=== PATIENT | male | born 1970 | race Caucasian/White ===

== ENCOUNTER 2021-01-18 15:37 | Inpatient (IN) | payer OTHER, MEDICAID, SELFPAY ==
[2021-01-18 17:24] VITALS: BP 145/79; PULSE 50; RESP 18; TEMP 36.8; O2SAT 100; BMI 30.7
--- NOTE | 2021-01-18 17:49 | ED_ITS ---
HPI - Psych General Chief Complaint: Psychiatric Symptoms <Belen Garcia PA-C - Last Filed: 01/18/21 17:53> Stated Complaint: psych eval <Belen Garcia PA-C - Last Filed: 01/18/21 17:53> Time Seen by Provider: 01/18/21 17:47 <Belen Garcia PA-C - Last Filed: 01/18/21 17:53> Source: patient <Belen Garcia PA-C - Last Filed: 01/18/21 17:53> Mode of arrival: ambulatory <Belen Garcia PA-C - Last Filed: 01/18/21 17:53> Limitations: no limitations <Belen Garcia PA-C - Last Filed: 01/18/21 17:53> History of Present Illness HPI Narrative: Patient is a 50-year-old male with past medical history of PTSD, depression, recovering addict x13 years, bariatric surgery, GERD, HLD and seasonal allergies who is here claiming he is severely depressed and looking for help. He states he also relapsed and used heroin 2 days ago and again today. He states he lost his job and he has been having difficulties with his significant other. He wants to get help, he does not want to do drugs but needs help with his psychiatric issues. He does state he has a therapist and does take sertraline and clonidine but this is not working well for him. <Belen Garcia PA-C - Last Filed: 01/18/21 17:53> Related Data Allergies/Adverse Reactions: Allergies Allergy/AdvReac Type Severity Reaction Status Date / Time No Known Allergies Allergy Unverified 01/12/20 19:45 [No Known Allergies*] <Belen Garcia PA-C - Last Filed: 01/18/21 17:53> Review of Systems Review of Systems: Yes all other systems are reviewed and are negative <Belen Garcia PA-C - Last Filed: 01/18/21 17:53> [facility] Social History Social History: Social History Advance Directives: No Advance Directives Information Provided: No <Belen Garcia PA-C - Last Filed: 01/18/21 17:53> Physical Exam Vital Signs: Vital Signs: Last Vital Signs Temp 98.2 F 01/18/21 17:24 Pulse 50 01/18/21 17:24 Resp 18 01/18/21 17:24 BP 145/79 H 01/18/21 17:24 Pulse Ox 100 01/18/21 17:24 Body Mass Index 30.7 <Belen Garcia PA-C - Last Filed: 01/18/21 17:53> Vital Signs: Last Vital Signs Temp 98.2 F 01/18/21 17:24 Pulse 50 01/18/21 17:24 Resp 18 01/18/21 17:24 BP 145/79 H 01/18/21 17:24 Pulse Ox 100 01/18/21 17:24 Body Mass Index 30.7 <KANDICE Doe - Last Filed: 01/18/21 20:44> Const: General: cooperative, healthy appearing, comfortable, no acute distress and well developed <Belen Garcia PA-C - Last Filed: 01/18/21 17:53> Orientation/consciousness: patient oriented x3 <OLINDA Williamson Last Filed: 01/18/21 17:53> Limitations: no limitations <OLINDA Williamson Last Filed: 01/18/21 17:53> HENMT: Head: Yes normal to inspection <OLINDA Williamson F iled: 01/18/21 17:53> Eyes: General: appearance normal, both eyes and all related structures <OLINDA Williamson Last Filed: 01/18/21 17:53> Neck: Neck: Yes normal visual inspection and Yes full ROM <OLINDA Williamson Last Filed: 01/18/21 17:53> Resp: Effort & Inspection: normal respiratory effort and able to speak in complete sentences <OLINDA Williamson Last Filed: 01/18/21 17:53> Auscultation: clear to auscultation bilaterally <OLINDA Williamson Last Filed: 01/18/21 17:53> Cardio: Rate: regular rate <OLNIDA Williamson Last Filed: 01/18/21 17:53> Rhythm: regular rhythm <Belen Garcia PA-C - Last Filed: 01/18/21 17:53> Heart sounds: normal S1 and S2 <Belen Garcia PA-C - Last Filed: 01/18/21 17:53> GI: Inspection: Yes normal to inspection <OLINDA Williamson Last Filed: 01/18/21 17:53> Palpation (GI): Soft to palpation and nontender <OLINDA Williamson Last Filed: 01/18/21 17:53> Skin: General skin exam: no rashes or lesions noted <FATMATA Williamson Last Filed: 01/18/21 17:53> Neuro: General: patient oriented x3 <OLINDA Williamson Last Filed: 01/18/21 17:53> Extrem: General: Yes normal to inspection <OLINDA Williamson Last Filed: 01/18/21 17:53> Course Course Course Narrative: Patient is a 50-year-old male with past medical history of PTSD, depression, recovering addict x13 years, bariatric surgery, GERD, HLD and seasonal allergies who is here claiming he is severely depressed and looking for help. He states he also relapsed and used heroin 2 days ago and again today. Vital signs are stable, patient is well-appearing however very tearful. Will do basic labs, COVID test and refer to PHN as well as have our drug and alcohol counselor speak to him. <Belen Garcia PA-C - Last Filed: 01/18/21 17:53> Reevaluation(s) Reevaluation #1: CARE team evaluated the patient - recommending inpatient level of care. Physician observation started at 8:43pm. Patient placed in physician observation because patient is awaiting inpatient psych admission. At the time observation was started patient's vital signs were stable. Patient is alert and oriented. Neuro exam is non-focal. CV: RRR and lungs are clear. Will continue to monitor. <KANDICE Doe Last Filed: 01/18/21 20:44> MDM - Psych Lab Data Result diagrams: : 01/18/21 18:01 01/18/21 18:01 <Belen Garcia PA-C - Last Filed: 01/18/21 17:53> Labs: Lab Results 01/18/21 01/18/21 01/18/21 Range/Units 17:39 17:39 18:01 WBC 6.3 (4.8-10.8) X10*3/uL RBC 4.08 L (4.60-5.80) X10*6/uL Hgb 12.1 L (14.0-18.0) g/dl Hct 36.1 L (42-52) % MCV 88.5 (80-98) fL MCH 29.7 (27.0-33.0) pg MCHC 33.5 (31.0-36.0) g/dl RDW 13.1 (11.0-16.0) % Plt Count 180 (160-400) X10*3/uL MPV 10.8 (9.4-12.4) fL Immature Gran % (Auto) 0.2 (0.0-0.4) % Neut % (Auto) 67.7 (45-73) % Lymph % (Auto) 24.1 (20-40) % [place] % (Auto) 6.6 (2-11) % Eos % (Auto) 0.9 (0-4) % Baso % (Auto) 0.5 (0-2) % Lymph # (Auto) 1.5 (1.2-4.9) X10*3/uL [place] # (Auto) 0.4 (0.1-1.2) X10*3/uL Eos # (Auto) 0.1 (0.0-0.4) X10*3/uL Baso # (Auto) 0.0 (0.0-0.2) X10*3/uL Abs Immat Gran (auto) 0.01 (0.00-0.03) X10*3/uL Absolute Neuts (auto) 4.3 (2.0-8.3) X10*3/uL Absolute Nucleated RBC 0.000 (0.0-0.012) X10*3/uL Nucleated RBC % (auto) 0.0 (0.0-0.2) /100WBC Sodium (135-145) mmol/L Potassium (3.3-5.1) mmol/L Chloride (96-108) mmol/L Carbon Dioxide (22-29) mmol/L Anion Gap (12-20) BUN (9-16) mg/dL Creatinine (0.5-1.4) mg/dL Estim Creat Clear Calc Estimated GFR Random Glucose (60-115) mg/dL Calcium (8.4-10.2) mg/dL Urine Opiates Screen Not Detected (Not Detect) Urine Fentanyl Screen Not Detected (Not Detect) Ur Barbiturates Screen Not Detected (Not Detect) Ur Phencyclidine Scrn Not Detected (Not Detect) Ur Amphetamines Screen Not Detected (Not Detect) U Benzodiazepines Scrn Not Detected (Not Detect) Urine Cocaine Screen POSITIVE H (Not Detect) U Marijuana (THC) Screen POSITIVE H (Not Detect) COVID-19 ([facility]) Negative (Negative) COVID-19 Clin Com See Note 01/18/21 Range/Units 18:01 WBC (4.8-10.8) X10*3/uL RBC (4.60-5.80) X10*6/uL Hgb (14.0-18.0) g/dl Hct (42-52) % MCV (80-98) fL MCH (27.0-33.0) pg MCHC (31.0-36.0) g/dl RDW (11.0-16.0) % Plt Count (160-400) X10*3/uL MPV (9.4-12.4) fL Immature Gran % (Auto) (0.0-0.4) % Neut % (Auto) (45-73) % Lymph % (Auto) (20-40) % [place] % (Auto) (2-11) % Eos % (Auto) (0-4) % Baso % (Auto) (0-2) % Lymph # (Auto) (1.2-4.9) X10*3/uL [place] # (Auto) (0.1-1.2) X10*3/uL Eos # (Auto) (0.0-0.4) X10*3/uL Baso # (Auto) (0.0-0.2) X10*3/uL Abs Immat Gran (auto) (0.00-0.03) X10*3/uL Absolute Neuts (auto) (2.0-8.3) X10*3/uL Absolute Nucleated RBC (0.0-0.012) X10*3/uL Nucleated RBC % (auto) (0.0-0.2) /100WBC Sodium 141 (135-145) mmol/L Potassium 4.2 (3.3-5.1) mmol/L Chloride 110 H (96-108) mmol/L Carbon Dioxide 25 (22-29) mmol/L Anion Gap 10 L (12-20) BUN 14 (9-16) mg/dL Creatinine 0.80 (0.5-1.4) mg/dL Estim Creat Clear Calc 104.7 Estimated GFR > 60 Random Glucose 129 H (60-115) mg/dL Calcium 9.2 (8.4-10.2) mg/dL Urine Opiates Screen (Not Detect) Urine Fentanyl Screen (Not Detect) Ur Barbiturates Screen (Not Detect) Ur Phencyclidine Scrn (Not Detect) Ur Amphetamines Screen (Not Detect) U Benzodiazepines Scrn (Not Detect) Urine Cocaine Screen (Not Detect) U Marijuana (THC) Screen (Not Detect) COVID-19 ([facility]) (Negative) COVID-19 Clin Com <Belen Garcia PA-C - Last Filed: 01/18/21 17:53> Lab Results 01/18/21 01/18/21 01/18/21 Range/Units 17:39 17:39 18:01 WBC 6.3 (4.8-10.8) X10*3/uL RBC 4.08 L (4.60-5.80) X10*6/uL Hgb 12.1 L (14.0-18.0) g/dl Hct 36.1 L (42-52) % MCV 88.5 (80-98) fL MCH 29.7 (27.0-33.0) pg MCHC 33.5 (31.0-36.0) g/dl RDW 13.1 (11.0-16.0) % Plt Count 180 (160-400) X10*3/uL MPV 10.8 (9.4-12.4) fL Immature Gran % (Auto) 0.2 (0.0-0.4) % Neut % (Auto) 67.7 (45-73) % Lymph % (Auto) 24.1 (20-40) % [place] % (Auto) 6.6 (2-11) % Eos % (Auto) 0.9 (0-4) % Baso % (Auto) 0.5 (0-2) % Lymph # (Auto) 1.5 (1.2-4.9) X10*3/uL [place] # (Auto) 0.4 (0.1-1.2) X10*3/uL Eos # (Auto) 0.1 (0.0-0.4) X10*3/uL Baso # (Auto) 0.0 (0.0-0.2) X10*3/uL Abs Immat Gran (auto) 0.01 (0.00-0.03) X10*3/uL Absolute Neuts (auto) 4.3 (2.0-8.3) X10*3/uL Absolute Nucleated RBC 0.000 (0.0-0.012) X10*3/uL Nucleated RBC % (auto) 0.0 (0.0-0.2) /100WBC Sodium (135-145) mmol/L Potassium (3.3-5.1) mmol/L Chloride (96-108) mmol/L Carbon Dioxide (22-29) mmol/L Anion Gap (12-20) BUN (9-16) mg/dL Creatinine (0.5-1.4) mg/dL Estim Creat Clear Calc Estimated GFR Random Glucose (60-115) mg/dL Calcium (8.4-10.2) mg/dL Urine Opiates Screen Not Detected (Not Detect) Urine Fentanyl Screen Not Detected (Not Detect) Ur Barbiturates Screen Not Detected (Not Detect) Ur Phencyclidine Scrn Not Detected (Not Detect) Ur Amphetamines Screen Not Detected (Not Detect) U Benzodiazepines Scrn Not Detected (Not Detect) Urine Cocaine Screen POSITIVE H (Not Detect) U Marijuana (THC) Screen POSITIVE H (Not Detect) COVID-19 ([facility]) Negative (Negative) COVID-19 Clin Com See Note 01/18/21 Range/Units 18:01 WBC (4.8-10.8) X10*3/uL RBC (4.60-5.80) X10*6/uL Hgb (14.0-18.0) g/dl Hct (42-52) % MCV (80-98) fL MCH (27.0-33.0) pg MCHC (31.0-36.0) g/dl RDW (11.0-16.0) % Plt Count (160-400) X10*3/uL MPV (9.4-12.4) fL Immature Gran % (Auto) (0.0-0.4) % Neut % (Auto) (45-73) % Lymph % (Auto) (20-40) % [place] % (Auto) (2-11) % Eos % (Auto) (0-4) % Baso % (Auto) (0-2) % Lymph # (Auto) (1.2-4.9) X10*3/uL [place] # (Auto) (0.1-1.2) X10*3/uL Eos # (Auto) (0.0-0.4) X10*3/uL Baso # (Auto) (0.0-0.2) X10*3/uL Abs Immat Gran (auto) (0.00-0.03) X10*3/uL Absolute Neuts (auto) (2.0-8.3) X10*3/uL Absolute Nucleated RBC (0.0-0.012) X10*3/uL Nucleated RBC % (auto) (0.0-0.2) /100WBC Sodium 141 (135-145) mmol/L Potassium 4.2 (3.3-5.1) mmol/L Chloride 110 H (96-108) mmol/L Carbon Dioxide 25 (22-29) mmol/L Anion Gap 10 L (12-20) BUN 14 (9-16) mg/dL Creatinine 0.80 (0.5-1.4) mg/dL Estim Creat Clear Calc 104.7 Estimated GFR > 60 Random Glucose 129 H (60-115) mg/dL Calcium 9.2 (8.4-10.2) mg/dL Urine Opiates Screen (Not Detect) Urine Fentanyl Screen (Not Detect) Ur Barbiturates Screen (Not Detect) Ur Phencyclidine Scrn (Not Detect) Ur Amphetamines Screen (Not Detect) U Benzodiazepines Scrn (Not Detect) Urine Cocaine Screen (Not Detect) U Marijuana (THC) Screen (Not Detect) COVID-19 ([facility]) (Negative) COVID-19 Clin Com <KADNICE Doe - Last Filed: 01/18/21 20:44> Discharge Plan Discharge Clinical Impression: Suicidal ideation <Belen Garcia PA-C - Last Filed: 01/18/21 17:53>
[2021-01-18 18:03] LABS: Amphetamine Screen Urine Not Detected (Not Detect); Barbiturates, Urine Not Detected (Not Detect); Benzodiazepines Screen Urine Not Detected (Not Detect); Cannabinoid Screen Urine POSITIVE (Not Detect); Cocaine Screen Urine POSITIVE (Not Detect); Fentanyl, urine Not Detected (Not Detect); Opiate Screen Urine Not Detected (Not Detect); Phencyclidine Screen Urine Not Detected (Not Detect)
[2021-01-18 18:06] LABS: MANUAL DIFF FLAG NO
[2021-01-18 18:07] LABS: Basophils Percent Auto 0.5 % (0-2); Eosinophils Absolute Auto 0.1 X10*3/uL (0.0-0.4); Eosinophils Percent Auto 0.9 % (0-4); Hematocrit 36.1 % (42-52); Hemoglobin 12.1 g/dl (14.0-18.0); Imm Gran Abs Auto 0.01 X10*3/uL (0.00-0.03); Imm Gran Pct Auto 0.2 % (0.0-0.4); Lymphocytes Absolute Auto 1.5 X10*3/uL (1.2-4.9); Lymphocytes Percent Auto 24.1 % (20-40); Mean Corpuscular HGB Conc 33.5 g/dl (31.0-36.0); Mean Corpuscular Hemoglobin 29.7 pg (27.0-33.0); Mean Corpuscular Volume 88.5 fL (80-98); Mean Platelet Volume 10.8 fL (9.4-12.4); Monocytes Absolute Auto 0.4 X10*3/uL (0.1-1.2); Monocytes Percent Auto 6.6 % (2-11); Neutrophils Absolute Auto 4.3 X10*3/uL (2.0-8.3); Neutrophils Percent Auto 67.7 % (45-73); Platelet Count 180 X10*3/uL (160-400); Red Blood Count 4.08 X10*6/uL (4.60-5.80); Red Cell Distribution Width 13.1 % (11.0-16.0); White Blood Count 6.3 X10*3/uL (4.8-10.8)
[2021-01-18 18:07] LABS: COVID-19 Test Negative (Negative); IDNOW Serial# 9DD0AD1C
[2021-01-18 18:21] LABS: Anion Gap 10 (12-20); Blood Urea Nitrogen 14 mg/dL (9-16); Calcium 9.2 mg/dL (8.4-10.2); Carbon Dioxide 25 mmol/L (22-29); Chloride 110 mmol/L (96-108); Creatinine Clr Calc Pharmacy 104.7; Estimated Glomerular Filt Rate > 60; Glucose Random 129 mg/dL (60-115); Potassium 4.2 mmol/L (3.3-5.1); Sodium 141 mmol/L (135-145)
[2021-01-18] MEDS: LORazepam 1 MG TABLET PO (22:15)
--- NOTE | 2021-01-19 | ECG_ITS ---
Test Reason : MEDICAL CLEAR Blood Pressure : / mmHG Vent. Rate : 040 BPM Atrial Rate : 040 BPM P-R Int : 214 ms QRS Dur : 104 ms QT Int : 460 ms P-R-T Axes : 036 029 061 degrees QTc Int : 374 ms Marked sinus bradycardia with 1st degree A-V block Abnormal ECG When compared with ECG of 14-FEB-2019 12:56, Heart rate has decreased CO interval has increased Referred By: Fransisco Westfall Electronically Signed By:AMBIKA BEAVERS
--- NOTE | 2021-01-19 06:17 | PC.NURSE ---
Patient slept through the night, no distress observed/reported, patient is accepted to [facility] pending transfer, behavior appropriate and non concerning, medication compliant, VSS, will continue to monitor.
[2021-01-19 06:30] VITALS: BP 105/60; PULSE 55; RESP 16; TEMP 36.6; O2SAT 98
--- NOTE | 2021-01-19 07:40 | PC.NURSE ---
patient appears to remain at rest at present, respirations even and unlabored, patient appears in no distress.
[2021-01-19 08:56] VITALS: BP 127/77; PULSE 58; RESP 14; TEMP 36.8; O2SAT 97
[2021-01-19 10:30] VITALS: BP 106/55; PULSE 45; RESP 14; TEMP 36.7; O2SAT 98
--- NOTE | 2021-01-19 11:03 | HO.PSYADMNOT ---
HPI Chief Complaint: depression Additional Sources of Information: Speedy is a 50-year-old [place], , father of a 14-year-old who lives in [place]. This is his 2nd psychiatric hospitalization 1st [facility] admission. He had gone to the emergency room yesterday because of increasing level of depression, suicidal ideations and plans. With current when he got to the unit today that he had actually taken 20 0.1 mg clonidine tablets. He is prescribed 0.2 mg nightly for high blood pressure. He denies any symptoms of dizziness even while standing. He is vital signs were reviewed with blood pressure of 106/55, heart rate of 45 and regular. EKG did not show any changes in the emergency room. He states that he has been under a lot of pressure lately. He has not been able to pay his rent in full, has started to use crack cocaine again with intermittent drinking. He lost his job last Thursday because of his drug use. He had worked for 2 years for [employer]. He also is having marital problems with his of for 5 years. He has had 1 suicide attempt a few years ago and was hospitalized at [facility] and that time it was an overdose also. He denies any active suicidal ideations currently and contracts for safety. He denies any auditory or visual hallucinations. No history of aggressive behaviors. He has been on Zoloft 200 mg daily, gabapentin 400 mg t.i.d. through his PCP. He is not connected to any mental health centers or treatment. HPI Medical Evaluation Reviewed: Yes [facility] Narrative: He does have history of diabetes but that stabilize after he had his gastric bypass surgery 2 years ago. He does have history of hypertension, hypercholesterolemia. Current medications were reviewed. The clonidine was held Narrative: Status post gastric bypass surgery 2 years ago Family History: Unknown Social History: Speedy is 1 of 3 siblings. He does not know the whereabouts of his mother. His father lives in this area. He does have a 14-year-old who lives in [place] with no contacts. He has been for the 1st time for for 5 years to his current but there are some marital problems and housing problems. He was laid off a few days ago because of his resumption of substance abuse. Substance History: Positive for intermittent alcohol use, cocaine and crack cocaine Trauma History: Unknown Diagnostics Vital Signs (24Hr): Vital Signs - 24 hr 01/18/21 17:24 01/19/21 06:30 01/19/21 08:56 Temperature 98.2 F 97.9 F 98.2 F Pulse Rate 50 55 58 Respiratory Rate 18 16 14 Blood Pressure 145/79 H 105/60 127/77 Pulse Oximetry 100 98 97 Body Mass Index 30.7 Labs Results: 01/18/21 18:01 01/18/21 18:01 Labs: Laboratory Results - last 48 hr 01/18/21 01/18/21 01/18/21 17:39 17:39 18:01 WBC 6.3 RBC 4.08 L Hgb 12.1 L Hct 36.1 L MCV 88.5 MCH 29.7 MCHC 33.5 RDW 13.1 Plt Count 180 MPV 10.8 Immature Gran % (Auto) 0.2 Neut % (Auto) 67.7 Lymph % (Auto) 24.1 [place] % (Auto) 6.6 Eos % (Auto) 0.9 Baso % (Auto) 0.5 Lymph # (Auto) 1.5 [place] # (Auto) 0.4 Eos # (Auto) 0.1 Baso # (Auto) 0.0 Abs Immat Gran (auto) 0.01 Absolute Neuts (auto) 4.3 Absolute Nucleated RBC 0.000 Nucleated RBC % (auto) 0.0 Sodium Potassium Chloride Carbon Dioxide Anion Gap BUN Creatinine Estim Creat Clear Calc Estimated GFR Random Glucose Calcium Urine Opiates Screen Not Detected Urine Fentanyl Screen Not Detected Ur Barbiturates Screen Not Detected Ur Phencyclidine Scrn Not Detected Ur Amphetamines Screen Not Detected U Benzodiazepines Scrn Not Detected Urine Cocaine Screen POSITIVE H U Marijuana (THC) Screen POSITIVE H COVID-19 ([facility]) Negative COVID-19 Clin Com See Note 01/18/21 18:01 WBC RBC Hgb Hct MCV MCH MCHC RDW Plt Count MPV Immature Gran % (Auto) Neut % (Auto) Lymph % (Auto) [place] % (Auto) Eos % (Auto) Baso % (Auto) Lymph # (Auto) [place] # (Auto) Eos # (Auto) Baso # (Auto) Abs Immat Gran (auto) Absolute Neuts (auto) Absolute Nucleated RBC Nucleated RBC % (auto) Sodium 141 Potassium 4.2 Chloride 110 H Carbon Dioxide 25 Anion Gap 10 L BUN 14 Creatinine 0.80 Estim Creat Clear Calc 104.7 Estimated GFR > 60 Random Glucose 129 H Calcium 9.2 Urine Opiates Screen Urine Fentanyl Screen Ur Barbiturates Screen Ur Phencyclidine Scrn Ur Amphetamines Screen U Benzodiazepines Scrn Urine Cocaine Screen U Marijuana (THC) Screen COVID-19 ([facility]) COVID-19 Clin Com Meds/Allergies Meds Home Medications Acetaminophen (Acetaminophen 325 Mg Tablet) 650 mg PO Q6H PRN PRN Reason: Headache/Pain Mild Scale (1-3) Al Hydroxide/Mg Hydroxide (Magnesium Hydrox/Alum Hydrox 30 Ml Oral.Susp) 30 ml PO Q6H PRN PRN Reason: Heartburn/Nausea Docusate Sodium (Docusate Sodium 100 Mg Capsule) 100 mg PO BID PRN PRN Reason: Constipation Gabapentin (Gabapentin 400 Mg Capsule) 400 mg PO TID LESLIE Hydroxyzine HCl (Hydroxyzine Hcl 25 Mg Tablet) 25 mg PO BEDTIME PRN PRN Reason: Anxiety Magnesium Hydroxide (Milk Of Magnesia 30 Ml Oral.Susp) 30 ml PO DAILY PRN PRN Reason: Constipation Sertraline HCl (Sertraline Hcl 100 Mg Tablet) 200 mg PO DAILY LESLIE Trazodone HCl (Trazodone Hcl 50 Mg Tablet) 50 mg PO BEDTIME PRN PRN Reason: Insomnia Allergies Allergies Allergy/AdvReac Type Severity Reaction Status Date / Time No Known Allergies Allergy Unverified 01/12/20 19:45 [No Known Allergies*] Mental Status Exam Mental Status Exam Narrative: Carroll hernandez was seen the day of his admission to this unit. He was seen with the help of border patrol agent but is also able to communicate in [place] fairly well. He was laying in bed. He is alert, oriented and pleasant. Speech is normal for rate and rhythm. Little to no eye contact and had his eyes closed throughout most of the interview. Affect is constricted. He does appear sad. He denies any auditory or visual hallucinations. He denies any current active suicidal ideations and contracts for safety. He did talk about is suicide attempt prior to going to the emergency room however did not discuss this fact with the ER physicians or the crisis team. Cognitively is intact. Judgment is intact Assessment & Plan Assessment & Plan (1) Suicidal ideation: Status: Acute Code(s): R45.851 - Suicidal ideations (2) Depression: Status: Acute Code(s): F32.9 - Major depressive disorder, single episode, unspecified Assessment and Plan: 50-year-old male with history of depression and multiple recent stressors with housing, employment and marriage and resumption of substance abuse. Current medications were continued except for clonidine which was held for now. Hospitalist consult will be obtained. Admission workup to be done. He will meet with his treatment team on 01/21/2021. Outpatient connections to be made Patient educated on: diagnosis, medication risk/benefits and substance abuse Reason for continued inpatient stay Substantial Risk for: harm to self and inability to function
[2021-01-19] MEDS: Omeprazole 20 MG CAPSULE.DR PO (12:22)
[2021-01-19] MEDS: Atorvastatin Calcium 20 MG TABLET PO (12:22)
[2021-01-19 12:30] VITALS: BP 131/63; PULSE 48; RESP 14; TEMP 36.8; O2SAT 98
[2021-01-19 14:30] VITALS: BP 141/64; PULSE 42; RESP 14; TEMP 36.6; O2SAT 96
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
[2021-01-19 20:41] VITALS: BP 121/65; PULSE 55; RESP 16; TEMP 36.8; O2SAT 99
--- NOTE | 2021-01-20 01:58 | PC.NURSE ---
PT in bed this shift resting, HR 55, MD notified, VSS. PT denies SI/HI at this time.
[2021-01-20] MEDS: Omeprazole 20 MG CAPSULE.DR PO (06:26)
--- NOTE | 2021-01-20 08:00 | P.PNPSI_ITS ---
Subjective Subjective Date of Service: 01/20/21 Reason For Visit: depression Subjective Notes: Conditional Voluntary Interim History: Patient was seen in rounds today. He is doing better and his vital signs have improved. His pulse rate was 53-55 and blood pressure 121/65. His EKG continues to show first-degree AV block which she has had before. He is eating some things but initially was refusing to eat and drink yesterday. After he got up and walked around he did start taking in some food than liquids. In today's visit he wants to leave and when I told him that he cannot leave but can sign a 3 day notice he got angry, got up and left the room. Also yesterday I ordered a serum Tylenol and aspirin levels but I believe he refused Medication Compliance: Intermittent Side effects from medications: No Review of Systems Medical Review of Systems: unchanged Review of Systems Review of Systems Yes all other systems are reviewed and are negative Mental Status Exam Mental Status Exam Narrative: In today's visit he is alert, interactive and able to communicate well in Upper Sorbian. He is not happy about being told that he cannot leave today and became angry and left the room Diagnostics Vital Signs (24Hr): Vital Signs - 24 hr 01/19/21 08:56 01/19/21 10:30 01/19/21 12:30 Temperature 98.2 F 98.0 F 98.3 F Pulse Rate 58 45 L 48 L Respiratory Rate 14 14 14 Blood Pressure 127/77 106/55 L 131/63 Pulse Oximetry 97 98 98 01/19/21 14:30 01/19/21 20:41 Temperature 97.9 F 98.3 F Pulse Rate 42 L 55 Respiratory Rate 14 16 Blood Pressure 141/64 H 121/65 Pulse Oximetry 96 99 Body Mass Index 30.7 Labs Results: 01/18/21 18:01 01/18/21 18:01 Labs: Laboratory Results - last 48 hr 01/18/21 01/18/21 01/18/21 17:39 17:39 18:01 WBC 6.3 RBC 4.08 L Hgb 12.1 L Hct 36.1 L MCV 88.5 MCH 29.7 MCHC 33.5 RDW 13.1 Plt Count 180 MPV 10.8 Immature Gran % (Auto) 0.2 Neut % (Auto) 67.7 Lymph % (Auto) 24.1 [place] % (Auto) 6.6 Eos % (Auto) 0.9 Baso % (Auto) 0.5 Lymph # (Auto) 1.5 [place] # (Auto) 0.4 Eos # (Auto) 0.1 Baso # (Auto) 0.0 Abs Immat Gran (auto) 0.01 Absolute Neuts (auto) 4.3 Absolute Nucleated RBC 0.000 Nucleated RBC % (auto) 0.0 Sodium Potassium Chloride Carbon Dioxide Anion Gap BUN Creatinine Estim Creat Clear Calc Estimated GFR Random Glucose Calcium Urine Opiates Screen Not Detected Urine Fentanyl Screen Not Detected Ur Barbiturates Screen Not Detected Ur Phencyclidine Scrn Not Detected Ur Amphetamines Screen Not Detected U Benzodiazepines Scrn Not Detected Urine Cocaine Screen POSITIVE H U Marijuana (THC) Screen POSITIVE H COVID-19 ([facility]) Negative COVID-19 Memamp Com See Note 01/18/21 18:01 WBC RBC Hgb Hct MCV MCH MCHC RDW Plt Count MPV Immature Gran % (Auto) Neut % (Auto) Lymph % (Auto) [place] % (Auto) Eos % (Auto) Baso % (Auto) Lymph # (Auto) [place] # (Auto) Eos # (Auto) Baso # (Auto) Abs Immat Gran (auto) Absolute Neuts (auto) Absolute Nucleated RBC Nucleated RBC % (auto) Sodium 141 Potassium 4.2 Chloride 110 H Carbon Dioxide 25 Anion Gap 10 L BUN 14 Creatinine 0.80 Estim Creat Clear Calc 104.7 Estimated GFR > 60 Random Glucose 129 H Calcium 9.2 Urine Opiates Screen Urine Fentanyl Screen Ur Barbiturates Screen Ur Phencyclidine Scrn Ur Amphetamines Screen U Benzodiazepines Scrn Urine Cocaine Screen U Marijuana (THC) Screen COVID-19 ([facility]) COVID-19 Clin Com Medications Medications Current Medications Acetaminophen (Acetaminophen 325 Mg Tablet) 650 mg PO Q6H PRN PRN Reason: Headache/Pain Mild Scale (1-3) Al Hydroxide/Mg Hydroxide (Magnesium Hydrox/Alum Hydrox 30 Ml Oral.Susp) 30 ml PO Q6H PRN PRN Reason: Heartburn/Nausea Docusate Sodium (Docusate Sodium 100 Mg Capsule) 100 mg PO BID PRN PRN Reason: Constipation Folic Acid (Folic Acid 1 Mg Tablet) 1 mg PO DAILY [facility] Last Admin: 01/19/21 14:41 Dose: Not Given Documented by: Gabapentin (Gabapentin 400 Mg Capsule) 400 mg PO TID [facility] Last Admin: 01/19/21 21:03 Dose: Not Given Documented by: Hydroxyzine HCl (Hydroxyzine Hcl 25 Mg Tablet) 25 mg PO BEDTIME PRN PRN Reason: Anxiety Magnesium Hydroxide (Milk Of Magnesia 30 Ml Oral.Susp) 30 ml PO DAILY PRN PRN Reason: Constipation Multivitamins/Vitamin C (Multivitamin Tablet) 1 tab PO DAILY [facility] Last Admin: 01/19/21 14:42 Dose: Not Given Documented by: Omeprazole (Omeprazole 20 Mg Capsule.Dr) 20 mg PO DAILY@0630 [facility] Last Admin: 01/20/21 06:26 Dose: 20 mg Documented by: Sertraline HCl (Sertraline Hcl 100 Mg Tablet) 200 mg PO DAILY [facility] Trazodone HCl (Trazodone Hcl 50 Mg Tablet) 50 mg PO BEDTIME PRN PRN Reason: Insomnia Allergies Allergies Allergy/AdvReac Type Severity Reaction Status Date / Time No Known Allergies Allergy Unverified 01/12/20 19:45 [No Known Allergies*] Assessment & Plan Assessment & Plan (1) Suicidal ideation: Status: Acute Code(s): R45.851 - Suicidal ideations (2) Depression: Status: Acute Code(s): F32.9 - Major depressive disorder, single episode, unspecified Assessment and Plan: 50-year-old male with history of depression and multiple recent stressors with housing, employment and marriage and resumption of substance abuse. Current medications were continued except for clonidine which was held for now. Hospitalist consult will be obtained. Admission workup to be done. He will meet with his treatment team on 01/21/2021. Outpatient connections to be made Continue current plans and no changes were made Reason for contiued inpatient stay Substantial Risk for: harm to self
[2021-01-20] MEDS: Loratadine 10 MG TABLET PO (17:56)
[2021-01-20 18:00] VITALS: BP 123/57; PULSE 98; RESP 16; TEMP 36.6; O2SAT 96
[2021-01-20] MEDS: Gabapentin 400 MG CAPSULE PO (21:08)
[2021-01-20] MEDS: traZODone HCL 50 MG TABLET PO (21:08)
[2021-01-21] MEDS: Folic Acid 1 MG TABLET PO (08:58)
[2021-01-21] MEDS: Loratadine 10 MG TABLET PO (08:58)
[2021-01-21] MEDS: Gabapentin 400 MG CAPSULE PO ×3 (08:58→20:24)
[2021-01-21] MEDS: Sertraline HCL 100 MG TABLET 200 MG PO (08:58)
[2021-01-21] MEDS: Multivitamin TABLET 1 TAB PO (09:04)
[2021-01-21] MEDS: Magnesium Hydrox/Alum Hydrox 30 ML ORAL.SUSP PO (09:49)
--- NOTE | 2021-01-21 15:10 | P.PNPSI_ITS ---
Subjective Subjective Date of Service: 01/21/21 Reason For Visit: depression Interim History: pt irritable, asking repeatedly when he can leave. states he is feeling better than on the weekend, more calm. becomes upset at MDs questions, asking if MD is just trying to irritate him. states he just wants to go home, he isn't comfortable here, he has a , an apartment, a dog. he denies SI/HI/AVH. MD informs pt he may discharge tomorrow. he responds with thanks. meds reviewed, reconciled, prescribed. pt will take trazodone instead of clonidine for now - his BP is not elevated currently. no other complaints or requests. 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 took HS meds last night. irritable. more pleasant this morning. 3-day matures . Mental Status Exam Mental Status Exam Narrative: He was seen with the help of educational sign language interpreter but is also able to communicate in Japanese fairly well. He was laying in bed. He is alert, oriented and irritable. some PMA of fidgetiness and leg bouncing. Speech is normal for rate and rhythm. thoughts linear and logical but focused on discharge. Little to no eye contact. Affect is constricted, irritable. mood fine. He denies any auditory or visual hallucinations. He denies any current active suicidal ideations and contracts for safety. Cognitively is intact. Judgment is intact Diagnostics Vital Signs (24Hr): Vital Signs - 24 hr 01/20/21 18:00 Temperature 97.8 F Pulse Rate 98 Respiratory Rate 16 Blood Pressure 123/57 L Pulse Oximetry 96 Body Mass Index 30.7 Labs Results: 01/18/21 18:01 01/18/21 18:01 Medications Medications Current Medications Acetaminophen (Acetaminophen 325 Mg Tablet) 650 mg PO Q6H PRN PRN Reason: Headache/Pain Mild Scale (1-3) Al Hydroxide/Mg Hydroxide (Magnesium Hydrox/Alum Hydrox 30 Ml Oral.Susp) 30 ml PO Q6H PRN PRN Reason: Heartburn/Nausea Last Admin: 01/21/21 09:49 Dose: 30 ml Documented by: Docusate Sodium (Docusate Sodium 100 Mg Capsule) 100 mg PO BID PRN PRN Reason: Constipation Folic Acid (Folic Acid 1 Mg Tablet) 1 mg PO DAILY [facility] Last Admin: 01/21/21 08:58 Dose: 1 mg Documented by: Gabapentin (Gabapentin 400 Mg Capsule) 400 mg PO TID [facility] Last Admin: 01/21/21 08:58 Dose: 400 mg Documented by: Hydroxyzine HCl (Hydroxyzine Hcl 25 Mg Tablet) 25 mg PO BEDTIME PRN PRN Reason: Anxiety Loratadine (Loratadine 10 Mg Tablet) 10 mg PO DAILY [facility] Last Admin: 01/21/21 08:58 Dose: 10 mg Documented by: Magnesium Hydroxide (Milk Of Magnesia 30 Ml Oral.Susp) 30 ml PO DAILY PRN PRN Reason: Constipation Multivitamins/Vitamin C (Multivitamin Tablet) 1 tab PO DAILY [facility] Last Admin: 01/21/21 09:04 Dose: 1 tab Documented by: Omeprazole (Omeprazole 20 Mg Capsule.Dr) 20 mg PO DAILY@0630 [facility] Last Admin: 01/21/21 09:05 Dose: Not Given Documented by: Sertraline HCl (Sertraline Hcl 100 Mg Tablet) 200 mg PO DAILY [facility] Last Admin: 01/21/21 08:58 Dose: 200 mg Documented by: Trazodone HCl (Trazodone Hcl 50 Mg Tablet) 50 mg PO BEDTIME PRN PRN Reason: Insomnia Last Admin: 01/20/21 21:08 Dose: 50 mg Documented by: Allergies Allergies Allergy/AdvReac Type Severity Reaction Status Date / Time No Known Allergies Allergy Unverified 01/12/20 19:45 [No Known Allergies*] Assessment & Plan Assessment & Plan (1) Suicidal ideation: Status: Acute Code(s): R45.851 - Suicidal ideations (2) Depression: Status: Acute Code(s): F32.9 - Major depressive disorder, single episode, unspecified Assessment and Plan: 50-year-old male with history of depression and multiple recent stressors with housing, employment and marriage and resumption of substance abuse. Current medications were continued except for clonidine which was held for now. continue current mgmt. use trazodone for sleep instead of clonidine. obtain aftercare and discharge tomorrow. Greater than 50% of the session was spent on counseling and/or coordination of care Reason for contiued inpatient stay Substantial Risk for: harm to self
--- NOTE | 2021-01-21 15:31 | MHC.CLN ---
NUTRITION PATIENT HAD BARIATRIC SURGERY 2 YEARS AGO. DOES NOT WANT BARIATRIC DIET. ATE WHOLE SUBWAY SANDWICH AND PLANS TO HAVE BRING OTHER FOOD TODAY. EATING SNACK OF CEREAL AT VISIT.
[2021-01-21] MEDS: traZODone HCL 50 MG TABLET PO (20:24)
[2021-01-22 08:45] VITALS: BP 152/95; PULSE 62; RESP 18; TEMP 36.2; O2SAT 98
[2021-01-22] MEDS: Sertraline HCL 100 MG TABLET 200 MG PO (08:56)
[2021-01-22] MEDS: Loratadine 10 MG TABLET PO (08:56)
[2021-01-22] MEDS: Folic Acid 1 MG TABLET PO (08:56)
[2021-01-22] MEDS: Gabapentin 400 MG CAPSULE PO (08:56)
[2021-01-22] MEDS: Omeprazole 20 MG CAPSULE.DR PO (08:56)
[2021-01-22] MEDS: Multivitamin TABLET 1 TAB PO (08:56)
--- NOTE | 2021-01-22 10:50 | PM.PSYDC ---
DS: Providers Provider Date of Service: 01/22/21 Date of admission: 01/19/21 07:57 Primary care physician: Unknown Physician DS: Diagnosis Discharge Diagnosis (1) Suicidal ideation: Status: Acute (2) Depression: Status: Acute DS: Medications Discharge Medications Home Medications: Home Medications Medication Instructions Recorded Confirmed atorvastatin 20 mg tablet 1 tab PO DAILY 01/19/21 01/19/21 docusate sodium 100 mg capsule 1 cap PO BID PRN 01/19/21 01/19/21 docusate sodium 100 mg capsule 1 cap PO BID PRN 01/19/21 01/19/21 (DOK) gabapentin 400 mg capsule 1 cap PO TID 01/19/21 01/19/21 omeprazole 20 mg capsule,delayed 1 cap PO BID 01/19/21 01/19/21 release vits no.130-ferrous fum 1 tab PO DAILY 01/19/21 01/19/21 27 mg iron-folic acid 800 mcg tablet ( Vitamin) sertraline 100 mg tablet 2 tab PO DAILY 01/19/21 01/19/21 Previous Rx's Medication Instructions Recorded trazodone 50 mg tablet 50 mg PO BEDTIME PRN 30 Days #30 01/21/21 tab Mental Status Exam Mental Status Exam Narrative: He is alert, oriented and pleasant. some PMA of fidgetiness. Speech is normal for rate and rhythm. thoughts linear and logical. fair eye contact. Affect is flexible, appropriate. mood good. He denies any auditory or visual hallucinations. He denies any current active suicidal ideations and contracts for safety. Cognitively is intact. Judgment is intact Data Data Completed and Pending Completed studies during hospitalization [Text1]: 01/18/21 01/18/21 01/18/21 17:39 17:39 18:01 WBC 6.3 RBC 4.08 L Hgb 12.1 L Hct 36.1 L MCV 88.5 MCH 29.7 MCHC 33.5 RDW 13.1 Plt Count 180 MPV 10.8 Immature Gran % (Auto) 0.2 Neut % (Auto) 67.7 Lymph % (Auto) 24.1 [place] % (Auto) 6.6 Eos % (Auto) 0.9 Baso % (Auto) 0.5 Lymph # (Auto) 1.5 [place] # (Auto) 0.4 Eos # (Auto) 0.1 Baso # (Auto) 0.0 Abs Immat Gran (auto) 0.01 Absolute Neuts (auto) 4.3 Absolute Nucleated RBC 0.000 Nucleated RBC % (auto) 0.0 Sodium Potassium Chloride Carbon Dioxide Anion Gap BUN Creatinine Estim Creat Clear Calc Estimated GFR Random Glucose Calcium Urine Opiates Screen Not Detected Urine Fentanyl Screen Not Detected Ur Barbiturates Screen Not Detected Ur Phencyclidine Scrn Not Detected Ur Amphetamines Screen Not Detected U Benzodiazepines Scrn Not Detected Urine Cocaine Screen POSITIVE H U Marijuana (THC) Screen POSITIVE H COVID-19 ([facility]) Negative COVID-19 Clin Com See Note 01/18/21 18:01 WBC RBC Hgb Hct MCV MCH MCHC RDW Plt Count MPV Immature Gran % (Auto) Neut % (Auto) Lymph % (Auto) [place] % (Auto) Eos % (Auto) Baso % (Auto) Lymph # (Auto) [place] # (Auto) Eos # (Auto) Baso # (Auto) Abs Immat Gran (auto) Absolute Neuts (auto) Absolute Nucleated RBC Nucleated RBC % (auto) Sodium 141 Potassium 4.2 Chloride 110 H Carbon Dioxide 25 Anion Gap 10 L BUN 14 Creatinine 0.80 Estim Creat Clear Calc 104.7 Estimated GFR > 60 Random Glucose 129 H Calcium 9.2 Urine Opiates Screen Urine Fentanyl Screen Ur Barbiturates Screen Ur Phencyclidine Scrn Ur Amphetamines Screen U Benzodiazepines Scrn Urine Cocaine Screen U Marijuana (THC) Screen COVID-19 ([facility]) COVID-19 Clin Com DS: Summary Hospital Course Hospital Course: noemi Bolden 01/19 H&P: Additional Sources of Information: Speedy is a 50-year-old [place], , father of a 14-year-old who lives in [place].? This is his 2nd psychiatric hospitalization 1st [facility] admission.? He had gone to the emergency room yesterday because of increasing level of depression, suicidal ideations and plans.? With current when he got to the unit today that he had actually taken 20 0.1 mg clonidine tablets.? He is prescribed 0.2 mg nightly for high blood pressure.? He denies any symptoms of dizziness even while standing.? He is vital signs were reviewed with blood pressure of 106/55, heart rate of 45 and regular.? EKG did not show any changes in the emergency room.? He states that he has been under a lot of pressure lately.? He has not been able to pay his rent in full, has started to use crack cocaine again with intermittent drinking.? He lost his job last Thursday because of his drug use.? He had worked for 2 years for [employer].? He also is having marital problems with his of for 5 years.? He has had 1 suicide attempt a few years ago and was hospitalized at [facility] and that time it was an overdose also.? He denies any active suicidal ideations currently and contracts for safety.? He denies any auditory or visual hallucinations.? No history of aggressive behaviors. He has been on Zoloft 200 mg daily, gabapentin 400 mg t.i.d. through his PCP.? He is not connected to any mental health centers or treatment. HPI Medical Evaluation Reviewed: Yes [facility] Narrative: He does have history of diabetes but that stabilize after he had his gastric bypass surgery 2 years ago.? He does have history of hypertension, hypercholesterolemia.? Current medications were reviewed.? The clonidine was held Narrative: Status post gastric bypass surgery 2 years ago Family History: Unknown Social History: Speedy is 1 of 3 siblings.? He does not know the whereabouts of his mother.? His father lives in this area.? He does have a 14-year-old who lives in [place] with no contacts.? He has been for the 1st time for for 5 years to his current but there are some marital problems and housing problems.? He was laid off a few days ago because of his resumption of substance abuse. Substance History: Positive for intermittent alcohol use, cocaine and crack cocaine Trauma History: Unknown per Yuan 01/20 Progress Note: Patient was seen in rounds today.? He is doing better and his vital signs have improved.? His pulse rate was 53-55 and blood pressure 121/65.? His EKG continues to show first-degree AV block which she has had? before.? He is eating some things but initially was refusing to eat and drink yesterday.? After he got up and walked around he did start taking in some food than liquids.? In today's visit he wants to leave and when I told him that he cannot leave but can sign a 3 day notice he got angry, got up and left the room.? Also yesterday I ordered a serum Tylenol and aspirin levels but I believe he refused Medication Compliance: Intermittent per Martin 01/21 Progress Note: pt irritable, asking repeatedly when he can leave.? states he is feeling better than on the weekend, more calm.? becomes upset at MDs questions, asking if MD is just trying to irritate him.? states he just wants to go home, he isn't comfortable here, he has a , an apartment, a dog.? he denies SI/HI/AVH.? MD informs pt he may discharge tomorrow.? he responds with thanks.? meds reviewed, reconciled, prescribed.? pt will take trazodone instead of clonidine for now - his BP is not elevated currently.? no other complaints or requests.? 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 took HS meds last night.? irritable.? more pleasant this morning.? 3-day matures . 01/22: pt reports he continues to do well and wants to discharge. denies any safety concerns. awaiting aftercare appointments. per staff, slept well overnight, no issues. discharged in the afternoon after aftercare arranged and brought his car keys. Time Spent with Patient Time attestation: Total time spent providing and/or coordinating discharge services: Discharge Plan Discharge Patient Disposition: Home, Self-Care Discharge Diagnosis: Major Depressive Disorder, Severe, Recurrent Referrals: Pieter Calhoun (Intake for Therapy & Psychiatry) [Other] - 01/31/21 8:45 am (Telehealth Appointment This intake appointment is to put both a therapist and a psychiatrist in place for you. ) [facility] [Physician] - 1 Week Physician,Unknown [Primary Care Provider] - 1 Week Discharge Medications: New trazodone 50 mg Tablet 50 mg PO BEDTIME PRN (Reason: Insomnia) 30 Days Qty: 30 RF: 0 Continued atorvastatin 20 mg tablet 1 tab PO DAILY RF: 0 gabapentin 400 mg capsule 1 cap PO TID RF: 0 sertraline 100 mg tablet 2 tab PO DAILY RF: 0 docusate sodium 100 mg capsule 1 cap PO BID PRN (Reason: constipation) RF: 0 docusate sodium [DOK] 100 mg capsule 1 cap PO BID PRN (Reason: constipation) RF: 0 omeprazole 20 mg capsule,delayed release(DR/EC) 1 cap PO BID RF: 0 Vitamin 27 mg iron- 800 mcg tablet 1 tab PO DAILY RF: 0 Discontinued clonidine HCl 0.1 mg tablet 2 tab PO BEDTIME RF: 0 Discharge Orders: Discharge Order (Routine); Ordered 01/22/21 Ordered By: Cristian Salazar Activity on Discharge: As tolerated Stand Alone Forms: Patient Portal Discharge page, Community Support Care Plan Goals: maintain independent living in the community and stable in outpatient treatment Health Concerns: none Plan of Treatment: take medications as prescribed, attend appointments as scheduled. Assessment: not at imminent risk of harm to self or others Discharge Date/Time: 01/22/21 13:00
== END 2021-01-22 13:00 | disposition home or self-care (01) | DRG 754 ==
LOC: HO.ED 23:11 → HO.PADLT16 01-19 08:03
PROVIDERS: Physician Assistant; Admitting Provider Psychiatry & Neurology Psychiatry; Emergency Provider Emergency Medicine; Visit Provider Social Worker
DX: F32.9 Major depressive disorder, single episode, unspecified (principal); R45.851 Suicidal ideations; E78.5 Hyperlipidemia, unspecified; K21.9 Gastro-esophageal reflux disease without esophagitis; F17.210 Nicotine dependence, cigarettes, uncomplicated; Z71.6 Tobacco abuse counseling; Z20.822 Contact with and (suspected) exposure to COVID-19; Z98.84 Bariatric surgery status; Z79.899 Other long term (current) drug therapy
CPT/HCPCS: 36415; 80048; 80307; 85025; 87635; 93005; 99285

== ENCOUNTER 2021-01-31 07:32 | Emergency (ER) | payer MEDICAID, SELFPAY ==
[2021-01-31 07:49] VITALS: BP 167/105; PULSE 62; RESP 18; TEMP 36.7; O2SAT 98; BMI 33.6
--- NOTE | 2021-01-31 07:59 | ED.GENADULT ---
HPI - General Adult General Chief complaint: General Medical Stated complaint: CONGESTION COUGH DIARRHEA HEADACHE Time Seen by Provider: 01/31/21 07:58 Source: patient Mode of arrival: ambulatory Limitations: no limitations History of Present Illness HPI narrative: 50 y/o male with history of depression presenting to the ER with 2 days of nasal congestion, headaches, body aches, and intermittent diarrhea. He reports his was just diagnosed with RSV. She also has similar symptoms at home. He denies any shortness of breath or chest pain. He has an intermittent dry cough. He reports 3 episodes of nonbloody diarrhea yesterday. He has no abdominal pain. He is able to tolerate p.o. just fine. He has no vomiting. He is fully vaccinated against COVID-19. He is worried about going to work well as not feeling well. MD complaint: Diarrhea, congestion, body aches Onset (ago): day(s) (two) Location: head, face and abdomen Radiation: non-radiation Severity: mild Severity scale (1-10): 4 Quality: aching Pain Consistency: intermittent Relieving factors: medication Exacerbating factors: none Associated symptoms: cough, headaches and malaise Treatments prior to arrival: none Related Data Home Medications Medication Instructions Recorded Confirmed atorvastatin 20 mg tablet 1 tab PO DAILY 01/19/21 01/19/21 docusate sodium 100 mg capsule 1 cap PO BID PRN 01/19/21 01/19/21 docusate sodium 100 mg capsule 1 cap PO BID PRN 01/19/21 01/19/21 (DOK) gabapentin 400 mg capsule 1 cap PO TID 01/19/21 01/19/21 omeprazole 20 mg capsule,delayed 1 cap PO BID 01/19/21 01/19/21 release vits no.130-ferrous fum 1 tab PO DAILY 01/19/21 01/19/21 27 mg iron-folic acid 800 mcg tablet ( Vitamin) sertraline 100 mg tablet 2 tab PO DAILY 01/19/21 01/19/21 Previous Rx's Medication Instructions Recorded trazodone 50 mg tablet 50 mg PO BEDTIME PRN 30 Days #30 01/21/21 tab Allergies Allergy/AdvReac Type Severity Reaction Status Date / Time No Known Allergies Allergy Verified 01/31/21 07:49 [No Known Allergies*] Review of Systems Review of Systems: Constitutional: No Fever, No Chills ENT/Mouth: No sore throat, + Rhinorrhea, No Swallowing Difficulty, +Nasal congestion Cardiovascular: No Chest Pain, No SOB Respiratory: + Cough, No Sputum, No Wheezing, No dyspnea Gastrointestinal: No Nausea, No Vomiting, + Diarrhea, No abdominal Pain, No Hematochezia, No Melena Genitourinary: No Dysuria, No Urinary Frequency, No Hematuria Musculoskeletal: No joint pain, + Myalgias Skin: No Skin Lesions, No rash Neuro: No Weakness, No Numbness, No Dizziness, + Headache Heme/Lymph: No Lymphadenopathy [facility] Social History Social History Housing: Homeless Do you presently have visiting nurse or other home services: No Patient Tobacco Use Status: Never used Tobacco Tobacco use type: Cigarette Cigarette Packs Per Day: 1 Cigarettes Per Day: 20.0 e-Cigarette/Vaping Use: Never Used Second Hand Smoke Exposure: No Substance Use Type: Crack/Cocaine and Prescription Drugs Advance Directives: No Advance Directives Information Provided: No service: No Sexual orientation: Straight/Heterosexual Physical Exam Vital Signs: Vital Signs: Last Vital Signs Temp 98.0 F 01/31/21 07:49 Pulse 62 01/31/21 07:49 Resp 18 01/31/21 07:49 BP 167/105 H 01/31/21 07:49 Pulse Ox 98 01/31/21 07:49 Body Mass Index 33.6 Appearance: Alert. Oriented X3. No acute distress. Eyes: normal external inspection ENT: Pharynx normal. Clear nasal congestion. No tonsillar erythema or exudate. Neck: Normal inspection. Neck supple. CVS: Normal heart rate and rhythm. Pulses normal. Respiratory: No respiratory distress. Breath sounds normal. Abdomen: Soft and nontender. +BS x4 Skin: Skin warm and dry. Normal skin color. Normal skin turgor. No rashes. Extremities: No lower extremity edema. Neuro: Oriented X 3. Grossly normal. Course Course Course Narrative: 50-year-old male presenting with signs and symptoms of a viral illness. His is positive for RSV. His symptoms are most likely due to RSV. He is concerned about going to work while sick. He is clinically nontoxic appearing with clear lungs. His abdomen is benign. He is tolerating p.o.. We will swab for COVID flu and RSV. Will provide a work note. We will call him with the results. He is stable for discharge home. Discharge Plan Discharge Clinical Impression: Acute viral syndrome Patient Disposition: Home, Self-Care Instructions: Viral Syndrome (ED) Additional Instructions: Your symptoms are most likely due to RSV. You were swabbed for Flu, COVID-19 & RSV. We will call you with the results this morning. Do not go out into public while you are not feeling well. Rest. Drink plenty of fluids. Take over the counter cold/flu medications as needed for your symptoms. Take Tylenol and/or Motrin as needed for fevers and body aches. Recommend over the counter Imodium or Pepto Bismol for your diarrhea. Follow up with your doctor this week. If you develop new or worsening symptoms call 911 or come back to the ER for further evaluation. Prescriptions: No Action atorvastatin 20 mg tablet 1 tab PO DAILY RF: 0 gabapentin 400 mg capsule 1 cap PO TID RF: 0 sertraline 100 mg tablet 2 tab PO DAILY RF: 0 docusate sodium 100 mg capsule 1 cap PO BID PRN (Reason: constipation) RF: 0 docusate sodium [DOK] 100 mg capsule 1 cap PO BID PRN (Reason: constipation) RF: 0 omeprazole 20 mg capsule,delayed release(DR/EC) 1 cap PO BID RF: 0 Vitamin 27 mg iron- 800 mcg tablet 1 tab PO DAILY RF: 0 trazodone 50 mg Tablet 50 mg PO BEDTIME PRN (Reason: Insomnia) 30 Days Qty: 30 RF: 0 Stand Alone Forms: Work/School Release
[2021-01-31 09:39] LABS: Influenza A PCR NEGATIVE (Negative); Influenza B PCR NEGATIVE (Negative); Resp Syncy Virus RNA Qual PCR POSITIVE (Negative); SARS COV2 PCR INHOUSE NEGATIVE (Negative)
== END 2021-01-31 10:02 | disposition home or self-care (01) ==
PROVIDERS: Emergency Provider Emergency Medicine
DX: B34.9 Viral infection, unspecified (principal); Z20.822 Contact with and (suspected) exposure to COVID-19
CPT/HCPCS: 0241U; 36415; 99282; 99283

== ENCOUNTER 2021-04-10 12:50 | Outpatient (REF) | payer MEDICAID, SELFPAY ==
[2021-04-10 13:12] LABS: COVID-19 Test Negative (Negative)
== END 2021-04-10 12:51 | disposition home or self-care (01) ==
LOC: HO.LAB 12:50
PROVIDERS: Visit Provider Internal Medicine
DX: Z20.822 Contact with and (suspected) exposure to COVID-19 (principal)
CPT/HCPCS: 36415; 87635; C9803

== ENCOUNTER 2021-06-18 10:49 | Emergency (ER) | payer MEDICAID, SELFPAY ==
[2021-06-18 10:55] VITALS: BP 142/84; PULSE 67; RESP 18; TEMP 36.8; O2SAT 99; BMI 31.8
--- NOTE | 2021-06-18 10:59 | ECG_ITS ---
Test Reason : ?od Blood Pressure : / mmHG Vent. Rate : 060 BPM Atrial Rate : 060 BPM P-R Int : 188 ms QRS Dur : 094 ms QT Int : 396 ms P-R-T Axes : 046 019 026 degrees QTc Int : 396 ms Normal sinus rhythm Normal ECG When compared with ECG of 19-JAN-2021 01:42, Vent. rate has increased BY 20 BPM Referred By: Generic ED Physician Electronically Signed By:ASHANTI HENSON
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
[2021-06-18 11:39] LABS: MANUAL DIFF FLAG NO
[2021-06-18 11:43] LABS: Venous Blood Gas Refer to POC result
[2021-06-18 11:44] LABS: VBG Base Excess 1.9 mmol/L; VBG HCO3 24 mmol/L (22-26); VBG pCO2 31 mmHg; VBG pH 7.49 (7.32-7.43); VBG pO2 130 mmHg
[2021-06-18 11:47] LABS: Basophils Absolute Auto 0.1 X10*3/uL (0.0-0.2); Basophils Percent Auto 0.7 % (0-2); Eosinophils Absolute Auto 0.1 X10*3/uL (0.0-0.4); Eosinophils Percent Auto 1.4 % (0-4); Hematocrit 40.1 % (42.0-52.0); Hemoglobin 13.6 g/dl (14.0-18.0); Imm Gran Abs Auto 0.01 X10*3/uL (0.00-0.03); Imm Gran Pct Auto 0.1 % (0.0-0.4); Lymphocytes Absolute Auto 1.3 X10*3/uL (1.2-4.9); Lymphocytes Percent Auto 18.7 % (20-40); Mean Corpuscular HGB Conc 33.9 g/dl (31.0-36.0); Mean Corpuscular Hemoglobin 29.4 pg (27.0-33.0); Mean Corpuscular Volume 86.8 fL (80.0-98.0); Mean Platelet Volume 10.9 fL (9.4-12.4); Monocytes Absolute Auto 0.5 X10*3/uL (0.1-1.2); Monocytes Percent Auto 7.4 % (2-11); Neutrophils Percent Auto 71.7 % (45-73); Platelet Count 202 X10*3/uL (160-400); Red Blood Count 4.62 X10*6/uL (4.60-5.80); Red Cell Distribution Width 12.5 % (11.0-16.0)
[2021-06-18 11:48] LABS: Delay - Chemistry DELAY; INTERNATIONAL NORM RATIO 1.1 (0.9-1.1); Prothrombin Time 12.1 SEC (9.9-13.0)
[2021-06-18 11:53] LABS: Ethanol < 10 mg/dL
[2021-06-18 11:59] LABS: Alanine Aminotransferase 11 U/L (0-40); Albumin Level 4.4 g/dL (3.5-5.0); Alkaline Phosphatase 74 U/L (39-117); Anion Gap 12 (12-20); Aspartate Amino Transferase 19 U/L (5-37); Bilirubin Direct 0.2 mg/dL (0.0-0.5); Bilirubin Total 0.6 mg/dL (0.0-1.0); Blood Urea Nitrogen 15 mg/dL (9-16); Calcium 9.3 mg/dL (8.4-10.2); Carbon Dioxide 24 mmol/L (22-29); Chloride 105 mmol/L (96-108); Creatinine Clr Calc Pharmacy 108.2; Estimated Glomerular Filt Rate > 60; Glucose Random 106 mg/dL (60-115); Magnesium 2.1 mg/dL (1.6-2.6); Sodium 137 mmol/L (135-145); Total Protein 6.7 g/dL (6.5-8.0)
[2021-06-18 12:15] VITALS: BP 109/70; PULSE 45; RESP 12
[2021-06-18 12:17] LABS: COVID-19 Test Negative (Negative); IDNOW Serial# 55D5AD1C
--- NOTE | 2021-06-18 13:00 | PC.NURSE ---
Pt. laying on stretcher. Sitter maintained. monitor on.
[2021-06-18 14:15] LABS: Acetaminophen LAB < 1 mcg/mL (<30); Salicylate < 5.0 mg/dL (15-30)
--- NOTE | 2021-06-18 15:00 | PC.NURSE ---
PT SLEEPING, SNORING. AWAITING BHN EVAL
[2021-06-18 15:01] VITALS: BP 100/58; PULSE 57; RESP 16
--- NOTE | 2021-06-18 15:30 | PC.NURSE ---
BHN Data transfer completed at this time. pt medically cleared
[2021-06-18 15:41] VITALS: BP 95/64; PULSE 53; RESP 14; O2SAT 97
--- NOTE | 2021-06-18 16:16 | MHC.CARE ---
This advertising copywriter contacted [facility] crisis intake- a clinician will be arriving shortly to evaluate pt.
--- NOTE | 2021-06-18 16:40 | PC.NURSE ---
checked on pt - he was sleeping. woke easily to verbal. initially only nodding yes and no to t/w. reported he didn't want to talk at this time.
--- NOTE | 2021-06-18 17:55 | PC.NURSE ---
pt speaking with N - making statements about t/w to N she's a fucking bitch . later pt saw t/w and stated yea you bitch slapping his hands together. pt d/s with security present by Dr Montelongo
== END 2021-06-18 17:57 | disposition home or self-care (01) ==
PROVIDERS: Emergency Provider Emergency Medicine
DX: F32.A Depression, unspecified (principal); F19.10 Other psychoactive substance abuse, uncomplicated; R45.851 Suicidal ideations; R45.1 Restlessness and agitation; Z20.822 Contact with and (suspected) exposure to COVID-19; F41.9 Anxiety disorder, unspecified; E78.5 Hyperlipidemia, unspecified; F17.200 Nicotine dependence, unspecified, uncomplicated; Z72.89 Other problems related to lifestyle; Z63.4 Disappearance and death of family member; Z79.02 Long term (current) use of antithrombotics/antiplatelets; Z79.899 Other long term (current) drug therapy
CPT/HCPCS: 36415; 80048; 80076; 80143; 80179; 82077; 82803; 83735; 85025; 85610; 87635; 93005; 99284

== ENCOUNTER 2021-06-19 06:17 | Inpatient (IN) | payer OTHER, SELFPAY ==
--- NOTE | 2021-06-19 | ECG_ITS ---
Test Reason : CP Blood Pressure : / mmHG Vent. Rate : 060 BPM Atrial Rate : 060 BPM P-R Int : 182 ms QRS Dur : 096 ms QT Int : 410 ms P-R-T Axes : 035 055 037 degrees QTc Int : 410 ms Normal sinus rhythm Normal ECG When compared with ECG of 18-JUN-2021 10:57, No significant change was found Referred By: Fransisco Westfall Electronically Signed By:ASHANTI HENSON
[2021-06-19 06:23] VITALS: BP 129/91; PULSE 84; RESP 20; TEMP 37; O2SAT 98; BMI 33.8
[2021-06-19 06:58] LABS: Appearance Urine CLEAR; Color Urine YELLOW; Glucose Urine UA NEG (NEG); Leukocyte Esterase Urine NEG (NEG); Nitrite Urine NEG (NEG); Urine Blood NEG (NEG); Urine Ketones NEG (NEG); Urine Protein NEG (NEG-TRACE)
[2021-06-19 07:16] LABS: COVID-19 Test Negative (Negative)
--- NOTE | 2021-06-19 07:21 | PC.NURSE ---
Chhaya from [facility] called to verify that they received consult for pt. per Chhaya pt will not be seen until after 1000 today. pt currently in room resting quietly, will continue to monitor.
[2021-06-19 07:24] LABS: Amphetamine Screen Urine Not Detected (Not Detect); Barbiturates, Urine Not Detected (Not Detect); Benzodiazepines Screen Urine Not Detected (Not Detect); Cannabinoid Screen Urine POSITIVE (Not Detect); Cocaine Screen Urine POSITIVE (Not Detect); Fentanyl, urine Not Detected (Not Detect); Opiate Screen Urine Not Detected (Not Detect); Phencyclidine Screen Urine Not Detected (Not Detect)
--- NOTE | 2021-06-19 07:24 | ED.PSYCH ---
HPI - Psych General Chief Complaint: Psychiatric Symptoms Stated Complaint: migraine Time Seen by Provider: 06/19/21 06:40 Source: patient Mode of arrival: ambulatory Limitations: no limitations History of Present Illness HPI Narrative: Patient is a 51-year-old male with a history of GERD, HLD, depression, polysubstance abuse. Patient presents to the emergency department with increasing depression and anxiety in addition to suicidal ideations. He reports that at times he feels like overdosing on his medications, but states that he did not do this. He has been peeing increasingly down about himself, no longer wanting to live. States that over the last few months he began smoking a crack again after 13 years of sobriety. He was seen in the emergency department for similar symptoms yesterday, having reported that he took 10 tablets of gabapentin. He was evaluated by S on with the plan for discharge home in telephone contact later in the evening, and patient reports he ultimately felt well enough to go back home. However, he states once arriving home he felt worse and therefore he came back to the emergency department today. Denies fevers, chills, headache, dizziness, chest pain, palpitations, shortness of breath, N/V/D, abdominal pain, weakness. Related Data Home Medications Medication Instructions Recorded Confirmed atorvastatin 20 mg tablet 1 tab PO DAILY 06/19/21 06/19/21 cetirizine 10 mg tablet 1 tab PO DAILY 06/19/21 06/19/21 clonidine HCl 0.1 mg tablet 2 tab PO BEDTIME 06/19/21 06/19/21 docusate sodium 100 mg capsule 1 cap PO BID PRN 06/19/21 06/19/21 gabapentin 400 mg capsule 1 cap PO TID 06/19/21 06/19/21 omeprazole 20 mg capsule,delayed 1 cap PO BID 06/19/21 06/19/21 release vits no.130-ferrous fum 1 tab PO DAILY 06/19/21 06/19/21 27 mg iron-folic acid 800 mcg tablet ( Vitamin) sertraline 100 mg tablet 2 tab PO DAILY 06/19/21 06/19/21 Allergies Allergy/AdvReac Type Severity Reaction Status Date / Time No Known Allergies Allergy Verified 06/19/21 06:23 [No Known Allergies*] Review of Systems Review of Systems: Constitutional : No Fever, No Chills ENT/Mouth : No Ear Pain, No Nasal Congestion, No sore throat Eyes: No Eye Pain, No Swelling, No Redness Cardiovascular : No Chest Pain, No SOB Respiratory : No Cough, No Sputum, No Dyspnea Gastrointestinal : No Nausea, No Vomiting, No Diarrhea, No Hematochezia, No Melena Genitourinary : No Dysuria, No Urinary Frequency, No Hematuria Musculoskeletal : No Myalgias Skin : No Skin Lesions, No rash Neuro : No Weakness, No Numbness, No Paresthesias, No Dizziness, No Headache Psych : positive Anxiety, positive Depression, positive SI no HI Heme/Lymph: No Lymphadenopathy Endocrine : No Polyuria, No Polydipsia Yes all other systems are reviewed and are negative COUNTS INCLUDE 234 BEDS AT THE [facility] Past Medical History Attestation statement: The following information was validated with the patient. Source: old records reviewed Medical History Depression GERD (gastroesophageal reflux disease) Hyperlipidemia Social History Social History Housing: Homeless Do you presently have visiting nurse or other home services: No Patient Tobacco Use Status: Never used Tobacco Tobacco use type: Cigarette Cigarette Packs Per Day: 1 Cigarettes Per Day: 20.0 e-Cigarette/Vaping Use: Never Used Second Hand Smoke Exposure: No Substance Use Type: Crack/Cocaine and Prescription Drugs Advance Directives: No Advance Directives Information Provided: Yes Healthcare Proxy: No Guardian: No service: No Sexual orientation: Straight/Heterosexual Physical Exam Vital Signs: Vital Signs: Last Vital Signs Temp 97.9 F 06/19/21 07:53 Pulse 85 06/19/21 07:53 Resp 12 06/19/21 07:53 BP 114/60 06/19/21 07:53 Pulse Ox 92 06/19/21 07:53 BMI result Body Mass Index 33.8 Vital signs have been reviewed as normal and appeared to be correct. Blood pressure normal.? Heart rate normal.? Respiration rate normal. Temperature normal.? Oxygen saturation normal. Appearance: Alert.?Oriented to person, place and time. No acute distress. Tearful and anxious Eyes: Pupils equal, round and reactive to light.? ENT: Pharynx normal.?? Neck: Normal inspection.? Neck supple.?? CVS: Heart sounds normal. Normal heart rate and rhythm.? Pulses normal.?? Respiratory: No respiratory distress.? Lung sounds clear to auscultation bilaterally?? Abdomen: Soft and non-tender. Skin: Skin warm and dry.? Normal skin color.? Extremities: No lower extremity edema.? Neuro: Moves all extremities spontaneously. Sensation intact bilaterally. CN II-XII intact. No focal neuro deficits. Ambulates with normal steady gait. Course Course Course Narrative: Patient is a 51-year-old male presenting to the emergency department for increased depression and suicidal ideations. Will complete patient's med reconciliation at this time, he reports he has not yet taken his morning medications. Patient placed in position observation at 0703 as the patient needs crisis evaluation for suicidal ideation, vital signs are stable, he is well appearing, nontoxic, alert and oriented, with no focal neurological deficits, respirations are regular and even, with clear lung sounds. Will request BHN consult. Reevaluation(s) Reevaluation #1: Patient evaluated by care team, section 12 placed as patient left emergency department voluntarily yesterday and felt that this was not beneficial for him, voluntary inpatient bed search this time. Patient in no apparent distress. Respirations even, regular, and non-labored. No focal neuro deficits. Vital signs stable. Time: 10:45 [facility] - Psych Medical Records Attestation: I reviewed the patient's medical records. Lab Data Labs: Lab Results 06/19/21 06/19/21 06/19/21 Range/Units 06:44 06:44 06:44 Urine Color YELLOW Urine Appearance CLEAR Urine pH 6.0 (5.0-8.0) Ur Specific [place] 1.020 (1.005-1.025) Urine Protein NEG (NEG-TRACE) MG/DL Urine Glucose (UA) NEG (NEG) MG/DL Urine Ketones NEG (NEG) MG/DL Urine Blood NEG (NEG) Urine Nitrite NEG (NEG) Ur Leukocyte Esterase NEG (NEG) Urine Opiates Screen Not Detected (Not Detect) Urine Fentanyl Screen Not Detected (Not Detect) Ur Barbiturates Screen Not Detected (Not Detect) Ur Phencyclidine Scrn Not Detected (Not Detect) Ur Amphetamines Screen Not Detected (Not Detect) U Benzodiazepines Scrn Not Detected (Not Detect) Urine Cocaine Screen POSITIVE H (Not Detect) U Marijuana (THC) Screen POSITIVE H (Not Detect) COVID-19 ([facility]) Negative (Negative) COVID-19 Clin Com See Note Discharge Plan Discharge Clinical Impression: Depression, Suicidal ideation Patient Disposition: Still a Patient Prescriptions: No Action clonidine HCl 0.1 mg tablet 2 tab PO BEDTIME 0RF atorvastatin 20 mg tablet 1 tab PO DAILY 0RF cetirizine 10 mg tablet 1 tab PO DAILY 0RF gabapentin 400 mg capsule 1 cap PO TID 0RF sertraline 100 mg tablet 2 tab PO DAILY 0RF docusate sodium 100 mg capsule 1 cap PO BID PRN (Reason: constipation) 0RF omeprazole 20 mg capsule,delayed release(DR/EC) 1 cap PO BID 0RF Vitamin 27 mg iron- 800 mcg tablet 1 tab PO DAILY 0RF
[2021-06-19 07:53] VITALS: BP 114/60; PULSE 85; RESP 12; TEMP 36.6; O2SAT 92
[2021-06-19] MEDS: Loratadine 10 MG TABLET PO (08:15)
[2021-06-19] MEDS: Atorvastatin Calcium 20 MG TABLET PO (08:15)
[2021-06-19] MEDS: Omeprazole 20 MG CAPSULE.DR PO ×2 (08:15→17:58)
[2021-06-19] MEDS: Sertraline HCL 100 MG TABLET 200 MG PO (08:15)
[2021-06-19] MEDS: Multivitamin TABLET 1 TAB PO (08:15)
[2021-06-19] MEDS: Gabapentin 400 MG CAPSULE PO ×3 (08:16→21:09)
--- NOTE | 2021-06-19 08:25 | PC.NURSE ---
meds given as documented. pt denies pain, vss, pt resting quietly . will continue to monitor.
--- NOTE | 2021-06-19 10:37 | PC.NURSE ---
pt seen by Care Team and is now a Voluntary Inpatient bed search. pt in room resting quietly at this time. will continue to monitor.
[2021-06-19 16:27] LABS: MANUAL DIFF FLAG NO
[2021-06-19 16:40] VITALS: BP 114/61; PULSE 56; TEMP 36.8; O2SAT 99
[2021-06-19 16:43] LABS: Basophils Percent Auto 0.6 % (0-2); Eosinophils Absolute Auto 0.2 X10*3/uL (0.0-0.4); Eosinophils Percent Auto 2.3 % (0-4); Hematocrit 39.5 % (42.0-52.0); Hemoglobin 13.5 g/dl (14.0-18.0); Imm Gran Abs Auto 0.02 X10*3/uL (0.00-0.03); Imm Gran Pct Auto 0.3 % (0.0-0.4); Lymphocytes Absolute Auto 1.5 X10*3/uL (1.2-4.9); Lymphocytes Percent Auto 22.4 % (20-40); Mean Corpuscular HGB Conc 34.2 g/dl (31.0-36.0); Mean Corpuscular Hemoglobin 29.9 pg (27.0-33.0); Mean Corpuscular Volume 87.4 fL (80.0-98.0); Mean Platelet Volume 11.4 fL (9.4-12.4); Monocytes Absolute Auto 0.6 X10*3/uL (0.1-1.2); Monocytes Percent Auto 8.8 % (2-11); Neutrophils Absolute Auto 4.2 x10*3/uL (2.0-8.3); Neutrophils Percent Auto 65.6 % (45-73); Platelet Count 199 X10*3/uL (160-400); Red Blood Count 4.52 X10*6/uL (4.60-5.80); Red Cell Distribution Width 12.6 % (11.0-16.0); White Blood Count 6.5 X10*3/uL (4.8-10.8)
[2021-06-19] MEDS: LORazepam 1 MG TABLET 2 MG PO (18:48)
--- NOTE | 2021-06-19 18:53 | PC.NURSE ---
pt got upset because of the meal he received for dinner. pt requesting another meal, pt given an alternate meal option and accepted. he was offered and accepted po med for anxiety. pt currently quiet in room.
[2021-06-19 20:35] VITALS: BP 131/79; PULSE 73; TEMP 36.5
[2021-06-19] MEDS: cloNIDine HCL 0.2 MG TABLET PO (21:09)
--- NOTE | 2021-06-19 22:28 | PC.NURSE ---
Pt declines nicotine replacement therapy at this time.
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
[2021-06-20 07:00] VITALS: BMI 33.8
[2021-06-20 08:36] LABS: Estimated Average Glucose 123 mg/dL; Hemoglobin A1c % 5.9 %
[2021-06-20 09:04] LABS: Cholesterol 120 mg/dL; HDL Cholesterol 41 mg/dL; LDL Cholesterol Calculated 67 mg/dl; Magnesium 2.1 mg/dL (1.6-2.6); Triglycerides 64 mg/dL
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
[2021-06-20 09:26] LABS: Free T4 (Free Thyroxine) 0.84 ng/dL (0.71-1.85); Thyroid Stimulating Hormone 0.34 uIU/mL (0.32-4.0)
[2021-06-20 10:42] LABS: Folate 14.9 ng/mL (> or = 4.0); Vitamin B12 332 pg/mL (200-900)
--- NOTE | 2021-06-20 13:20 | PC.NURSE ---
June 20, 2021: Pt signed 3-day notice which is up June 25
[2021-06-20 16:00] VITALS: BP 135/78; PULSE 67; TEMP 36.4
[2021-06-20] MEDS: Omeprazole 20 MG CAPSULE.DR PO (17:10)
[2021-06-20] MEDS: hydrOXYzine HCL 25 MG TABLET PO (17:36)
[2021-06-20] MEDS: Gabapentin 400 MG CAPSULE PO (21:37)
[2021-06-21 06:00] VITALS: BP 119/66; PULSE 68; RESP 16; TEMP 36.7; O2SAT 99
[2021-06-21] MEDS: Omeprazole 20 MG CAPSULE.DR PO (06:52)
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
[2021-06-21] MEDS: Gabapentin 400 MG CAPSULE PO ×2 (09:42→15:15)
[2021-06-21] MEDS: Multivitamin TABLET 1 TAB PO (09:42)
[2021-06-21] MEDS: Loratadine 10 MG TABLET PO (09:42)
[2021-06-21] MEDS: Atorvastatin Calcium 20 MG TABLET PO (09:42)
[2021-06-21] MEDS: Sertraline HCL 100 MG TABLET PO (09:44)
[2021-06-21] MEDS: hydrOXYzine HCL 25 MG TABLET PO ×2 (12:21→18:38)
[2021-06-21 21:57] VITALS: BP 127/82; PULSE 57; TEMP 36.6
[2021-06-22] MEDS: Omeprazole 20 MG CAPSULE.DR PO (06:03)
--- NOTE | 2021-06-22 13:46 | P.PNPSI_ITS ---
Subjective Subjective Date of Service: 06/22/21 Reason For Visit: Depression,SI Subjective Notes: Conditional Voluntary and 3 Day Healthcare Proxy: No Guardianship: No Interim History: Patient can be reactive irritable focused more on complaints of his meals. Social with peers intermittently irritable with staff. Mood otherwise stable denies feeling overly depressed somewhat dismissive regarding need for inpatient treatment stating he had come to the ER asking for help he is feeling much better. Dismissive regarding substance use Medication Compliance: Yes Attending Groups: Intermittent Review of Systems Medical Review of Systems: unchanged Mental Status Exam Mental Status Exam Narrative: The patient is alert and oriented. His speech is clear goal-directed. His mood is described as stable okay not overly depressed has affect can be irritable and reactive. No hallucinations delusional material denies any thoughts of self- harm states he overtaken a few pills but does not feel he would do that again. He is asking for outpatient help and asking for discharge still stating he finds his environment to triggering in controlling. No hallucinations or delusional material insight judgment somewhat limited impulse control intact no physical aggression Diagnostics Vital Signs (24Hr): Vital Signs - 24 hr 06/21/21 21:57 Temperature 97.8 F Pulse Rate 57 Blood Pressure 127/82 BMI result Body Mass Index 33.8 Labs Results: 06/19/21 16:21 Medications Medications Current Medications Acetaminophen (Acetaminophen 325 Mg Tablet) 650 mg PO Q6H PRN PRN Reason: Headache/Pain Mild Scale (1-3) Al Hydroxide/Mg Hydroxide (Magnesium Hydrox/Alum Hydrox 30 Ml Oral.Susp) 30 ml PO Q6H PRN PRN Reason: Heartburn/Nausea Atorvastatin Calcium (Atorvastatin Calcium 20 Mg Tablet) 20 mg PO DAILY [facility] Last Admin: 06/21/21 09:42 Dose: 20 mg Documented by: Clonidine HCl (Clonidine Hcl 0.2 Mg Tablet) 0.2 mg PO BEDTIME PRN; Protocol PRN Reason: insomnia, hyperarousal Last Admin: 06/19/21 21:09 Dose: 0.2 mg Documented by: Docusate Sodium (Docusate Sodium 100 Mg Capsule) 100 mg PO BID PRN PRN Reason: constipation Gabapentin (Gabapentin 400 Mg Capsule) 400 mg PO TID [facility] Last Admin: 06/21/21 21:57 Dose: Not Given Documented by: Hydroxyzine HCl (Hydroxyzine Hcl 25 Mg Tablet) 25 mg PO Q6H PRN PRN Reason: Anxiety Last Admin: 06/21/21 18:38 Dose: 25 mg Documented by: Loratadine (Loratadine 10 Mg Tablet) 10 mg PO DAILY [facility] Last Admin: 06/21/21 09:42 Dose: 10 mg Documented by: Magnesium Hydroxide (Milk Of Magnesia 30 Ml Oral.Susp) 30 ml PO DAILY PRN PRN Reason: Constipation Multivitamins/Vitamin C (Multivitamin Tablet) 1 tab PO DAILY [facility] Last Admin: 06/21/21 09:42 Dose: 1 tab Documented by: Omeprazole (Omeprazole 20 Mg Capsule.) 20 mg PO BID@0630,1630 [facility] Last Admin: 06/22/21 06:03 Dose: 20 mg Documented by: Prazosin HCl (Prazosin Hcl 1 Mg Capsule) 1 mg PO BEDTIME [facility]; Protocol Last Admin: 06/21/21 21:57 Dose: Not Given Documented by: Sertraline HCl (Sertraline Hcl 100 Mg Tablet) 200 mg PO DAILY [facility] Trazodone HCl (Trazodone Hcl 50 Mg Tablet) 50 mg PO BEDTIME PRN PRN Reason: Insomnia Allergies Allergies Allergy/AdvReac Type Severity Reaction Status Date / Time No Known Allergies Allergy Verified 06/19/21 06:23 [No Known Allergies*] Assessment & Plan Assessment & Plan (1) Adjustment disorder with mixed disturbance of emotions and conduct: Status: Acute Code(s): F43.25 - Adjustment disorder with mixed disturbance of emotions and conduct (2) Chronic post-traumatic stress disorder (PTSD): Status: Acute Code(s): F43.12 - Post-traumatic stress disorder, chronic (3) Opioid abuse: Status: Acute Code(s): F11.10 - Opioid abuse, uncomplicated (4) Cocaine abuse: Status: Acute Code(s): F14.10 - Cocaine abuse, uncomplicated Plan Patient is a poor historian and said he did not want to talk. Patient is a 51-year-old male with history of depression, PTSD and SI with past inpatient admissions and crisis assessments who presents for increased depression and intentional overdose on gabapentin and clonidine(?) Following marital strife. Patient is lying in bed, awake. He lifts his head from under the sheet to look at commercial real estate underwriter but then pull she had back over his face and says h e does not want to talk with this commercial real estate underwriter; he shared an unpleasant conversation he had when in the emergency room regarding the poor food he was given which irritated him enough that he no longer wants to talk. He was willing to say that he had a bad moment, that he broke up with his . Two days ago he says he drink 2 beers but that is it no other alcohol. He used cocaine and heroin once when he broke up with his . Patient currently denies any SI or HI. He denies AVH. He says he does not want to be in the hospital and does not want to take his medications and asked for 3 day notice. Regarding medication commercial real estate underwriter advised not to just quit taking his medications abruptly but that commercial real estate underwriter would help him taper off however patient did not want to discuss. -currently patient is unwilling to recent events that led up to his intentional overdose or anything else for that matter. Will remain admitted for safety. Hopefully once patient gets some rest he will become more willing to discuss situation and engage in treatment. Leave home medications on for now since he has been taking them up until this admission and he may be willing to continue them once some of the irritability resolves. 06/21 pt feeling better; opened up and shared hx and treatment goals. Wants to continue w/ Zoloft saying it's helpful. Denies seriousness of oversdose saying it was just a few extra pills than normal and just to help him sleep. Want to get therapist and prescriber. Plan: Patient on CV; later asked to be on 3 day notice Q 15 minute checks for safety Continue Zoloft 200mg; has worked in past; does not want to augment at this time ADD Prazosin 1mg qhs; titrate as clinically necessary for nightmares (clonidine did not help nightmares) 06/22/2021 Patient stating he is feeling significantly better has no self-harming thoughts is agreeable to aftercare he is asking to leave the hospital that this setting is not stabilizing for him. He is focused on diagnosis of issues while on the unit social engage with peers somewhat dismissive regarding his taking an extra few pills he denied that it was a suicide attempt and stating he would come to the hospital if needed. Will observe 1 more day discharge tomorrow if remains stable not engaged in treatment on in the inpatient setting Greater than 50% of time was spent on coordination of care /counseling. Total t crystal 30 minutes Patient educated on: diagnosis and therapeutic strategies Informed Consent: further education needed Reason for contiued inpatient stay Substantial Risk for: harm to self and rapid decompensation
[2021-06-22 18:00] VITALS: BP 137/90; PULSE 83; RESP 12; TEMP 36.6
[2021-06-22] MEDS: Prazosin HCL 1 MG CAPSULE PO (19:24)
[2021-06-22] MEDS: Gabapentin 400 MG CAPSULE PO (19:24)
[2021-06-23] MEDS: Omeprazole 20 MG CAPSULE.DR PO (05:11)
[2021-06-23 06:10] VITALS: BP 115/64; PULSE 66; RESP 14; TEMP 36.6; O2SAT 99
[2021-06-23] MEDS: hydrOXYzine HCL 25 MG TABLET PO (12:42)
--- NOTE | 2021-08-06 09:59 | P.DS_ITS ---
DS: Providers Provider Date of Service: 06/23/21 Date of admission: 06/19/21 18:22 Date of discharge: 06/23/21 Primary care physician: [facility] Attending physician on admission: Gregorio Case Attending physician on discharge: Caden Ventura DS: Diagnosis Discharge Diagnosis (1) Adjustment disorder with mixed disturbance of emotions and conduct: (2) Chronic post-traumatic stress disorder (PTSD): Status: Acute (3) Opioid abuse: Status: Acute (4) Cocaine abuse: Status: Acute DS: Medications Discharge Medications Home Medications: Home Medications Medication Instructions Recorded Confirmed atorvastatin 20 mg tablet 1 tab PO DAILY 06/19/21 06/19/21 cetirizine 10 mg tablet 1 tab PO DAILY 06/19/21 06/19/21 clonidine HCl 0.1 mg tablet 2 tab PO BEDTIME 06/19/21 06/19/21 docusate sodium 100 mg capsule 1 cap PO BID PRN 06/19/21 06/19/21 gabapentin 400 mg capsule 1 cap PO TID 06/19/21 06/19/21 omeprazole 20 mg capsule,delayed 1 cap PO BID 06/19/21 06/19/21 release vits no.130-ferrous fum 1 tab PO DAILY 06/19/21 06/19/21 27 mg iron-folic acid 800 mcg tablet ( Vitamin) sertraline 100 mg tablet 2 tab PO DAILY 06/19/21 06/19/21 Previous Rx's Medication Instructions Recorded nicotine (polacrilex) 4 mg buccal 4 mg BUCCAL Q2-4H PRN #81 ea 06/23/21 mini lozenge (Nicorette) naloxone 4 mg/actuation nasal 4 mg INTRANASAL Q2M PRN #1 ea 06/25/21 spray (Narcan) Mental Status Exam Mental Status Exam Narrative: The patient is alert and oriented.? His speech is clear goal-directed.? His mood is described as stable okay not overly depressed has affect can be irritable and reactive.? No hallucinations delusional material denies any thoughts of self- harm states he overtaken a few pills but does not feel he would do that again.? He is asking for outpatient help and asking for discharge still stating he finds his environment to triggering in controlling.? No hallucinations or delusional material insight judgment somewhat limited impulse control intact no physical aggression DS: Summary Hospital Course Hospital Course: On admission Patient is a poor historian and said he did not want to talk. Patient is a 51-year-old male with history of depression, PTSD and SI with past inpatient admissions and crisis assessments who presents for increased depression and intentional overdose on gabapentin and clonidine(?)? Following marital strife.? Patient is lying in bed, awake.? He lifts his head from under the sheet to look at ghost writer but then pull she had back over his face and? says he does not want to talk with this ghost writer; he shared an unpleasant conversation he had when in the emergency room regarding the poor food he was given which irritated him enough that he no longer wants to talk.? He was? willing to say that he had a bad moment, that he broke up with his .? Two days ago he says he drink 2 beers but that is it no other alcohol.? He used cocaine and heroin once when he broke up with his .? Patient currently denies any SI or HI.? He denies AVH.? He says he does not want to be in the hospital and does not want to take his medications and asked for 3 day notice. Regarding medication ghost writer advised not to just quit taking his medications abruptly but that ghost writer would help him taper off however patient did not want to discuss. After a day or so on the unit, patient became more open and communicative. He reported feeling better; opened up and shared hx and treatment goals. Wants to continue w/ Zoloft saying it's helpful. Denies seriousness of oversdose saying it was just a few extra pills than normal and just to help him sleep. Want to get therapist and prescriber. He explained that yesterday he was too angry, to introverted to talk. Pt explained hx of trauma with details, which involved mother and uncles and was severe. He also talked about detention a bit. He says he was overall stable for years on Zoloft 200mg however about 2 years ago, he lost his therapist after several years and with whom he had a good rapport; he had to get a new one which was very difficult; also it was over telephone and therapist often did not show up. Over these past 2 years he found his depression returning and ptsd symptoms worsening with increasing flashbacks and nightmares. Over past few months, he broke up w/ significant other and his son and nephew in the were called to go overseas to [facility]. He said that he really did not attempt suicide and only took about 3-4 extra pills of his regular medication; he says he did not want to , but just sleep... get a break. He denies any SI or HI. Pt says he's been using cocaine on/off for past month but wants to again be sober which he has for past 10 years. ? Pt agreed that Zoloft was helpful wants to continue; he agrees that losing therapist is most likely cause of decompensation along with other psychosocial stressors. Pt wants to get back home to his job and own apartment but agrees he should stay to get further stabilized and for therapist and prescriber to be re-established. He agrees to start Prazosin for nightmares but at this time does not want to augment Zoloft further. Over the weekend patient seen by covering provider. Dr. Ventura writes: Patient stating he is feeling significantly better has no self-harming thoughts is agreeable to aftercare he is asking to leave the hospital that this setting is not stabilizing for him.? He is focused on diagnosis of issues while on the unit social engage with peers somewhat dismissive regarding his taking an extra few pills he denied that it was a suicide attempt and stating he would come to the hospital if needed. The following day patient was deemed not in imminent risk for harm to self or others and appropriate for discharge, able to continue treatment in the outpatient setting. Status at Discharge Functional status at discharge: independent ambulation Overall status at discharge: patient is back to baseline Time Spent with Patient Time attestation: Total time spent providing and/or coordinating discharge services: Time spent: Less than 30 minutes Discharge Plan Discharge Patient Disposition: Home, Self-Care Discharge Diagnosis: Posttraumatic stress disorder cocaine abuse opiate abuse Referrals: [facility] [Primary Care Provider] - 1 Week Discharge Medications: New nicotine (polacrilex) [Nicorette] 4 mg mini lozenge 4 mg buccal Q2-4H PRN (Reason: nicotine cravings) Qty: 81 0RF naloxone [Narcan] 4 mg/actuation spray,non-aerosol 4 mg intranasal Q2M PRN (Reason: opioid overdose) Qty: 1 0RF Rx Instructions: spray 1 dose into ONE nostril; alternate nostrils w each dose until help arrives Continued clonidine HCl 0.1 mg tablet 2 tab PO BEDTIME 0RF atorvastatin 20 mg tablet 1 tab PO DAILY 0RF cetirizine 10 mg tablet 1 tab PO DAILY 0RF gabapentin 400 mg capsule 1 cap PO TID 0RF sertraline 100 mg tablet 2 tab PO DAILY 0RF docusate sodium 100 mg capsule 1 cap PO BID PRN (Reason: constipation) 0RF omeprazole 20 mg capsule,delayed release(DR/EC) 1 cap PO BID 0RF Vitamin 27 mg iron- 800 mcg tablet 1 tab PO DAILY 0RF Discharge Orders: Discharge Order (Routine); Ordered 06/23/21 Ordered By: Caden Ventura Diet: advance to usual diet Activity on Discharge: As tolerated Stand Alone Forms: Patient Portal Discharge page, Community Support Care Plan Goals: Stable mood No self-harm Better stress tolerance Sobriety /no self-harming behavior Health Concerns: PTSD Recent self-harming behavior Substance abuse I have recommended you stay till tomorrow UR insistent on leaving today and states you are feeling safe Plan of Treatment: Our care team has made a referral to [facility] you should be getting a call for from them for an appointment If you feel unsafe please call the crisis team [phone] or go to the emergency room Recommend his medication is with ongoing psychiatric care Recommend sobriety would suggest AA OR NA meetings Assessment: PATIENT IS BEEN SOCIAL ON THE UNIT FUTURE ORIENTED DENIES SELF-HARMING THOUGHTS Discharge Date/Time: 06/23/21 14:37
== END 2021-06-23 14:37 | disposition home or self-care (01) | DRG 755 ==
LOC: HO.ED 16:36 → HO.PM5 18:38
PROVIDERS: Admitting Provider Registered Nurse; Emergency Provider Emergency Medicine; Visit Provider Psychiatry & Neurology Psychiatry
DX: F43.25 Adjustment disorder with mixed disturbance of emotions and conduct (principal); R45.851 Suicidal ideations; E78.5 Hyperlipidemia, unspecified; F17.210 Nicotine dependence, cigarettes, uncomplicated; K21.9 Gastro-esophageal reflux disease without esophagitis; F43.10 Post-traumatic stress disorder, unspecified; F14.10 Cocaine abuse, uncomplicated; F11.10 Opioid abuse, uncomplicated; Z20.822 Contact with and (suspected) exposure to COVID-19; Z71.6 Tobacco abuse counseling; Z79.899 Other long term (current) drug therapy
CPT/HCPCS: 36415; 80061; 80307; 81003; 82607; 82746; 83036; 83735; 84439; 84443; 85025; 87635; 93005; 99285

== ENCOUNTER 2021-11-28 11:40 | Emergency (ER) | payer MEDICAID, SELFPAY ==
--- NOTE | 2021-11-28 | ECG_ITS ---
Test Reason : cp Blood Pressure : / mmHG Vent. Rate : 050 BPM Atrial Rate : 050 BPM P-R Int : 208 ms QRS Dur : 090 ms QT Int : 428 ms P-R-T Axes : 036 026 025 degrees QTc Int : 390 ms Sinus bradycardia Otherwise normal ECG When compared with ECG of 19-JUN-2021 16:07, No significant change was found Referred By: Mara Pelayo Electronically Signed By:TERRA GAGE MD
[2021-11-28 11:56] VITALS: BP 143/87; PULSE 71; RESP 18; TEMP 36; O2SAT 97; BMI 35.4
--- NOTE | 2021-11-28 12:23 | ED_ITS ---
HPI - Psych General Chief Complaint: Psychiatric Symptoms Stated Complaint: Mental Health issue Time Seen by Provider: 11/28/21 12:09 Source: patient Mode of arrival: ambulatory Limitations: no limitations History of Present Illness MD complaint: suicidal ideation, feels depressed, substance abuse and hallucinations Onset (ago): day(s) (several) Duration: constant History of same: Yes Relieving factors: none Exacerbating factors: drug use Context: recent drug abuse Associated psychiatric symptoms: depression and suicidal ideation Associated symptoms: denies other symptoms Treatments prior to arrival: none Related Data Home Medications Medication Instructions Recorded Confirmed atorvastatin 20 mg tablet 1 tab PO DAILY 06/19/21 06/19/21 cetirizine 10 mg tablet 1 tab PO DAILY 06/19/21 06/19/21 clonidine HCl 0.1 mg tablet 2 tab PO BEDTIME 06/19/21 06/19/21 docusate sodium 100 mg capsule 1 cap PO BID PRN constipation 06/19/21 06/19/21 gabapentin 400 mg capsule 1 cap PO TID 06/19/21 06/19/21 omeprazole 20 mg capsule,delayed 1 cap PO BID 06/19/21 06/19/21 release vits no.130-ferrous fum 1 tab PO DAILY 06/19/21 06/19/21 27 mg iron-folic acid 800 mcg tablet ( Vitamin) sertraline 100 mg tablet 2 tab PO DAILY 06/19/21 06/19/21 Previous Rx's Medication Instructions Recorded nicotine (polacrilex) 4 mg buccal 4 mg buccal Q2-4H PRN nicotine 06/23/21 mini lozenge (Nicorette) cravings #81 ea naloxone 4 mg/actuation nasal 4 mg intranasal Q2M PRN opioid 06/25/21 spray (Narcan) overdose #1 ea Allergies Allergy/AdvReac Type Severity Reaction Status Date / Time No Known Allergies Allergy Verified 06/19/21 06:23 [No Known Allergies*] Review of Systems Review of Systems: Constitutional : No Fever, No Chills ENT/Mouth : No Ear Pain, No Nasal Congestion, No sore throat Eyes: No Eye Pain, No Swelling, No Redness Cardiovascular : No Chest Pain, No SOB Respiratory : No Cough, No Sputum, No Dyspnea Gastrointestinal : No Nausea, No Vomiting, No Diarrhea, No Hematochezia, No Melena Genitourinary : No Dysuria, No Urinary Frequency, No Hematuria Musculoskeletal : No Myalgias Skin : No Skin Lesions, No rash Neuro : No Weakness, No Numbness, No Paresthesias, No Dizziness, No Headache Psych : positive Anxiety, positive Depression, positive SI no HI, pos AH Heme/Lymph: No Lymphadenopathy Endocrine : No Polyuria, No Polydipsia All other systems reviewed and are negative [facility] Past Medical History Attestation statement: The following information was validated with the patient. Medical History Adjustment disorder with mixed disturbance of emotions and conduct Chronic post-traumatic stress disorder (PTSD) Cocaine abuse Depression GERD (gastroesophageal reflux disease) Hyperlipidemia Opioid abuse Surgical History History of bariatric surgery Social History Social History Household Members: None Housing: Homeless Do you presently have visiting nurse or other home services: No Alcohol intake: unknown Patient Tobacco Use Status: Current everyday Tobacco user Tobacco use type: Cigarette Cigarette Packs Per Day: 1 Cigarettes Per Day: 20.0 Years Smoked: 40 e-Cigarette/Vaping Use: Never Used Second Hand Smoke Exposure: No Substance Use Type: Crack/Cocaine and Marijuana service: No Sexual orientation: Straight/Heterosexual Physical Exam Vital Signs: Vital Signs: Last Vital Signs Temp 96.8 F 11/28/21 11:56 Pulse 71 11/28/21 11:56 Resp 18 11/28/21 11:56 BP 143/87 H 11/28/21 11:56 Pulse Ox 97 11/28/21 11:56 O2 Del Method 11/28/21 11:56 BMI result Body Mass Index 35.4 Appearance: Alert. Oriented X3. No acute distress. Anxious Eyes: Pupils equal, round and reactive to light. ENT: Pharynx normal. Neck: Normal inspection. Neck supple. CVS: Normal heart rate and rhythm. Pulses normal. Respiratory: No respiratory distress. Breath sounds normal. Abdomen: Soft and non-tender. Skin: Skin warm and dry. Normal skin color. Normal skin turgor. R axillary area small red raised area noted - patchy no signs of secondary infection Extremities: No lower extremity edema. No calf ttp Neuro: Oriented X 3. No motor deficit. No sensory deficit. CN2-12 intact Course Course Course Narrative: Physician observation started at 1233pm. Patient placed in physician observation because the patient needed more time for BHN to assess the need for psych admission. At the time observation was started the patient's vitals were stable, patient is alert and oriented but slightly anxious Neuro: nonfocal, CV RRR, Lungs clear MDM - Psych MDM Narrative Medical decision making narrative: 51 yo male with hx of HLD, seasonal allergies, substance abuse admits to using cocaine/crack recently now has SI and AH telling him to hurt himself at this time labs and BHN consult ordered. Also has small heat rash noted R axillary area - clotrimazole and hydrocortisone ordered - dispo pending BHN consult Discharge Plan Discharge Clinical Impression: Cocaine abuse, Acute anxiety, Heat rash Patient Disposition: Still a Patient Prescriptions: No Action clonidine HCl 0.1 mg tablet 2 tab PO BEDTIME atorvastatin 20 mg tablet 1 tab PO DAILY cetirizine 10 mg tablet 1 tab PO DAILY gabapentin 400 mg capsule 1 cap PO TID sertraline 100 mg tablet 2 tab PO DAILY docusate sodium 100 mg capsule 1 cap PO BID PRN (Reason: constipation) omeprazole 20 mg capsule,delayed release(DR/EC) 1 cap PO BID Vitamin 27 mg iron- 800 mcg tablet 1 tab PO DAILY nicotine (polacrilex) [Nicorette] 4 mg mini lozenge 4 mg buccal Q2-4H PRN (Reason: nicotine cravings) Qty: 81 0RF naloxone [Narcan] 4 mg/actuation spray,non-aerosol 4 mg intranasal Q2M PRN (Reason: opioid overdose) Qty: 1 0RF Rx Instructions: spray 1 dose into ONE nostril; alternate nostrils w each dose until help arrives
[2021-11-28 12:48] LABS: MANUAL DIFF FLAG NO
[2021-11-28] MEDS: LORazepam 1 MG TABLET PO (12:48)
[2021-11-28 12:58] LABS: Basophils Absolute Auto 0.1 X10*3/uL (0.0-0.2); Basophils Percent Auto 0.9 % (0-2); Eosinophils Absolute Auto 0.2 X10*3/uL (0.0-0.4); Eosinophils Percent Auto 3.1 % (0-4); Hematocrit 38.1 % (42.0-52.0); Hemoglobin 13.2 g/dl (14.0-18.0); Imm Gran Abs Auto 0.02 X10*3/uL (0.00-0.03); Imm Gran Pct Auto 0.4 % (0.0-0.4); Lymphocytes Absolute Auto 1.5 X10*3/uL (1.2-4.9); Lymphocytes Percent Auto 27.1 % (20-40); Mean Corpuscular HGB Conc 34.6 g/dl (31.0-36.0); Mean Corpuscular Hemoglobin 29.6 pg (27.0-33.0); Mean Corpuscular Volume 85.4 fL (80.0-98.0); Mean Platelet Volume 11.4 fL (9.4-12.4); Monocytes Absolute Auto 0.4 X10*3/uL (0.1-1.2); Monocytes Percent Auto 7.7 % (2-11); Neutrophils Absolute Auto 3.3 x10*3/uL (2.0-8.3); Neutrophils Percent Auto 60.8 % (45-73); Platelet Count 181 X10*3/uL (160-400); Red Blood Count 4.46 X10*6/uL (4.60-5.80); Red Cell Distribution Width 12.6 % (11.0-16.0); White Blood Count 5.4 X10*3/uL (4.8-10.8)
--- NOTE | 2021-11-28 13:00 | PC.NURSE ---
Awaiting lotrimin and cortisone from pharmacy
[2021-11-28 13:07] LABS: Alanine Aminotransferase 8 U/L (0-40); Albumin Level 4.3 g/dL (3.5-5.0); Alkaline Phosphatase 81 U/L (39-117); Anion Gap 12 (12-20); Aspartate Amino Transferase 13 U/L (5-37); Bilirubin Direct < 0.2 mg/dL (0.0-0.5); Bilirubin Total 0.3 mg/dL (0.0-1.0); Blood Urea Nitrogen 19 mg/dL (9-16); Carbon Dioxide 27 mmol/L (22-29); Chloride 107 mmol/L (96-108); Creatinine Clr Calc Pharmacy 102.3; Estimated Glomerular Filt Rate > 60; Ethanol < 10 mg/dL; Glucose Random 93 mg/dL (60-115); Sodium 142 mmol/L (135-145); Total Protein 6.6 g/dL (6.5-8.0)
[2021-11-28 13:07] LABS: Amphetamine Screen Urine Not Detected (Not Detect); Barbiturates, Urine Not Detected (Not Detect); Benzodiazepines Screen Urine Not Detected (Not Detect); Cannabinoid Screen Urine POSITIVE (Not Detect); Cocaine Screen Urine POSITIVE (Not Detect); Fentanyl, urine Not Detected (Not Detect); Opiate Screen Urine Not Detected (Not Detect); Phencyclidine Screen Urine Not Detected (Not Detect)
[2021-11-28 13:08] LABS: COVID-19 Test Negative (Negative); IDNOW Serial# 16C4AD1C
--- NOTE | 2021-11-28 13:16 | PC.NURSE ---
Patient states he is a dope head and needs to go home to use his fentanyl . Patient starting to become more agitated. [employer] JUDGE Danyelle Owens notified.
[2021-11-28] MEDS: Hydrocortisone 1 % Cream 28.35 GM TUBE 1 APPL TOPICAL ×2 (13:22→22:17)
[2021-11-28] MEDS: Clotrimazole 1 % Cream 15 GM TUBE 1 APPL TOPICAL ×2 (13:22→22:16)
[2021-11-28 16:06] VITALS: BP 121/70; PULSE 54; RESP 12; TEMP 36.9; O2SAT 98
--- NOTE | 2021-11-28 23:41 | MHC.CARE ---
Pt was evaluated by N and made a voluntary bedsearch. Pt was accepted to [facility] and when CV was presented to pt by pod Rn pt became volatile and dysregulated reporting that he did not want to go upstairs. At that time this tech writer contacted Rajni Johnson and pod RN notified me that ED provider Kalina Liu will be discharging pt.
== END 2021-11-28 23:17 | disposition home or self-care (01) ==
PROVIDERS: Emergency Provider Emergency Medicine
DX: F14.10 Cocaine abuse, uncomplicated (principal); F41.9 Anxiety disorder, unspecified; F32.A Depression, unspecified; F43.12 Post-traumatic stress disorder, chronic; L74.0 Miliaria rubra; Z20.822 Contact with and (suspected) exposure to COVID-19; F43.25 Adjustment disorder with mixed disturbance of emotions and conduct; F11.10 Opioid abuse, uncomplicated; F17.210 Nicotine dependence, cigarettes, uncomplicated; E78.5 Hyperlipidemia, unspecified; Z79.02 Long term (current) use of antithrombotics/antiplatelets; Z79.899 Other long term (current) drug therapy
CPT/HCPCS: 80048; 80076; 80307; 82077; 85025; 87635; 93005; 99284; 99285

== ENCOUNTER 2023-02-18 19:59 | Emergency (ER) | payer MEDICAID, SELFPAY ==
[2023-02-18 20:08] VITALS: BP 127/71; PULSE 74; RESP 18; TEMP 37.1; O2SAT 97; BMI 34.5
--- NOTE | 2023-02-18 20:12 | ED.GENADULT ---
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 went to the left eye yesterday since then been feeling foreign body sensation in the left eye with increased redness no purulent discharge Related Data Home Medications Medication Instructions Recorded Confirmed cetirizine 10 mg tablet 1 tab PO DAILY 06/19/21 11/28/21 clonidine HCl 0.1 mg tablet 2 tab PO BEDTIME 06/19/21 11/28/21 docusate sodium 100 mg capsule 1 cap PO BID PRN constipation 06/19/21 11/28/21 gabapentin 400 mg capsule 1 cap PO TID 06/19/21 11/28/21 omeprazole 20 mg capsule,delayed 1 cap PO BID 06/19/21 11/28/21 release sertraline 100 mg tablet 2 tab PO DAILY 06/19/21 11/28/21 atorvastatin 20 mg tablet 1 tab PO DAILY 11/28/21 11/28/21 Previous Rx's Medication Instructions Recorded nicotine (polacrilex) 4 mg buccal 4 mg buccal Q2-4H PRN nicotine 06/23/21 mini lozenge (Nicorette) cravings #81 ea tobramycin 0.3 % eye drops 1 drp ophthalmic (eye) Q4H #5 mL 02/19/23 Allergies Allergy/AdvReac Type Severity Reaction Status Date / Time No Known Allergies Allergy Verified 02/18/23 20:08 [No Known Allergies*] Review of Systems Review of Systems: Yes all other systems are reviewed and are negative PMF Past Medical History Medical History Cocaine abuse Opioid abuse Chronic post-traumatic stress disorder (PTSD) Adjustment disorder with mixed disturbance of emotions and conduct Hyperlipidemia GERD (gastroesophageal reflux disease) Depression Surgical History History of bariatric surgery Social History Social History Household Members: None Housing: Homeless Do you presently have visiting nurse or other home services: No Alcohol intake: unknown Patient Tobacco Use Status: Current everyday Tobacco user Tobacco use type: Cigarette Cigarette Packs Per Day: 1 Cigarettes Per Day: 20.0 Years Smoked: 40 e-Cigarette/Vaping Use: Never Used Second Hand Smoke Exposure: No Substance Use Type: Crack/Cocaine and Marijuana Advance Directives: No Advance Directives Information Provided: Yes service: No Sexual orientation: Straight/Heterosexual Physical Exam ED Vital Signs: Vital Signs - 24 hr 02/18/23 20:08 02/18/23 22:51 02/19/23 00:03 Temperature 98.8 F Pulse Rate 74 69 70 Respiratory Rate 18 18 Blood Pressure 127/71 153/75 H 113/60 Pulse Oximetry 97 100 Oxygen Delivery Method Room Air Room Air BMI result Body Mass Index 34.5 Eyes Visual Perdue: normal visual perdue by confrontation Periorbital: periorbital findings normal Conjunctivae: conjunctival abnormal (Inflamed) left Sclerae: scleral abnormal (Pterygium) bilateral Corneas: fluorescein used and other (Pterygium , no foreign body seen) Pupils: Equal, round and reactive pupils present EOM: EOMs intact bilaterally Direct Ophthalmoscopy: no photophobia and anterior chamber normal Neuro Cranial nerves: Yes Equal, round and reactive pupils present Course Course Course Narrative: RME: 52 yold male presents to the ED for metal going into his left eye after working under car yesterday. patient states he took some metal from his eye yesterday. patient has left eye redness and irration. to be seen in [facility] Medications Administered Discontinued Medications Generic Name Dose Route Start Last Admin Trade Name Freq PRN Reason Stop Dose Admin Fluorescein Sodium 1 strip 02/19/23 00:33 02/19/23 00:58 Fluorescein Sodium Strip EYE-LEFT 02/19/23 00:34 1 strip ONCE ONE Administration Tetracaine HCl 1 drop 02/19/23 00:33 02/19/23 00:58 Tetracaine Hcl/Pf 0.5% Oph Lizet 4 Ml Drops EYE-LEFT 02/19/23 00:34 1 drop ONCE ONE Administration Tobramycin Sulfate 2 drop 02/19/23 00:43 02/19/23 00:58 Tobramycin Sulfate 0.3% Lizet Op 5 Ml Btl EYE-LEFT 02/19/23 00:44 2 drop ONCE ONE Administration Medical Decision Making Medical Decision Making MDM Narrative: No foreign body was seen in left cornea patient does have pterygium both eyes which may be causing the problem no abrasions patient will be given tobramycin eyedrops Differential Diagnosis Corneal abrasion/foreign body in the cornea Discharge Plan Discharge Clinical Impression: Acute conjunctivitis of left eye, Pterygium of both eyes Patient Disposition: Home, Self-Care Instructions: Pterygium (ED), Conjunctivitis (ED) Additional Instructions: Use eyedrops as prescribed Follow-up with eye doctor for pterygium treatment No foreign body was seen Prescriptions: New tobramycin 0.3 % drops 1 drp ophthalmic (eye) Q4H Qty: 5 0RF No Action clonidine HCl 0.1 mg tablet 2 tab PO BEDTIME cetirizine 10 mg tablet 1 tab PO DAILY gabapentin 400 mg capsule 1 cap PO TID sertraline 100 mg tablet 2 tab PO DAILY docusate sodium 100 mg capsule 1 cap PO BID PRN (Reason: constipation) omeprazole 20 mg capsule,delayed release(DR/EC) 1 cap PO BID nicotine (polacrilex) [Nicorette] 4 mg mini lozenge 4 mg buccal Q2-4H PRN (Reason: nicotine cravings) Qty: 81 0RF atorvastatin 20 mg tablet 1 tab PO DAILY Referrals: Sampson Wilson [Physician] - 2 weeks Interventions: ED Discharge Assessment Last Done: 02/19/23 01:00 Discharge Date/Time: 02/19/23 01:01
[2023-02-18 22:51] VITALS: BP 153/75; PULSE 69; RESP 18; O2SAT 100
--- NOTE | 2023-02-18 23:58 | PC.NURSE ---
VISUALY ACUITY- 20/40 AFFECTED EYE 20/30 BILATERAL/ L EYE
[2023-02-19 00:03] VITALS: BP 113/60; PULSE 70
[2023-02-19] MEDS: Fluorescein Sodium STRIP 1 STRIP EYE-LEFT (00:58)
[2023-02-19] MEDS: Tobramycin Sulfate 0.3% Sol Op 5 ML BTL 2 DROP EYE-LEFT (00:58)
[2023-02-19] MEDS: Tetracaine HCl/PF 0.5% Oph Sol 4 ML DROPS 1 DROP EYE-LEFT (00:58)
== END 2023-02-19 01:01 | disposition home or self-care (01) ==
PROVIDERS: Emergency Provider Internal Medicine
DX: H10.32 Unspecified acute conjunctivitis, left eye (principal); H11.003 Unspecified pterygium of eye, bilateral; F17.210 Nicotine dependence, cigarettes, uncomplicated; Z79.899 Other long term (current) drug therapy
CPT/HCPCS: 99283; 99284

== ENCOUNTER 2023-06-24 13:40 | Outpatient (AMB) | payer OTHER, SELFPAY ==
--- NOTE | 2023-06-24 13:42 | A.OFFPC_ITS ---
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 pt would like to talk about a rash that he has been getting for about a month. Allergies No Known Allergies [No Known Allergies*] Allergy (Verified 06/24/23 13:54) Medication List - Last Reconciled 06/24/23 by KATHY Watson atorvastatin 1 tab PO DAILY cetirizine 1 tab PO DAILY docusate sodium 1 cap PO BID PRN gabapentin 1 cap PO TID hydroxyzine HCl 75 mg PO BEDTIME PRN nicotine (polacrilex) (Nicorette) 4 mg buccal Q2-4H PRN omeprazole 1 cap PO BID oxcarbazepine 150 mg PO BID prazosin 1 mg PO BID vit [id number] 27 mg iron- 800 mcg ( Vitamin) 1 tab PO DAILY sertraline 2 tabs PO DAILY tamsulosin 0.4 mg PO DAILY tobramycin 0.3% 1 drp ophthalmic (eye) Q4H Tobacco use date assessed: 06/24/23 Dental Screening Dental Screen Date: 06/24/23 Did you have a dental visit in the last 12 months?: No Did you have a dental problem in the last 6 months where you did not have access to dental care?: No Was dental information given to patient?: Patient has dentist HPI HPI Comments History of Present Illness Details Patient is here to establish care. He has a past medical history significant for PTSD, depression, and hyperlipidemia. Patient is due for PSA, w ill order. Patient is due for colonoscopy, will order. Patient is also due for fasting labs. His recent provider was Sandra [facility], will obtain past medical records. Patient has a chief complaint of bilateral hand pain. Patient states that he has had this pain is hands for several years, has developed redness and swelling in his 1st knuckle of both hands. Denies any trauma to the area. Uses [id number]-[id number] medicine with some relief. Patient needs refill some medications. Patient has mental health provider taking care of PTSD, depression. Patient states that he is sleeping well feels like it is in control. REPLACED BY [facility] Medical History Cocaine abuse Opioid abuse Chronic post-traumatic stress disorder (PTSD) Adjustment disorder with mixed disturbance of emotions and conduct Hyperlipidemia GERD (gastroesophageal reflux disease) Depression Surgical History History of bariatric surgery Social History (Updated 06/24/23 @ 13:59 by KATHY Watson) Household Members: None Housing: Apartment Do you presently have visiting nurse or other home services: No Alcohol intake: unknown Patient Tobacco Use Status: Current everyday Tobacco user Tobacco use type: Cigarette Cigarette Packs Per Day: 1 Cigarettes Per Day: 20.0 Years Smoked: 40 e-Cigarette/Vaping Use: Never Used Second Hand Smoke Exposure: No Substance Use Type: Crack/Cocaine and Marijuana service: No Sexual orientation: Straight/Heterosexual Cognitive needs: No Hearing needs: No Vision needs: No Questionnaire PHQ-9 Over the last 2 weeks, how often have you been bothered by any of the following problems? 1. Little interest or pleasure in doing things: several days 2. Feeling down, depressed, or hopeless: several days 3. Trouble falling or staying asleep, or sleeping too much: several days 4. Feeling tired or having little energy: several days 5. Poor appetite or overeating: more than half the days 6. Feeling bad about yourself - or that you are a failure or have let yourself or your family down: more than half the days 7. Trouble concentrating on things, such as reading the newspaper or watching television: several days 8. Moving or speaking so slowly that other people could have noticed. Or the opposite - being so fidgety or restless that you have been moving around a lot more than usual: several days 9. Thoughts that you would be better off or of hurting yourself in some way: several days Total score: 11 Depression Screening Interpretation: Negative Depression Screening Done: Yes 96076 - PHQ-9 Billing: Yes Source: Developed by Drs. Guido Madsen, Tamiko Parikh, Ted Mccain and colleagues, with an educational wander from [employer]. Thrive Questionnaire Date Thrive assessed: 06/24/23 I am a: Patient What is your living situation today?: I have a steady place to live Within the past 12 months, did the food you bought not last and you didn't have the money to get more?: Sometimes True Within the past 12 months, did you worry whether your food would run out before you got money to buy more?: Sometimes True Do you have trouble paying for medicines?: No Do you have trouble getting transportation to medical appointments?: No Do you have trouble paying your heating and electricity bill?: No Do you have trouble taking care of your child, family member or friend?: No Do you have trouble with day-to-day activities such as bathing, preparing meals, shopping, managing finances, etc.?: Yes Are you currently unemployed and looking for a job?: No Are you interested in more education?: Yes THRIVE Score: 2 AUDIT C Alcohol Use Questionnaire (AUDIT-C) 1. How often do you have a drink containing alcohol?: Monthly or less 2. How many drinks containing alcohol do you have on a typical day when you are drinking?: 1 or 2 3. How often do you have six or more drinks on one occasion?: Never Total Score: 1 Score Reviewed/Action Taken: No RENATE-7 AMB Questionnaire RENATE-7 Date RENATE - 7 assessed: 06/24/23 Feeling nervous, anxious, or on edge: 2 = More than half the days Not being able to stop or control worryin = Several days Worrying too much about different things: 2 = More than half the days Trouble relaxin = Several days Being so restless that it is hard to sit still: 2 = More than half the days Becoming easily annoyed or irritable: 1 = Several days Feeling afraid as if something awful might happen: 2 = More than half the days Total RENATE-7 score (0-4 normal; 5-9 mild; 10-14 moderate; 15-21 severe): 11 Source: Developed by Drs. Guido Madsen, Tamiko Parikh, Ted Mccain and colleagues, with an educational wander from [employer]. RENATE-7 Assessment Billing RENATE-7 Assessment Tool: RENATE-7 Assessment [id number] Review of Systems Const Details: Constitutional : No Weight loss, No Fever, No Chills, No Fatigue, No Malaise ENT/Mouth : No sore throat, No Rhinorrhea Eyes: No Eye Pain, No Swelling, No Redness Cardiovascular : No Chest Pain, No SOB, No Dyspnea on Exertion, No Orthopnea, No Edema, No Palpitations Respiratory : No Cough, No Sputum, No Wheezing Gastrointestinal : No Nausea, No Vomiting, No Diarrhea, No Constipation, No abdominal Pain, No Hematochezia, No Melena Genitourinary : No Dysuria, No Urinary Frequency, No Hematuria, Musculoskeletal : No joint pain, No Myalgias, No Joint Swelling Skin : No Skin Lesions, Admits rash on flank. Neuro : No Weakness, No Numbness, No Dizziness, No Headache Psych : Admits some Anxiety/Panic, No Depression. Denies SI/HI. Heme/Lymph: No Bruising, No Bleeding,No Lymphadenopathy Endocrine : No Polyuria, No Polydipsia All other systems reviewed and are negative Physical exam (Primary Care) Vital Signs: Last Vital Signs Pulse 78 06/24/23 13:44 BP 120/80 06/24/23 13:44 Pulse Ox 98 06/24/23 13:44 Oxygen Delivery Method Room Air 06/24/23 13:44 BMI result Body Mass Index 36.8 Tobacco/Smoking Status: Tobacco use Status Tobacco use date assessed 06/24/23 06/24/23 13:51 Patient Tobacco Use Status Current everyday Tobacco 06/24/23 13:59 Tobacco use type Cigarette 06/24/23 13:59 e-Cigarette/Vaping Use Never Used 06/24/23 13:59 Depression Screening Interpretation: Negative Const Other: Appearance: Alert.? Oriented X3.? No acute distress.? Head: Normocephalic, atraumatic, Eyes: Pupils equal, round and reactive to light.? CVS: Normal heart rate and rhythm.? Pulses normal.? Respiratory: No respiratory distress.? Breath sounds normal.? Skin: Erythema, no clear borders, flat, no discharge on left flank, near waistline. Extremities: Patient has edema and erythema of the PIP joint on bilateral hands. Back: No midline tenderness, no C-spine tenderness, full range of motion, no CVA tenderness bilaterally Neuro: Oriented X 3.? No motor deficit.? No sensory deficit. CN 2-12 intact Assessment and Plan Assessment & Plan (1) Hand pain: Comment: Will order x-rays of bilateral hands. Patient given diclofenac topical cream to be taken as directed. Will also order an IRENE titer. Code(s): M79.643 - Pain in unspecified hand Qualifiers: Laterality: bilateral Qualified Code(s): M79.641 - Pain in right hand; M79.642 - Pain in left hand Plan: Will follow-up with results (2) Rash in adult: Comment: Patient has what appears to be contact dermatitis on his flank and waistline on left side. Patient has been instructed to change his detergent, and soap to non allergy in formulation. Patient will be given triamcinolone, prednisone to be taken as directed. Patient has been instructed to follow-up if the rash does not improve over the next week. Code(s): R21 - Rash and other nonspecific skin eruption Plan: Take your medications as prescribed. If you were prescribed antibiotics today, it is important that you take your medication to their entirety, do not skip any doses, do not finish them early. Follow-up with your primary care provider this week. Return to the emergency department with new or worsening symptoms. Such as fevers, chills, chest pain, shortness of breath, nausea, vomiting, dizziness, headache, vision changes, lethargy In case of emergency call 911 Plan Patient will follow-up in 3-4 months with physical exam. He will draw fasting labs within the next month. Orders: Orders Vitamin B12 Today Z13.21 - Encounter for screening for nutritional disorder UA CC w/rflx Micro + Cult Today Z13.89 - Encounter for screening for other disorder TSH reflex Free T4 Today Z13.29 - Encounter for screening for other suspected endocrine disorder XR hand RT 2V Today M79.643 - Pain in unspecified hand Comprehensive Met. Panel Today I10 - Essential (primary) hypertension Complete Blood Count Auto Diff Today Z13.0 - Encounter for screening for diseases of the blood and blood-forming organs and certain disorders involving the immune mechanism Lipid Panel Today Z13.220 - Encounter for screening for lipoid disorders PSA,Total (Free>4and<10) Today Z12.5 - Encounter for screening for malignant neoplasm of prostate Vitamin D 25-OH (D2 and D3) Today Z13.21 - Encounter for screening for nutritional disorder Vitamin B6 Today Z13.21 - Encounter for screening for nutritional disorder Hemoglobin A1c Today Z13.1 - Encounter for screening for diabetes mellitus XR hand LT 2V Today M79.643 - Pain in unspecified hand IRENE Reflex Titer and Pattern Today M79.643 - Pain in unspecified hand Referrals Gastroenterology Referral Z12.11 - Encounter for screening for malignant neoplasm of colon Medications: New pantoprazole 20 mg PO DAILY 90 tabs 0RF triamcinolone acetonide 0.1% 1 appl topical BID 15 grams 0RF prednisone 20 mg PO DAILY 5 tabs 0RF albuterol sulfate 90 mcg/actuation 1 inh inhalation QID PRN 6.7 grams 0RF shortness of breath or wheezing diclofenac sodium 1% (Arthritis Pain (diclofenac)) apply to single elbow, wrist or hand; for hand includes palm/fingers/back of hand 2 grams topical QID 100 grams 0RF Changed From gabapentin 1 cap PO TID To gabapentin 400 mg PO TID 90 caps 0RF From cetirizine 1 tab PO DAILY To cetirizine 10 mg PO DAILY 90 tabs 0RF From docusate sodium 1 cap PO BID PRN constipation To docusate sodium 100 mg PO BID PRN 90 caps 0RF constipation From atorvastatin 1 tab PO DAILY To atorvastatin 20 mg PO DAILY 90 tabs 0RF Coding Level of Care Code Est Pt Level 3 (88260) Diagnoses Pain in both hands M79.641; M79.642 Laterality: bilateral Rash in adult R21 Additional Codes RENATE-7 Assessment Billing - RENATE-7 Assessment Tool: RENATE-7 Assessment [id number] ([id number])
[2023-06-24 13:44] VITALS: BP 120/80; PULSE 78; O2SAT 98; BMI 36.8
== END 2023-06-24 15:39 | disposition home or self-care (01) ==
PROVIDERS: Visit Provider Nurse Practitioner Primary Care
DX: M79.641 Pain in right hand (principal); M79.642 Pain in left hand; R21 Rash and other nonspecific skin eruption
CPT/HCPCS: 99214

== ENCOUNTER 2023-06-25 08:21 | Outpatient (REF) | payer OTHER, SELFPAY ==
--- NOTE | ~2023-06-25 | XR_ITS ---
EXAMINATION: XR HAND, LEFT CLINICAL INFORMATION: Pain COMPARISON: None available. TECHNIQUE: PA, lateral, and oblique views of the left hand. FINDINGS: There is minimal narrowing cough proximal interphalangeal joint of fifth finger with marginal spurring. There is minimal narrowing of proximal interphalangeal joint of fourth finger and narrowing of the metacarpophalangeal joint of fourth finger. 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
--- NOTE | ~2023-06-25 | XR_ITS ---
EXAMINATION: XR HAND, RIGHT CLINICAL INFORMATION: Pain COMPARISON: None available. TECHNIQUE: PA, lateral, and oblique views of the right hand. FINDINGS: There is narrowing of the first metacarpophalangeal joint without erosive changes. There is mild soft tissue swelling adjacent to the joint. There is no evidence of fractures or subluxations. XR/XR hand RT 2V IMPRESSION: Degenerative changes of the first metacarpophalangeal joint
[2023-06-25 10:36] LABS: MANUAL DIFF FLAG NO
[2023-06-25 10:39] LABS: Basophils Absolute Auto 0.1 X10*3/uL (0.0-0.2); Basophils Percent Auto 0.8 % (0-2); Eosinophils Absolute Auto 0.1 X10*3/uL (0.0-0.4); Eosinophils Percent Auto 1.7 % (0-4); Hematocrit 40.1 % (42.0-52.0); Imm Gran Abs Auto 0.02 X10*3/uL (0.00-0.03); Imm Gran Pct Auto 0.3 % (0.0-0.4); Lymphocytes Percent Auto 30.1 % (20-40); Mean Corpuscular HGB Conc 34.9 g/dl (31.0-36.0); Mean Corpuscular Volume 85.9 fL (80.0-98.0); Mean Platelet Volume 10.7 fL (9.4-12.4); Monocytes Absolute Auto 0.5 X10*3/uL (0.1-1.2); Monocytes Percent Auto 7.2 % (2-11); Neutrophils Absolute Auto 3.9 x10*3/uL (2.0-8.3); Neutrophils Percent Auto 59.9 % (45-73); Platelet Count 207 X10*3/uL (160-400); Red Blood Count 4.67 X10*6/uL (4.60-5.80); Red Cell Distribution Width 12.9 % (11.0-16.0); White Blood Count 6.5 X10*3/uL (4.8-10.8)
[2023-06-25 10:49] LABS: Estimated Average Glucose 108 mg/dL; Hemoglobin A1c % 5.4 % (<6.0)
[2023-06-25 10:53] LABS: Appearance Urine Clear; Color Urine Yellow; Glucose Urine UA Negative (Negative); Leukocyte Esterase Urine Negative (Negative); Nitrite Urine Negative (Negative); PH 6.5 (5.0-9.0); Specific Gravity - Urine 1.025 (1.005-1.025); Urine Blood Negative (Negative); Urine Ketones Negative (Negative); Urine Protein Negative (Neg-Trace)
[2023-06-25 11:07] LABS: Alanine Aminotransferase 11 U/L (0-40); Albumin Level 3.9 g/dL (3.5-5.0); Alkaline Phosphatase 57 U/L (39-117); Anion Gap 10 (12-20); Aspartate Amino Transferase 18 U/L (5-37); Bilirubin Total 0.3 mg/dL (0.0-1.0); Blood Urea Nitrogen 20 mg/dL (9-16); Calcium 8.9 mg/dL (8.4-10.2); Carbon Dioxide 28 mmol/L (22-29); Chloride 109 mmol/L (96-108); Cholesterol 141 mg/dL (<200); Estimated Glomerular Filt Rate > 60; Glucose Random 103 mg/dL (60-115); HDL Cholesterol 46 mg/dL (>40); LDL Cholesterol Calculated 68 mg/dL (<100); Sodium 143 mmol/L (135-145); Total Protein 6.2 g/dL (6.5-8.0); Triglycerides 137 mg/dL (<150)
[2023-06-25 11:10] LABS: PSA,Total (Free>4and<10) 0.57 ng/mL (0.00-4.00)
[2023-06-25 11:12] LABS: TSH reflex Free T4 1.09 uIU/mL (0.32-4.0)
[2023-06-25 11:15] LABS: Vitamin B12 364 pg/mL (200-900)
[2023-06-30 14:52] LABS: Vitamin B6 19.2 ng/mL (2.1-21.7)
[2023-06-30 17:38] LABS: Vitamin D 25-OH, D2 <4 ng/mL; Vitamin D 25-OH, D3 30 ng/mL; Vitamin D 25-OH, Total 30 ng/mL (30-100)
[2023-07-02 15:04] LABS: Anti Nuclear Antibody Screen NEGATIVE (NEGATIVE)
== END 2023-06-25 08:22 | disposition home or self-care (01) ==
LOC: HO.HMGCX 08:21
PROVIDERS: PCP Nurse Practitioner Primary Care; Visit Provider Nurse Practitioner Primary Care
DX: M79.642 Pain in left hand (principal); M79.641 Pain in right hand; I10 Essential (primary) hypertension; Z13.29 Encounter for screening for other suspected endocrine disorder; Z12.5 Encounter for screening for malignant neoplasm of prostate; Z13.220 Encounter for screening for lipoid disorders; Z13.0 Encounter for screening for diseases of the blood and blood-forming organs and certain disorders involving the immune mechanism; Z13.21 Encounter for screening for nutritional disorder; Z13.89 Encounter for screening for other disorder
CPT/HCPCS: 36415; 73120; 80053; 80061; 81003; 82306; 82607; 83036; 84153; 84207; 84443; 85025; 86038

== ENCOUNTER 2023-07-08 14:56 | Outpatient (AMB) | payer OTHER, SELFPAY ==
[2023-07-08 14:59] VITALS: BP 130/82; PULSE 68; TEMP 36; O2SAT 99; BMI 37.7
--- NOTE | 2023-07-08 14:59 | MHC.OFFWIV ---
Intake Vital Signs 07/08/23 14:59 Height 5 ft 3 in Weight 213 lb BMI 37.7 BP 130/82 Blood Pressure Location Rt brachial Position Sitting Pulse 68 Pulse Source Pulse Oximeter Temp 96.8 F Temp Source Temporal Artery Scan Pulse Oximetry (%) 99 Oxygen Delivery Method Room Air Intake Visit Reasons: EP LT hand injury Intake Note: Pt is here c/o left hand discomfort. Pt states he hit his finger in the shower and has been in pain for two days. Patient Tobacco Use Status: Current everyday Tobacco user Allergies No Known Allergies [No Known Allergies*] Allergy (Verified 07/08/23 15:00) HPI HPI Comments History of Present Illness Details 53 y/o male patient who presents to walk in clinic with c/o left hand/middle finger injury at home. He was cleaning his bath tub and his finger hit the tub hard. This happened 2 days ago. He has been taking OTC medicine for pain relief. Denies any numbness or tingling to fingers. Limited ROM due to pain. [facility] Medical History Cocaine abuse Opioid abuse Chronic post-traumatic stress disorder (PTSD) Adjustment disorder with mixed disturbance of emotions and conduct Hyperlipidemia GERD (gastroesophageal reflux disease) Depression Surgical History History of bariatric surgery Social History (Updated 06/24/23 @ 13:59 by KATHY Watson) Household Members: None Housing: Apartment Do you presently have visiting nurse or other home services: No Alcohol intake: unknown Patient Tobacco Use Status: Current everyday Tobacco user Tobacco use type: Cigarette Cigarette Packs Per Day: 1 Cigarettes Per Day: 20.0 Years Smoked: 40 e-Cigarette/Vaping Use: Never Used Second Hand Smoke Exposure: No Substance Use Type: Crack/Cocaine and Marijuana service: No Sexual orientation: Straight/Heterosexual Cognitive needs: No Hearing needs: No Vision needs: No Review of Systems Const All systems reviewed & are unremarkable except as noted in HPI and below Physical Exam Vital Signs: Last Vital Signs Temp 96.8 F 07/08/23 14:59 Pulse 68 07/08/23 14:59 BP 130/82 07/08/23 14:59 Pulse Ox 99 07/08/23 14:59 Oxygen Delivery Method Room Air 07/08/23 14:59 BMI result Body Mass Index 37.7 Const General: comfortable and no acute distress Orientation/consciousness: patient oriented x3 Neuro General: patient oriented x3, gait normal and moves all extremities Extrem Right upper extremity: normal to inspection and full ROM Left upper extremity: wrist and hand Details: normal capillary refill, neuromotor exam normal, tenderness Location: of the dorsal hand Location: over the 3rd metacarpal and of the 3rd digit and swelling Psych Affect: normal affect Assessment & Plan Assessment & Plan (1) Hand pain, left: Code(s): M79.642 - Pain in left hand Plan: - Wrap hand/wrist with Coban bandage. - Acetaminophen for pain relief. - Ice Hot - Elevate the limb - Xray hand/wrist Medications: New acetaminophen 1,000 mg (2 x 500 mg) PO Q6H PRN 30 caps 0RF pain M79.642 - Pain in left hand Coding Level of Care Code Est Pt Level 3 (22278) Diagnoses Hand pain, left M79.642 Time Spent (min) 15
== END 2023-07-08 17:19 | disposition home or self-care (01) ==
PROVIDERS: PCP Nurse Practitioner Primary Care; Visit Provider Nurse Practitioner Family
DX: M79.642 Pain in left hand (principal)
CPT/HCPCS: 99213

== ENCOUNTER 2023-07-08 15:31 | Outpatient (REF) | payer OTHER, SELFPAY ==
--- NOTE | ~2023-07-08 | XR_ITS ---
EXAMINATION: XR HAND, LEFT CLINICAL INFORMATION: Left middle finger injury COMPARISON: None available. TECHNIQUE: PA, lateral, and oblique views of the left hand. FINDINGS: Minor interphalangeal joint space narrowing second DIP, otherwise joint spaces are preserved. No fracture, dislocation or bony erosions. XR/XR hand LT min 3V IMPRESSION: Minor degenerative change index finger.
== END 2023-07-08 15:32 | disposition home or self-care (01) ==
LOC: HO.HMGCX 15:31
PROVIDERS: Visit Provider Nurse Practitioner Family
DX: M79.642 Pain in left hand (principal)
CPT/HCPCS: 73130

== ENCOUNTER 2023-07-27 14:38 | Outpatient (AMB) | payer OTHER, SELFPAY ==
--- NOTE | 2023-07-27 14:40 | MHC.OFFVIS ---
Intake Vital Signs 07/27/23 14:44 Height 5 ft 3 in Weight 216 lb 0.848 oz BMI 38.3 BP 147/88 H Blood Pressure Location Lt brachial Position Sitting Pulse 88 Pulse Source Pulse Oximeter Pulse Oximetry (%) 99 Oxygen Delivery Method Room Air Intake Visit Reasons: screen colonoscopy Information Interpreted: non-clinical & clinical Accompanied by: Allergies No Known Allergies [No Known Allergies*] Allergy (Verified 07/08/23 15:00) HPI screen colonoscopy HPI Details 53 year old male here today for pre colonoscopy screening.? Patient was sent to us by her PCP.? This is his first colonoscopy screening.? ? Denies any personal or family history of gastrointestinal disease, colon polyps, or cancer.? History of gastric surgery in 2019, recently reports epigastric discomfort postprandially. Patient reports that he feels like food gets stuck in the middle of his chest. Sometimes acid reflux severe at night time. Patient is trying to sleep on 2 or 3 pillows to help with his symptoms. Patient reports to be constipated. Trouble moving his bowels and when he does he reports that he needs to push. History of drug use in the past, however he reports that he has been clean for few years. Denies history of difficulty with sedation or anesthesia in the past.? Negative for history of sleep apnea.? Denies any history of cardiac, renal, pulmonary, or hepatic disease.?? No history of infectious ?diseases like hepatitis A, B, C, HIV or tuberculosis.? Patient is not on any anticoagulation therapy. [facility] Medical History Cocaine abuse Opioid abuse Chronic post-traumatic stress disorder (PTSD) Adjustment disorder with mixed disturbance of emotions and conduct Hyperlipidemia GERD (gastroesophageal reflux disease) Depression Surgical History History of bariatric surgery Social History Household Members: None Housing: Apartment Do you presently have visiting nurse or other home services: No Alcohol intake: unknown Patient Tobacco Use Status: Current everyday Tobacco user Tobacco use type: Cigarette Cigarette Packs Per Day: 1 Cigarettes Per Day: 20.0 Years Smoked: 40 e-Cigarette/Vaping Use: Never Used Second Hand Smoke Exposure: No Substance Use Type: Crack/Cocaine and Marijuana service: No Sexual orientation: Straight/Heterosexual Cognitive needs: No Hearing needs: No Vision needs: No Physical Exam Vital Signs: Last Vital Signs Pulse 88 07/27/23 14:44 BP 147/88 H 07/27/23 14:44 Pulse Ox 99 07/27/23 14:44 Oxygen Delivery Method Room Air 07/27/23 14:44 BMI result Body Mass Index 38.3 Assessment & Plan Assessment & Plan (1) Screen for colon cancer: Code(s): Z12.11 - Encounter for screening for malignant neoplasm of colon (2) GERD (gastroesophageal reflux disease): Code(s): K21.9 - Gastro-esophageal reflux disease without esophagitis Qualifiers: Esophagitis presence: esophagitis presence not specified Qualified Code(s): K21.9 - Gastro-esophageal reflux disease without esophagitis (3) Constipation: Code(s): K59.00 - Constipation, unspecified Qualifiers: Constipation type: slow transit constipation Qualified Code(s): K59.01 - Slow transit constipation Plan Patient will start taking Dulcolax tablets daily to see if he will have better bowel movements. Patient was also encouraged to increase fluid intake and activity to promote better bowel motility. He can start taking famotidine at night him. Will increase his pantoprazole to 40 mg daily. Patient was encouraged to avoid dietary triggers and late night snacking. Staying upright for minimum 3 hours after meals discussed with patient. Patient can sleep on wedge pillow to prevent acid reflux. I will see patient in 6 weeks to re-evaluate. Patient will schedule procedure today with surgical schedulers. Both patient and his are agreeable to plan of care and verbalizes understanding of instructions. They were given the opportunity to ask questions and all questions answered. Thank you for allowing me to participate in his care Medications: New bisacodyl (Dulcolax (bisacodyl)) 10 mg (2 x 5 mg) PO BEDTIME 180 tabs 4RF pantoprazole take one tablet half an hour before breakfast 40 mg PO DAILY 30 tabs 2RF K21.9 - Gastro-esophageal reflux disease without esophagitis famotidine 40 mg PO BEDTIME 30 tabs 3RF K21.9 - Gastro-esophageal reflux disease without esophagitis Discontinued pantoprazole Discontinued Reason: Doctor's Order 20 mg PO DAILY 90 tabs 0RF docusate sodium Discontinued Reason: Doctor's Order 100 mg PO BID PRN 90 caps 0RF constipation Coding Level of Care Code New Pt Level 4 (91756) Diagnoses Screen for colon cancer Z12.11 Gastroesophageal reflux disease, unspecified whether esophagitis present K21.9 Esophagitis presence: esophagitis presence not specified Slow transit constipation K59.01 Constipation type: slow transit constipation Time Spent (min) 45 Comment 30 minutes spent with patient and additional 15 minutes spent reviewing his
[2023-07-27 14:44] VITALS: BP 147/88; PULSE 88; O2SAT 99; BMI 38.3
== END 2023-07-27 15:08 | disposition home or self-care (01) ==
PROVIDERS: PCP Nurse Practitioner Primary Care; Visit Provider Nurse Practitioner Family
DX: Z12.11 Encounter for screening for malignant neoplasm of colon (principal); K21.9 Gastro-esophageal reflux disease without esophagitis; K59.01 Slow transit constipation; Z01.818 Encounter for other preprocedural examination
CPT/HCPCS: 99204

== ENCOUNTER → 2023-07-27 14:38 | Outpatient (BNVA) | payer OTHER, SELFPAY | PROVIDERS: PCP Nurse Practitioner Primary Care; Visit Provider Nurse Practitioner Family | DX: K21.9 Gastro-esophageal reflux disease without esophagitis (principal); K59.01 Slow transit constipation | CPT/HCPCS: 99202 ==

== ENCOUNTER 2023-08-28 11:32 | Outpatient (AMB) | payer OTHER, SELFPAY ==
--- NOTE | 2023-08-28 11:52 | A.OFFVIS_ITS ---
Vital Signs 08/28/23 11:54 Height 5 ft 3 in Weight 216 lb BMI 38.3 BP 147/88 H Blood Pressure Location Lt brachial Position Sitting Pulse 53 Intake Visit Reasons: discuss colon prep/meds Intake Note: Pt last seen 07/27/23 presents today for follow up. On Pantoprazole 20mg Denies problems with bowel movements Fiber Technician Required: No Accompanied by: Significant Other Allergies No Known Allergies [No Known Allergies*] Allergy (Verified 08/28/23 11:58) HPI HPI discuss colon prep/meds: Details: LAST VISIT HPI 53 year old male here today for pre colo noscopy screening.? Patient was sent to us by her PCP.? This is his first colonoscopy screening.? ? Denies any personal or family history of gastrointestinal disease, colon polyps, or cancer.? History of gastric surgery in 2019, recently reports epigastric discomfort postprandially. Patient reports that he feels like food gets stuck in the middle of his chest. Sometimes acid reflux severe at night time. Patient is trying to sleep on 2 or 3 pillows to help with his symptoms. Patient reports to be constipated. Trouble moving his bowels and when he does he reports that he needs to push. History of drug use in the past, however he reports that he has been clean for few years. Denies history of difficulty with sedation or anesthesia in the past.? Negative for history of sleep apnea.? Denies any history of cardiac, renal, pulmonary, or hepatic disease.?? No history of infectious ?diseases like hepatitis A, B, C, HIV or tuberculosis.? Patient is not on any anticoagulation therapy. ASSESSMENT AND PLAN Screen for colon cancer GERD (gastroesophageal reflux disease) Constipation Plan Patient will start taking Dulcolax tablets daily to see if he will have better bowel movements. Patient was also encouraged to increase fluid intake and activity to promote better bowel motility. He can start taking famotidine at night him. Will increase his pantoprazole to 40 mg daily. Patient was encouraged to avoid dietary triggers and late night snacking. Staying upright for minimum 3 hours after meals discussed with patient. Patient can sleep on wedge pillow to prevent acid reflux. I will see patient in 6 weeks to re-evaluate. Patient will schedule procedure today with surgical schedulers. Both patient and his are agreeable to plan of care and verbalizes understanding of instructions. They were given the opportunity to ask questions and all questions answered. ? Thank you for allowing me to participate in his care Medications New bisacodyl (Dulcolax (bisacodyl)) 10 mg (2 x 5 mg) PO BEDTIME 180 tabs 4RF pantoprazole take one tablet half an hour before breakfast 40 mg PO DAILY 30 tabs 2RF K21.9 famotidine 40 mg PO BEDTIME 30 tabs 3RF K21.9 Discontinued pantoprazole Discontinued Reason: Doctor's Order 20 mg PO DAILY 90 tabs 0RF docusate sodium Discontinued Reason: Doctor's Order 100 mg PO BID PRN 90 caps 0RF constipation TODAY'S VISIT: Patient is here today for follow-up and to discuss his prep. Patient is feeling better now is moving his bowels well. Patient is taking Dulcolax 2 tablets every evening. Currently is taking pantoprazole 40 mg in the morning and famotidine 40 mg at bedtime. Patient reports that his symptoms of acid reflux suppressed. Patient denies dyspepsia, dysphagia or odynophagia as mentioned above and discussed with patient last visit patient has no issues with anesthesia in the past. Not on any anticoagulation medication and no history of sleep apnea. [facility] Medical History Cocaine abuse Opioid abuse Chronic post-traumatic stress disorder (PTSD) Adjustment disorder with mixed disturbance of emotions and conduct Hyperlipidemia GERD (gastroesophageal reflux disease) Depression Surgical History History of bariatric surgery Social History Household Members: None Housing: Apartment Do you presently have visiting nurse or other home services: No Alcohol intake: unknown Patient Tobacco Use Status: Current everyday Tobacco user Tobacco use type: Cigarette Cigarette Packs Per Day: 1 Cigarettes Per Day: 20.0 Years Smoked: 40 e-Cigarette/Vaping Use: Never Used Second Hand Smoke Exposure: No Substance Use Type: Crack/Cocaine and Marijuana service: No Sexual orientation: Straight/Heterosexual Cognitive needs: No Hearing needs: No Vision needs: No Review of Systems Const Denies weight gain and Denies weight loss ENT Reports no additional complaints, Denies dysphagia and Denies odynophagia Card Reports no additional complaints Resp Reports no additional complaints GI Denies abdominal pain, Denies belching, Denies melena, Denies bloating, Denies change in bowel habits, Denies dysphagia, Denies excessive flatus, Denies dyspepsia, Denies heartburn, Denies diarrhea, Denies loose stools, Denies nausea, Denies odynophagia and Denies vomiting Reports no additional complaints Musc Reports no additional complaints Neuro Reports no additional complaints Psych Reports no additional complaints Endo Reports no additional complaints Physical Exam Vital Signs: Last Vital Signs Pulse 53 08/28/23 11:54 BP 147/88 H 08/28/23 11:54 BMI result Body Mass Index 38.3 Const General: healthy appearing, no acute distress and well developed Nutritional Appearance: well nourished Orientation/consciousness: patient oriented x3 Resp Effort & Inspection: normal respiratory effort, able to speak in complete sentences, no tracheal deviation and symmetric chest movement Auscultation: clear to auscultation bilaterally Cardio Rate: regular rate GI Inspection: Yes normal to inspection and No distended Palpation (GI): Soft to palpation, not firm, nontender and No hepatosplenomegaly present Auscultation: normal bowel sounds General: Yes no CVA tenderness Back/Spine/Pelvis Back: no CVA tenderness Skin General skin exam: elasticity normal, turgor normal and dry skin Neuro General: patient oriented x3 Psych Appearance: grossly normal Mental Status: mental status grossly normal Assessment & Plan Assessment & Plan (1) Screen for colon cancer: Code(s): Z12.11 - Encounter for screening for malignant neoplasm of colon (2) GERD (gastroesophageal reflux disease): Code(s): K21.9 - Gastro-esophageal reflux disease without esophagitis Qualifiers: Esophagitis presence: esophagitis presence not specified Qualified Code(s): K21.9 - Gastro-esophageal reflux disease without esophagitis (3) Constipation: Code(s): K59.00 - Constipation, unspecified Qualifiers: Constipation type: chronic idiopathic constipation Qualified Code(s): K59.04 - Chronic idiopathic constipation Plan Patient will continue Dulcolax. Discuss prep with him before procedure. For Dulcolax tablets at noon follow with split MiraLax prep. Clear liquid diet day before procedure discussed with patient. Patient will be sent also for upper endoscopy to rule out gastritis, esophagitis, gastric or peptic ulcers, Eli's, H pylori. Patient was encouraged to eat small meals and follow-up with his bariatric surgeon after the procedure. Patient is agreeable to this plan and verbalizes understanding of instructions. He was given the opportunity to ask questions and all questions answered. Thank you for allowing me to participate in his care Medications: New polyethylene glycol 3350 (Miralax) As directed by gastroenterology department at [facility] 238 grams PO ONCE 238 grams 0RF Z12.11 - Encounter for screening for malignant neoplasm of colon Coding Level of Care Code Est Pt Level 3 (18367) Diagnoses Screen for colon cancer Z12.11 Gastroesophageal reflux disease, unspecified whether esophagitis present K21.9 Esophagitis presence: esophagitis presence not specified Chronic idiopathic constipation K59.04 Constipation type: chronic idiopathic constipation Time Spent (min) 30 Comment 20 minutes spent with patient and additional 10 minutes spent reviewing his records
[2023-08-28 11:54] VITALS: BP 147/88; PULSE 53; BMI 38.3
== END 2023-08-28 12:18 | disposition home or self-care (01) ==
PROVIDERS: PCP Nurse Practitioner Primary Care; Visit Provider Nurse Practitioner Family
DX: Z12.11 Encounter for screening for malignant neoplasm of colon (principal); K21.9 Gastro-esophageal reflux disease without esophagitis; K59.04 Chronic idiopathic constipation; Z01.818 Encounter for other preprocedural examination
CPT/HCPCS: 99213

== ENCOUNTER → 2023-08-28 11:32 | Outpatient (BNVA) | payer OTHER, SELFPAY | PROVIDERS: PCP Nurse Practitioner Primary Care; Visit Provider Nurse Practitioner Family | DX: Z01.818 Encounter for other preprocedural examination (principal); K21.9 Gastro-esophageal reflux disease without esophagitis; K59.04 Chronic idiopathic constipation | CPT/HCPCS: 99212 ==

== ENCOUNTER 2023-09-23 14:11 | Outpatient (AMB) | payer OTHER, SELFPAY ==
[2023-09-23 14:22] VITALS: BP 132/80; PULSE 60; O2SAT 98; BMI 38.1
--- NOTE | 2023-09-23 14:22 | A.OFFPC_ITS ---
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 Required: No Allergies No Known Allergies [No Known Allergies*] Allergy (Verified 09/23/23 14:44) Medication List - Last Reconciled 09/23/23 by KATHY Watson acetaminophen 1,000 mg (2 x 500 mg) PO Q6H PRN albuterol sulfate 90 mcg/actuation (Ventolin HFA) 1 puff inhalation QID PRN atorvastatin 20 mg PO DAILY cetirizine 10 mg PO DAILY diclofenac sodium 1% (Arthritis Pain (diclofenac)) 2 grams topical QID famotidine 40 mg PO BEDTIME hydroxyzine HCl 75 mg PO BEDTIME PRN oxcarbazepine 150 mg PO BID pantoprazole 40 mg PO DAILY 90 days polyethylene glycol 3350 (Miralax) 238 grams PO ONCE prazosin 1 mg PO BID sertraline 2 tabs PO DAILY tamsulosin 0.4 mg PO DAILY triamcinolone acetonide 0.1% 1 appl topical BID Tobacco use date assessed: 06/24/23 Dental Screening Dental Screen Date: 06/24/23 HPI HPI Comments History of Present Illness Details Patient is a 53-year-old male in today for follow-up Patient had complained 3 months prior with bilateral hand pain intermittent. Patient had x-rays performed and was given diclofenac gel. Patient states he has had good effect with the diclofenac gel, uses it once is 2 times per week. Denies any tingling or numbness in his hands Patient does report lower back pain intermittent. Reports pain radiating down bilateral legs. Recently stopped gabapentin because he felt like it was making it worse. Patient does not have x-ray on file will order lumbar x-ray today. Will refer to physical therapy. [facility] Medical History Cocaine abuse Opioid abuse Chronic post-traumatic stress disorder (PTSD) Adjustment disorder with mixed disturbance of emotions and conduct Hyperlipidemia GERD (gastroesophageal reflux disease) Depression Surgical History History of bariatric surgery Social History Household Members: None Housing: Apartment Do you presently have visiting nurse or other home services: No Alcohol intake: unknown Patient Tobacco Use Status: Current everyday Tobacco user Tobacco use type: Cigarette Cigarette Packs Per Day: 1 Cigarettes Per Day: 20.0 Years Smoked: 40 Packs Per Year: 40 Packs per year/per ci.00 e-Cigarette/Vaping Use: Never Used Second Hand Smoke Exposure: No Substance Use Type: Crack/Cocaine and Marijuana service: No Sexual orientation: Straight/Heterosexual Cognitive needs: No Hearing needs: No Vision needs: No Questionnaire Thrive Questionnaire Date Thrive assessed: 06/24/23 RENATE-7 AMB Questionnaire RENATE-7 Date RENATE - 7 assessed: 06/24/23 Source: Developed by Drs. Guido Madsen, Tamiko Parikh, Ted Mccain and colleagues, with an educational wander from [employer]. Review of Systems Const All systems reviewed & are unremarkable except as noted in HPI and below Physical exam (Primary Care) Vital Signs: Last Vital Signs Pulse 60 09/23/23 14:22 BP 132/80 09/23/23 14:22 Pulse Ox 98 09/23/23 14:22 BMI result Body Mass Index 38.1 Tobacco/Smoking Status: Tobacco use Status Tobacco use date assessed 06/24/23 09/23/23 14:26 Patient Tobacco Use Status Current everyday Tobacco 09/23/23 14:26 Tobacco use type Cigarette 09/23/23 14:26 e-Cigarette/Vaping Use Never Used 09/23/23 14:26 Thrive Assessment: Date of Thrive Assessment Date Thrive assessed 06/24/23 09/23/23 14:26 Const Other: Appearance: Alert.? Oriented X3.? No acute distress.? Head: Normocephalic, atraumatic, no step-offs or deformities Neck: Normal inspection.? Neck supple.? CVS: Normal heart rate and rhythm.? Pulses normal.? Respiratory: No respiratory distress.? Breath sounds normal.? Skin: Skin warm and dry.? Normal skin color.? Normal skin turgor.? Extremities: No lower extremity edema.? Back: No midline tenderness, no C-spine tenderness, full range of motion, no CVA tenderness bilaterally Neuro: Oriented X 3.? No motor deficit.? No sensory deficit. CN 2-12 intact Results Reviewed Results Reviewed: Sodium 143 135-145 mmol/L Potassium 4.0 3.3-5.1 mmol/L CL 109 H 96-108 mmol/L CO2 28 22-29 mmol/L Gap 10 L 12-20 BUN 20 H 9-16 mg/dL Creat 0.92 0.5-1.4 mg/dL EGFR > 60 NOTE: For -[place] individuals, multiply the result by 1.210. Chronic Kidney Disease: Estimated GFR < 60 mL/min/1.73m2 Severe Kidney Disease: Estimated GFR < 15 mL/min/1.73m2 Glucose, Random 103 60-115 mg/dL CA 8.9 8.4-10.2 mg/dL Total Bili 0.3 0.0-1.0 mg/dL AST (GOT) 18 5-37 U/L ALT (GPT) 11 0-40 U/L Protein, Total 6.2 L 6.5-8.0 g/dL Alb 3.9 3.5-5.0 g/dL Triglyceride 137 <150 mg/dL Desirable Triglyceride: less than 150 mg/dL Borderline High Triglyceride 150-199 mg/dL High Triglyceride: 200-499 mg/dL Very High Triglyceride: greater than or equal to 5OO mg/dL Cholesterol 141 <200 mg/dL Desirable Cholesterol: less than 200 mg/dL Borderline High Cholesterol: 200-239 mg/dL High Cholesterol: greater than 239 mg/dL LDL Calculated 68 <100 mg/dL Desirable LDL: less than 100 mg/dL Near Optimal/Above Optimal LDL: 110-129 mg/dL Borderline High LDL: 130-159 mg/dL High LDL: 160-189 mg/dL Very High LDL: greater than or equal to 190 mg/dL HDL 46 >40 mg/dL Desirable HDL: greater than 40 mg/dL Note: This HDL assay may give artificially low results in patients with liver disease. Alk Phos 57 39-117 U/L TSH 1.09 0.32-4.0 uIU/mL Assessment and Plan Assessment & Plan (1) Lumbar pain: Comment: Will order x-ray. Will refer to physical therapy Code(s): M54.50 - Low back pain, unspecified Plan: Will follow-up with x-ray results Orders: Orders XR lumbar spine 2-3V Today M54.50 - Low back pain, unspecified Medications: Refilled diclofenac sodium 1% (Arthritis Pain (diclofenac)) apply to single elbow, wrist or hand; for hand includes palm/fingers/back of hand 2 grams topical QID 100 grams 0RF Coding Level of Care Code Est Pt Level 3 (19857) Diagnoses Lumbar pain M54.50 Time Spent (min) 21
== END 2023-09-23 15:03 | disposition home or self-care (01) ==
PROVIDERS: Visit Provider Nurse Practitioner Primary Care
DX: M54.50 Low back pain, unspecified (principal)
CPT/HCPCS: 99213

== ENCOUNTER 2023-09-29 13:03 | Outpatient (REF) | payer OTHER, SELFPAY ==
--- NOTE | ~2023-09-29 | XR_ITS ---
EXAMINATION: XR LUMBOSACRAL SPINE CLINICAL INFORMATION: Low back pain, unspecified COMPARISON: None available. TECHNIQUE: Three views of the lumbosacral spine. FINDINGS: There 5 nonrib-bearing lumbar-type vertebral bodies. The height of the vertebral bodies is well-maintained. There is mild disc space narrowing with marginal osteophyte formation at L3-L4. There is grade 1 anterolisthesis of L4 with respect to L5. There is multilevel degenerative facet joint disease, most marked at L4-L5 and L5-S1. XR/XR lumbar spine 2-3V IMPRESSION: 1. Degenerative disc disease at L3-L4. 2. Multilevel degenerative facet joint disease. 3. Grade 1 anterolisthesis of L4 with respect to L5.
== END 2023-09-29 13:04 | disposition home or self-care (01) ==
LOC: HO.HMGCX 13:03
PROVIDERS: PCP Nurse Practitioner Primary Care; Visit Provider Nurse Practitioner Primary Care
DX: M54.50 Low back pain, unspecified (principal)
CPT/HCPCS: 72100

== ENCOUNTER 2023-11-05 08:06 | Day surgery (SDC) | payer OTHER, SELFPAY ==
--- NOTE | 2023-11-04 09:30 | HO.ANESPROP2 ---
Documented by User: Yanira Toussaint NP 11/04/23 09:30 HPI - Anesthesia Eval Consult details Narrative: 53yo M for Upper Endoscopy and Colonoscopy Hx polysub abuse, +utox 2021 PMF Active Problems Active Problems: All Active Problems Lumbar pain (Acute) Rash in adult (Acute) Pain of hand (Acute) Chronic post-traumatic stress disorder (PTSD) (Acute) Past Medical History Medical History Cocaine abuse Opioid abuse Chronic post-traumatic stress disorder (PTSD) Adjustment disorder with mixed disturbance of emotions and conduct Hyperlipidemia GERD (gastroesophageal reflux disease) Depression Surgical History Surgical History History of bariatric surgery Social History Social History Household Members: None Housing: Apartment Do you presently have visiting nurse or other home services: No Alcohol intake: unknown Patient Tobacco Use Status: Current everyday Tobacco user Tobacco use type: Cigarette Cigarette Packs Per Day: 1 Cigarettes Per Day: 20.0 Years Smoked: 40 e-Cigarette/Vaping Use: Never Used Second Hand Smoke Exposure: No Use of substances other than those prescribed or required for medical reasons: Yes Substance Use Type: Crack/Cocaine and Marijuana Substance Use Frequency: Daily Are you DNR?: No Advance Directives: No Advance Directives Information Provided: Yes service: No Sexual orientation: Straight/Heterosexual Cognitive needs: No Hearing needs: No Vision needs: No Meds Allergies Allergy/AdvReac Type Severity Reaction Status Date / Time No Known Allergies Allergy Verified 09/23/23 14:44 [No Known Allergies*] Home Medications ?Medication ?Instructions ?Recorded ?Confirmed ?Last Taken ?Type sertraline 100 mg tablet 2 tab PO DAILY 06/19/21 09/23/23 Unknown History hydroxyzine HCl 25 mg tablet 75 mg PO BEDTIME PRN 06/24/23 09/23/23 Unknown History oxcarbazepine 150 mg tablet 150 mg PO BID 06/24/23 09/23/23 Unknown History prazosin 1 mg capsule 1 mg PO BID 06/24/23 09/23/23 Unknown History tamsulosin 0.4 mg capsule 0.4 mg PO DAILY 06/24/23 09/23/23 Unknown History Assessment and Plan Assessment Anesthesia Assessment: Chart Reviewed Documented by User: Diya Wang MD 11/05/23 08:55 PMFSH Past Medical History Medical History Cocaine abuse Opioid abuse Chronic post-traumatic stress disorder (PTSD) Adjustment disorder with mixed disturbance of emotions and conduct Hyperlipidemia GERD (gastroesophageal reflux disease) Depression Family History Family history of problems with anesthesia: No Surgical History Surgical History History of bariatric surgery History of Problems with Anesthesia: No Social History Social History Household Members: None Housing: Apartment Do you presently have visiting nurse or other home services: No Alcohol intake: unknown Patient Tobacco Use Status: Current everyday Tobacco user Tobacco use type: Cigarette Cigarette Packs Per Day: 1 Cigarettes Per Day: 20.0 Years Smoked: 40 e-Cigarette/Vaping Use: Never Used Second Hand Smoke Exposure: No Use of substances other than those prescribed or required for medical reasons: Yes Substance Use Type: Crack/Cocaine and Marijuana Substance Use Frequency: Daily Are you DNR?: No Advance Directives: No Advance Directives Information Provided: Yes service: No Sexual orientation: Straight/Heterosexual Cognitive needs: No Hearing needs: No Vision needs: No Meds Allergies Allergy/AdvReac Type Severity Reaction Status Date / Time No Known Allergies Allergy Verified 09/23/23 14:44 [No Known Allergies*] Home Medications ?Medication ?Instructions ?Recorded ?Confirmed ?Last Taken ?Type sertraline 100 mg tablet 2 tab PO DAILY 06/19/21 09/23/23 Unknown History hydroxyzine HCl 25 mg tablet 75 mg PO BEDTIME PRN 06/24/23 09/23/23 Unknown History oxcarbazepine 150 mg tablet 150 mg PO BID 06/24/23 09/23/23 Unknown History prazosin 1 mg capsule 1 mg PO BID 06/24/23 09/23/23 Unknown History tamsulosin 0.4 mg capsule 0.4 mg PO DAILY 06/24/23 09/23/23 Unknown History Exam Airway Mallampati Class: III TM Dist: >3cm Neck ROM: Full Assessment and Plan Assessment Anesthesia Assessment: Anesthesia Plan Discussed and Smoking Cess. Discussed Final Anesthetic Review Family History of Problems with Anesthesia: No History of Problems with Anesthesia: No NPO: Yes ASA Class: III Final Preanesthetic Review: No Changes in Pt Med Stat, Meds/Allgs Chart Reviewed, Consent Obtained/Reviewed and Anes Risks/Benef Reviewed Patient Risk: Intermediate Procedure Risk: Low Anesthetic Plan Anesthetic Plan: TIVA Disposition: Standard PACU
--- NOTE | 2023-11-05 08:05 | PC.NURSE ---
Patient in waiting room, voiced he is taking an uber home after procedure. [facility] contacted by this nurse. Spoke to [place]. Able to bring patient home at 1145 to home in [place]. Patient made aware.
[2023-11-05 08:35] VITALS: BP 135/83; PULSE 53; RESP 16; TEMP 36.6; O2SAT 98; BMI 37.2
[2023-11-05] MEDS: Lactated Ringers 1,000 ML 100 ML IVCONT (08:47)
--- NOTE | 2023-11-05 08:57 | P.HPSUR_ITS ---
Pre-Procedural Eval Section A - 24 Hr Update-Section A only Date of Service: 11/05/23 Section B - Complete if H&P > 30 days Chief Complaint: Slow transit constipation,gerd, Details of Present Illness: dysphagia Relevant Family History (Specify if Yes): No Relevant Social History: Tobacco Use Present Medications: see Short Stay Collaborative assessment Medical History: Significant History (Cocaine abuse Opioid abuse Chronic post- traumatic stress disorder (PTSD) Adjustment disorder with mixed disturbance of emotions and conduct Hyperlipidemia GERD (gastroesophageal reflux disease) Depression) History of Previous Operations: Relevant previous surgery/procedure and date(s) (History of bariatric surgery) Allergies: Allergies Allergy/AdvReac Type Severity Reaction Status Date / Time No Known Allergies Allergy Verified 09/23/23 14:44 [No Known Allergies*] Review of Systems Sugical H&P ROS: Negative: Constitution, Cardiovascular, Respiratory, Neurological, Psychiatric, Hem-Onc, Allergic/Immunologic, Gastrointestinal, Shirley tourinary, Musculoskeletal, Integumentary, Endocrine and Eyes/Ears/Nose/Throat Exam Surgical H&P Exam: Normal: HEENT, Normal: Heart, Normal: Lungs, Normal: Extremities, Normal: Abdomen, Normal: Skin and Normal: Neurological Plan Diagnosis/Plan: Unchanged I have reviewed the history and physical and performed a pertinent physical examination on my patient. No changes have occurred unless specified. Time Spent With Patient Time: Total time managing care of this patient today ____ minutes.
--- NOTE | 2023-11-05 08:59 | PC.NURSE ---
md corral aware of hx of cocaine use. pt denies use at this time. ok to proceed without utox.
--- NOTE | 2023-11-05 09:57 | HO.OPN-COLON ---
Colonoscopy Operative Note Operative Note Date of Service: 11/05/23 Narrative: Operative Information Procedure Description: EGD, Colonoscopy Indication: screening,gerd Anesthesia: MAC FLEXIBLE TRANSORAL UPPER GASTROINTESTINAL ENDOSCOPY AND COLONOSCOPY PROCEDURE NOTE UPPER ENDOSCOPY Consent: Indications for the procedure and potential complications of bleeding, perforation, reaction to medications and missed diagnosis were discussed with the patient and informed consent was obtained. Instrument: Olympus GIF H 190 J mid size upper endoscope Monitoring: Vital signs and clinical assessment, continuous EKG monitoring, Pulse oximetry, Carbon Dioxide monitoring and blood pressure monitoring were done throughout the procedure. Procedure: The patient was placed in the left lateral decubitis position and pre-procedure medications were administered and a bite block was placed. The endoscope was inserted into the mouth and advanced under direct vision to the third part of duodenum. A careful inspection was made as the upper endoscope was withdrawn including a retroflexed examination of the proximal stomach; Findings and interventions are described below. Findings: Larynx:normal Esophagus: GE junction at 37 cm, diaphragm hiatus at 40 cm, consistent with 3 cm sliding hiatal hernia, lax LES with LA grade C erosive esophagitis streaks --balloon dilaiton done to 17 mm at UES and 20 mm at LES, no tears seen Stomach: intense eythema at antrum Biopsies were obtained. Grade 2 flap valve on retroflexed examination of the cardia. Pyloric outlet was tight and stretched with abllon to 18 mm. Duodenum: Normal bulb and descending duodenum, Intervention: Biopsies as noted above, balloon dilation COLONOSCOPY Instrument: Olympus variable stiffness pediatric scope 190L Colonoscopy Monitoring: Vital signs and clinical assessment, continuous EKG monitoring, Pulse oximetry, Carbon Dioxide monitoring and blood pressure monitoring were done throughout the procedure. Colon withdrawal time was 9 minutes. Procedure: The patient was placed in the left lateral decubitis position and pre-procedure medications were administered. After a digital rectal examination of the ano-rectum, the video colonoscope was inserted into the rectum and advanced through the colon to the cecum/TI. The colonoscope was slowly withdrawn in a retrograde panoramic fashion and the colon mucosa was carefully examined including a retroflexed view of the rectum. Findings and interventions are described below. Procedure Difficulty:moderate Findings: Terminal Ileum-normal Cecum: 3-4 mm sessile polyp removed with cold forceps Ascending Colon: normal Transverse Colon -normal Descending Colon:normal Sigmoid Colon: normal Rectum: Retroflexion with small inflammed internal hemorrhoids, grade I Anorectum - normal Colon preparation: [place] Bowel Preparation Scale Right colon; 2 Transverse colon: 2 Left colon; 2 (0 = Unprepared colon segment with mucosa not seen due to solid stool that cannot be cleared. 1 = Portion of mucosa of the colon segment seen, but other areas of the colon segment not well seen due to staining, residual stool and/or opaque liquid. 2 = Minor amount of residual staining, small fragments of stool and/or opaque liquid, but mucosa of colon segment seen well. 3 = Entire mucosa of colon segment seen well with no residual staining, small fragments of stool or opaque liquid) Impression and Post Procedure Diagnosis: Endoscopy Findings: gastritis hiatal hernia erosive esophagits grade C Colonoscopy Findings: colon polyp internal hemorrhoids Plan: Await Pathology results Repeat Colonoscopy in 5-7 years if adenomatous polyp, 10 yrs if benign or earlier if clinically indicated High fiber diet leaflet avoid straining at stool, epsom salts and sitz bath, anusol supps or cream GERD precautions, PPI if H pylori pos then treat Above findings were reviewed with the patient and relevant handouts were provided if indicated.
[2023-11-05 10:18] VITALS: BP 107/71; PULSE 71; RESP 18; TEMP 36.1; O2SAT 94
[2023-11-05 10:33] VITALS: BP 111/78; PULSE 57; RESP 18; TEMP 36.7; O2SAT 94
[2023-11-05 10:48] VITALS: BP 120/71; PULSE 69; RESP 18; TEMP 36.8; O2SAT 96
== END 2023-11-05 11:45 | disposition home or self-care (01) ==
PROVIDERS: PCP Nurse Practitioner Primary Care; Visit Provider Internal Medicine Gastroenterology
PROC: (CPT 43249; principal; 2023-11-05 09:40)
DX: K29.60 Other gastritis without bleeding (principal); K22.10 Ulcer of esophagus without bleeding; K22.4 Dyskinesia of esophagus; K44.9 Diaphragmatic hernia without obstruction or gangrene; K21.9 Gastro-esophageal reflux disease without esophagitis; K59.04 Chronic idiopathic constipation; Z12.11 Encounter for screening for malignant neoplasm of colon; D12.0 Benign neoplasm of cecum; K64.0 First degree hemorrhoids; K59.01 Slow transit constipation; F14.10 Cocaine abuse, uncomplicated; F11.10 Opioid abuse, uncomplicated; F43.12 Post-traumatic stress disorder, chronic; E78.5 Hyperlipidemia, unspecified; F17.210 Nicotine dependence, cigarettes, uncomplicated
CPT/HCPCS: 43249; 43245; 43239; 45380; 88305; 88313; 88342; C1726; J2250; J2704

== ENCOUNTER → 2023-11-05 08:06 | Outpatient (BNV) | payer OTHER, SELFPAY | PROVIDERS: PCP Nurse Practitioner Primary Care; Visit Provider Internal Medicine Gastroenterology | DX: K21.00 Gastro-esophageal reflux disease with esophagitis, without bleeding (principal); K29.70 Gastritis, unspecified, without bleeding; Z12.11 Encounter for screening for malignant neoplasm of colon; D12.0 Benign neoplasm of cecum; K64.0 First degree hemorrhoids | CPT/HCPCS: 43245; 43249; 45380 ==

== ENCOUNTER 2023-11-18 08:47 | Outpatient (AMB) | payer OTHER, SELFPAY ==
--- NOTE | 2023-11-18 08:49 | A.OFFVIS_ITS ---
Vital Signs 11/18/23 08:51 Height 5 ft 3 in Weight 210 lb 12.191 oz BMI 37.3 BP 120/82 Blood Pressure Location Lt brachial Position Sitting Pulse 54 Pulse Source Pulse Oximeter Pulse Oximetry (%) 96 Oxygen Delivery Method Room Air Intake Visit Reasons: colonoscopy results Intake Note: Speedy presents in office today for a scheduled post op FUV. CC; Pt reports that he is here to discuss the results of his s/p today. Pt denies any complications or new concerns post op. Field Research Assistant Required: No Allergies No Known Allergies [No Known Allergies*] Allergy (Verified 11/18/23 08:50) HPI HPI colonoscopy results: Details: LAST VISIT Screen for colon cancer GERD (gastroesophageal reflux disease) Constipation Plan Patient will continue Dulcolax. Discuss prep with him before procedure. For Dulcolax tablets at noon follow with split MiraLax prep. Clear liquid diet day before procedure discussed with patient. Patient will be sent also for upper endoscopy to rule out gastritis, esophagitis, gastric or peptic ulcers, Eli's, H pylori. Patient was encouraged to eat small meals and follow-up with his bariatric surgeon after the procedure. Patient is agreeable to this plan and verbalizes understanding of instructions. He was given the opportunity to ask questions and all questions answered. ? Thank you for allowing me to participate in his care Medications New polyethylene glycol 3350 (Miralax) As directed by gastroenterology department at [facility] 238 grams PO ONCE 238 grams 0RF Z12.11 UPPER ENDOSCOPY AND COLONOSCOPY Upper endoscopy Findings: Larynx:normal Esophagus: GE junction at 37 cm, diaphragm hiatus at 40 cm, consistent with 3 cm sliding hiatal hernia, lax LES with LA grade C erosive esophagitis streaks --balloon dilaiton done to 17 mm at UES and 20 mm at LES, no tears seen Stomach: intense eythema at antrum Biopsies were obtained. Grade 2 flap valve on retroflexed examination of the cardia. Pyloric outlet was tight and stretched with abllon to 18 mm. Duodenum: Normal bulb and descending duodenum, Intervention: Biopsies as noted above, balloon dilation Colonoscopy Findings: Terminal Ileum-normal Cecum: 3-4 mm sessile polyp removed with cold forceps Ascending Colon: normal Transverse Colon -normal Descending Colon:normal Sigmoid Colon: normal Rectum: Retroflexion with small inflammed internal hemorrhoids, grade I Anorectum - normal Colon preparation: [place] Bowel Preparation Scale Right colon; 2 Transverse colon: 2 Left colon; 2 (0 = Unprepared colon segment with mucosa not seen due to solid stool that cannot be cleared. 1 = Portion of mucosa of the colon segment seen, but other areas of the colon segment not well seen due to staining, residual stool and/or opaque liquid. 2 = Minor amount of residual staining, small fragments of stool and/or opaque liquid, but mucosa of colon segment seen well. 3 = Entire mucosa of colon segment seen well with no residual staining, small fragments of stool or opaque liquid) Impression and Post Procedure Diagnosis: Endoscopy Findings: gastritis hiatal hernia erosive esophagits grade C Colonoscopy Findings: colon polyp internal hemorrhoids Plan: Await Pathology results Repeat Colonoscopy in 5-7 years if adenomatous polyp, 10 yrs if benign or earlier if clinically indicated High fiber diet leaflet avoid straining at stool, epsom salts and sitz bath, anusol supps or cream GERD precautions, PPI if H pylori pos then treat PATHOLOGY RESULTS Diagnosis A. Colon, cecal polyp: Tubular adenoma, likely excised; negative for high grade dysplasia and carcinoma. B. Stomach, biopsy: Gastric antral mucosa with minimal chronic inactive gastritis; negative for H pylori, intestinal metaplasia and dysplasia. TODAY'S VISIT: Patient is here today for follow-up and to discuss upper endoscopy and colonoscopy results. Patient denies any ill effects from the prep, anesthesia or procedure itself. One cecal polyp showing tubular adenoma without high-grade dysplasia or carcinoma. Stomach biopsy showed inactive gastritis without H pylori, intestinal metaplasia or dysplasia. Patient reports that he occasionally will still feel acid reflux mainly at night time. Patient denies any abdominal pain or discomfort. Reports to be feeling well. Moving his bowel s using Dulcolax daily. Patient denies any melena, hematochezia. Denies any dyspepsia, dysphagia or odynophagia. [facility] Medical History (Updated 11/25/23 @ 20:58 by Umu Raines [facility]-) Tubular adenoma Cocaine abuse Opioid abuse Chronic post-traumatic stress disorder (PTSD) Adjustment disorder with mixed disturbance of emotions and conduct Hyperlipidemia GERD (gastroesophageal reflux disease) Depression Surgical History History of bariatric surgery Social History Household Members: None Housing: Apartment Do you presently have visiting nurse or other home services: No Alcohol intake: unknown Patient Tobacco Use Status: Current everyday Tobacco user Tobacco use type: Cigarette Cigarette Packs Per Day: 1 Cigarettes Per Day: 20.0 Years Smoked: 40 e-Cigarette/Vaping Use: Never Used Second Hand Smoke Exposure: No Substance Use Type: Crack/Cocaine and Marijuana service: No Sexual orientation: Straight/Heterosexual Cognitive needs: No Hearing needs: No Vision needs: No Review of Systems Const Denies weight gain and Denies weight loss ENT Reports no additional complaints, Denies dysphagia and Denies odynophagia Card Reports no additional complaints Resp Reports no additional complaints GI Denies abdominal pain, Denies belching, Denies melena, Denies bloating, Denies change in bowel habits, Denies dysphagia, Denies excessive flatus, Denies dyspe psia, Denies heartburn, Denies diarrhea, Denies loose stools, Denies nausea, Denies odynophagia and Denies vomiting Reports no additional complaints Musc Reports no additional complaints Neuro Reports no additional complaints Psych Reports no additional complaints Endo Reports no additional complaints Physical Exam Vital Signs: Last Vital Signs Pulse 54 11/18/23 08:51 BP 120/82 11/18/23 08:51 Pulse Ox 96 11/18/23 08:51 Oxygen Delivery Method Room Air 11/18/23 08:51 BMI result Body Mass Index 37.3 Const General: healthy appearing and no acute distress Nutritional Appearance: obese Orientation/consciousness: patient oriented x3 Resp Effort & Inspection: normal respiratory effort, able to speak in complete sentences, no tracheal deviation and symmetric chest movement Auscultation: clear to auscultation bilaterally Cardio Rate: regular rate GI Inspection: Yes normal to inspection, No distended and Yes obesity Palpation (GI): Soft to palpation, not firm, nontender and No hepatosplenomegaly present Auscultation: normal bowel sounds General: Yes no CVA tenderness Back/Spine/Pelvis Back: no CVA tenderness Skin General skin exam: elasticity normal, turgor normal and dry skin Neuro General: patient oriented x3 Psych Appearance: grossly normal Mental Status: mental status grossly normal Assessment & Plan Assessment & Plan (1) Tubular adenoma: Code(s): D36.9 - Benign neoplasm, unspecified site Category: Medical (2) Status post colonoscopy: Code(s): Z98.890 - Other specified postprocedural states (3) GERD (gastroesophageal reflux disease): Code(s): K21.9 - Gastro-esophageal reflux disease without esophagitis Qualifiers: Esophagitis presence: without esophagitis Qualified Code(s): K21.9 - Gastro-esophageal reflux disease without esophagitis (4) Constipation: Code(s): K59.00 - Constipation, unspecified Qualifiers: Constipation type: slow transit constipation Qualified Code(s): K59.01 - Slow transit constipation Plan Continue pantoprazole in the morning. Continue avoiding dietary triggers and late night snacking. Staying upright for minimum 3 hours after meals discussed with patient. Patient will start taking famotidine at bedtime. May take Dulcolax on as needed basis for constipation. Increase fluid intake and activity to promote better bowel motility. Colonoscopy in 5-7 years. One tubular adenoma without high-grade dysplasia or carcinoma. Increase fiber intake. Follow-up in the office in 4 months, sooner on as needed basis. Patient is agreeable to this plan and verbalizes understanding of instructions. He was given the opportunity to ask questions and all questions answered. Thank you for allowing me to participate in his care Medications: Refilled famotidine 40 mg PO BEDTIME 90 tabs 3RF K21.9 - Gastro-esophageal reflux disease without esophagitis Coding Level of Care Code Est Pt Level 3 (10352) Diagnoses Tubular adenoma D36.9 Status post colonoscopy Z98.890 Gastroesophageal reflux disease without esophagitis K21.9 Esophagitis presence: without esophagitis Slow transit constipation K59.01 Constipation type: slow transit constipation Time Spent (min) 30 Comment 20 minutes spent with patient and additional 10 minutes spent reviewing his records
[2023-11-18 08:51] VITALS: BP 120/82; PULSE 54; O2SAT 96; BMI 37.3
== END 2023-11-18 09:07 | disposition home or self-care (01) ==
PROVIDERS: PCP Nurse Practitioner Primary Care; Visit Provider Nurse Practitioner Family
DX: D36.9 Benign neoplasm, unspecified site (principal); Z98.890 Other specified postprocedural states; K21.9 Gastro-esophageal reflux disease without esophagitis; K59.01 Slow transit constipation
CPT/HCPCS: 99213

== ENCOUNTER → 2023-11-18 08:47 | Outpatient (BNVA) | payer OTHER, SELFPAY | PROVIDERS: PCP Nurse Practitioner Primary Care; Visit Provider Nurse Practitioner Family | DX: K21.9 Gastro-esophageal reflux disease without esophagitis (principal); K59.01 Slow transit constipation; D36.9 Benign neoplasm, unspecified site; Z98.890 Other specified postprocedural states | CPT/HCPCS: 99212 ==

== ENCOUNTER 2023-12-11 13:22 | Outpatient (AMB) | payer OTHER, SELFPAY ==
[2023-12-11 13:24] VITALS: BP 138/84; PULSE 60; O2SAT 96; BMI 37.7
--- NOTE | 2023-12-11 13:24 | MHC.PC.OV ---
Vital Signs 12/11/23 13:24 Height 5 ft 3 in Weight 213 lb BMI 37.7 BP 138/84 Blood Pressure Location Rt brachial Position Sitting Pulse 60 Pulse Source Pulse Oximeter Pulse Oximetry (%) 96 Oxygen Delivery Method Room Air Intake Visit Reasons: Rash (Transfer from [facility]) ok per AG Allergies No Known Allergies [No Known Allergies*] Allergy (Verified 12/03/23 12:38) Medication List - Last Reconciled 12/11/23 by Suzette Campbell MD acetaminophen 1,000 mg (2 x 500 mg) PO Q6H PRN albuterol sulfate 90 mcg/actuation (Ventolin HFA) 2 puffs inhalation QID PRN atorvastatin 20 mg PO DAILY cetirizine 10 mg PO DAILY diclofenac sodium 1% 2 grams topical QID famotidine 40 mg PO BEDTIME hydroxyzine HCl 75 mg PO BEDTIME PRN oxcarbazepine 150 mg PO BID pantoprazole 40 mg PO DAILY polyethylene glycol 3350 (Miralax) 238 grams PO ONCE prazosin 1 mg PO BID sertraline 2 tabs PO DAILY tamsulosin 0.4 mg PO DAILY Tobacco use date assessed: 12/11/23 Dental Screening Dental Screen Date: 12/11/23 Did you have a dental visit in the last 12 months?: No Did you have a dental problem in the last 6 months where you did not have access to dental care?: No Was dental information given to patient?: Patient has dentist HPI Rash (Transfer from [facility]) ok per AG HPI Details Patient is a 53-year-old gentleman came in today for establish care visit Patient had a bariatric surgery after that he had skin fold lower abdomen Which is causing flare-up of tinea corporis rash every now and then Patient also have similar rash in groin area He is a diet-controlled diabetic, since he has lost weight he has stopped taking the diabetes medications Patient suffers from PTSD due to childhood trauma Have difficulty staying with anyone else, even though he has and children and grandchildren But he lives alone, comes over to clean and cook for him He is seeing psychiatrist and therapist and is taking psychiatric medications through them Lipid disorder: He is on atorvastatin 20 mg daily Allergies are stable with cetirizine 10 mg once a day Has osteoarthritis multiple joint and is on local rub for the knees Patient is also on famotidine 40 mg for GERD All psychiatric medications are from Psychiatry Follow-up 3 months [facility] Medical History Tubular adenoma Cocaine abuse Opioid abuse Chronic post-traumatic stress disorder (PTSD) Adjustment disorder with mixed disturbance of emotions and conduct Hyperlipidemia GERD (gastroesophageal reflux disease) Depression Surgical History History of bariatric surgery Social History Household Members: None Housing: Apartment Do you presently have visiting nurse or other home services: No Alcohol intake: unknown Patient Tobacco Use Status: Current everyday Tobacco user Tobacco use type: Cigarette Cigarette Packs Per Day: 1 Cigarettes Per Day: 20.0 Years Smoked: 40 e-Cigarette/Vaping Use: Never Used Second Hand Smoke Exposure: No Substance Use Type: Crack/Cocaine and Marijuana service: No Sexual orientation: Straight/Heterosexual Cognitive needs: No Hearing needs: No Vision needs: No Questionnaire PHQ-9 Over the last 2 weeks, how often have you been bothered by any of the following problems? 1. Little interest or pleasure in doing things: several days 2. Feeling down, depressed, or hopeless: more than half the days 3. Trouble falling or staying asleep, or sleeping too much: not at all 4. Feeling tired or having little energy: not at all 5. Poor appetite or overeating: not at all 6. Feeling bad about yourself - or that you are a failure or have let yourself or your family down: not at all 7. Trouble concentrating on things, such as reading the newspaper or watching television: not at all 8. Moving or speaking so slowly that other people could have noticed. Or the opposite - being so fidgety or restless that you have been moving around a lot more than usual: not at all 9. Thoughts that you would be better off or of hurting yourself in some way: not at all Total score: 3 Depression Screening Interpretation: Negative Depression Screening Done: Yes 26847 - PHQ-9 Billing: Yes Source: Developed by Drs. Guido Madsen, Tamiko Parikh, Ted Mccain and colleagues, with an educational wander from [email or web address]. Thrive Questionnaire Date Thrive assessed: 12/11/23 I am a: Patient What is your living situation today?: I choose not to answer this question Within the past 12 months, did the food you bought not last and you didn't have the money to get more?: I choose not to answer this question Within the past 12 months, did you worry whether your food would run out before you got money to buy more?: I choose not to answer this question Do you have trouble paying for medicines?: I choose not to answer this question Do you have trouble getting transportation to medical appointments?: I choose not to answer this question Do you have trouble paying your heating and electricity bill?: I choose not to answer this question Do you have trouble taking care of your child, family member or friend?: I choose not to answer this question Do you have trouble with day-to-day activities such as bathing, preparing meals, shopping, managing finances, etc.?: I choose not to answer this question Are you currently unemployed and looking for a job?: I choose not to answer this question Are you interested in more education?: I choose not to answer this question Please select the resources that you would like help with: None Currently or been in a relationship where the following occur: I choose not to answer THRIVE Score: 0 AUDIT C Alcohol Use Questionnaire (AUDIT-C) 1. How often do you have a drink containing alcohol?: Never 3. How often do you have six or more drinks on one occasion?: Never Total Score: 0 Score Reviewed/Action Taken: Yes RENATE-7 AMB Questionnaire RENATE-7 Date RENATE - 7 assessed: 12/11/23 Feeling nervous, anxious, or on edge: 0 = Not at all Not being able to stop or control worryin = Not at all Worrying too much about different things: 0 = Not at all Trouble relaxin = Not at all Being so restless that it is hard to sit still: 3 = Nearly every day Becoming easily annoyed or irritable: 3 = Nearly every day Feeling afraid as if something awful might happen: 3 = Nearly every day Total RENATE-7 score (0-4 normal; 5-9 mild; 10-14 moderate; 15-21 severe): 9 Source: Developed by Drs. Guido Madsen, Tamiko Parikh, Ted Mccain and colleagues, with an educational wander from [email or web address]. RENATE-7 Assessment Billing RENATE-7 Assessment Tool: RENATE-7 Assessment 34085 Review of Systems Const Denies chills and Denies fever(s) ENT Denies epistaxis and Denies nasal discharge Card Denies chest pain Resp Denies chest congestion, Denies cough and Denies hemoptysis GI Denies diarrhea and Denies nausea Neuro Reports no additional complaints Psych Reports no additional complaints Endo Reports no additional complaints Physical exam (Primary Care) Vital Signs: Last Vital Signs Pulse 60 12/11/23 13:24 BP 138/84 12/11/23 13:24 Pulse Ox 96 12/11/23 13:24 Oxygen Delivery Method Room Air 12/11/23 13:24 BMI result Body Mass Index 37.7 Tobacco/Smoking Status: Tobacco use Status Tobacco use date assessed 12/11/23 12/11/23 13:26 Patient Tobacco Use Status Current everyday Tobacco 12/11/23 13:26 Tobacco use type Cigarette 12/11/23 13:26 e-Cigarette/Vaping Use Never Used 12/11/23 13:26 PHQ-9: PHQ-9 Score PHQ-9: Total score 3 12/11/23 13:40 Depression Screening Interpretation: Negative Thrive Assessment: Date of Thrive Assessment Date Thrive assessed 12/11/23 12/11/23 13:32 Currently or been in a relationship where the following occur: I choose not to answer Const General: cooperative, comfortable and no acute distress Orientation/consciousness: patient oriented x3 HENMT Head: Yes normocephalic Eyes General: appearance normal, both eyes and all related structures Neck Neck: Yes supple Resp Effort & Inspection: normal respiratory effort, no cough and no stridor Cardio Rhythm: regular rhythm Heart sounds: S1 normal heart sound present and S2 normal heart sound present Skin Other: Erythematous rash under the skin fold abdomen General skin exam: turgor normal Neuro General: patient oriented x3, tone normal and moves all extremities Extrem Right lower extremity: no edema Left lower extremity: no edema Assessment and Plan Assessment & Plan (1) Establishing care with new doctor, encounter for: Code(s): Z76.89 - Persons encountering health services in other specified circumstances (2) Tinea corporis: Code(s): B35.4 - Tinea corporis (3) Diet-controlled diabetes mellitus: Code(s): E11.9 - Type 2 diabetes mellitus without complications (4) GERD (gastroesophageal reflux disease): Code(s): K21.9 - Gastro-esophageal reflux disease without esophagitis Qualifiers: Esophagitis presence: without esophagitis Qualified Code(s): K21.9 - Gastro-esophageal reflux disease without esophagitis (5) History of bariatric surgery: Code(s): Z98.84 - Bariatric surgery status (6) Lipid disorder: Code(s): E78.9 - Disorder of lipoprotein metabolism, unspecified (7) Chronic post-traumatic stress disorder (PTSD): Code(s): F43.12 - Post-traumatic stress disorder, chronic (8) History of cocaine abuse: Code(s): F14.11 - Cocaine abuse, in remission Plan Patient is a 53-year-old gentleman came in today for establish care visit Patient had a bariatric surgery after that he had skin fold lower abdomen Which is causing flare-up of tinea corporis rash every now and then Patient also have similar rash in groin area He is a diet-controlled diabetic, since he has lost weight he has stopped taking the diabetes medications Patient suffers from PTSD due to childhood trauma Have difficulty staying with anyone else, even though he has and children and grandchildren But he lives alone, comes over to clean and cook for him He is seeing psychiatrist and therapist and is taking psychiatric medications through them Lipid disorder: He is on atorvastatin 20 mg daily Allergies are stable with cetirizine 10 mg once a day Has osteoarthritis multiple joint and is on local rub for the knees Patient is also on famotidine 40 mg for GERD All psychiatric medications are from Psychiatry Follow-up 3 months Orders: Orders Complete Blood Count Auto Diff Today B35.4 - Tinea corporis, E11.9 - Type 2 diabetes mellitus without complications, E78.9 - Disorder of lipoprotein metabolism, unspecified, F14.11 - Cocaine abuse, in remission, F43.12 - Post-traumatic stress disorder, chronic, K21.9 - Gastro-esophageal reflux disease without esophagitis, Z76.89 - Persons encountering health services in other specified circumstances, Z98.84 - Bariatric surgery status Microalbumin, Random (w Creat) Today B35.4 - Tinea corporis, E11.9 - Type 2 diabetes mellitus without complications, E78.9 - Disorder of lipoprotein metabolism, unspecified, F14.11 - Cocaine abuse, in remission, F43.12 - Post-traumatic stress disorder, chronic, K21.9 - Gastro-esophageal reflux disease without esophagitis, Z76.89 - Persons encountering health services in other specified circumstances, Z98.84 - Bariatric surgery status Comprehensive [place]. Panel Fast Today B35.4 - Tinea corporis, E11.9 - Type 2 diabetes mellitus without complications, E78.9 - Disorder of lipoprotein metabolism, unspecified, F14.11 - Cocaine abuse, in remission, F43.12 - Post-traumatic stress disorder, chronic, K21.9 - Gastro-esophageal reflux disease without esophagitis, Z76.89 - Persons encountering health services in other specified circumstances, Z98.84 - Bariatric surgery status Lipid Panel Today B35.4 - Tinea corporis, E11.9 - Type 2 diabetes mellitus without complications, E78.9 - Disorder of lipoprotein metabolism, unspecified, F14.11 - Cocaine abuse, in remission, F43.12 - Post-traumatic stress disorder, chronic, K21.9 - Gastro-esophageal reflux disease without esophagitis, Z76.89 - Persons encountering health services in other specified circumstances, Z98.84 - Bariatric surgery status Hemoglobin A1c Today B35.4 - Tinea corporis, E11.9 - Type 2 diabetes mellitus without complications, E78.9 - Disorder of lipoprotein metabolism, unspecified, F14.11 - Cocaine abuse, in remission, F43.12 - Post-traumatic stress disorder, chronic, K21.9 - Gastro-esophageal reflux disease without esophagitis, Z76.89 - Persons encountering health services in other specified circumstances, Z98.84 - Bariatric surgery status Medications: New clotrimazole-betamethasone 1-0.05 % 1 appl topical ONCE 45 grams 3RF rash 30 days Coding Level of Care Code New Pt Level 4 (81517) Diagnoses Establishing care with new doctor, encounter for Z76. Tinea corporis B35.4 Diet-controlled diabetes mellitus E11.9 Gastroesophageal reflux disease without esophagitis K21.9 Esophagitis presence: without esophagitis History of bariatric surgery Z. Lipid disorder E78.9 Chronic post-traumatic stress disorder (PTSD) F43.12 History of cocaine abuse F14.11 Additional Codes RENATE-7 Assessment Billing - RENATE-7 Assessment Tool: RENATE-7 Assessment 40777 ([id number])
== END 2023-12-11 13:39 | disposition home or self-care (01) ==
PROVIDERS: PCP Nurse Practitioner Primary Care; Visit Provider Internal Medicine
DX: E11.9 Type 2 diabetes mellitus without complications (principal); Z76.89 Persons encountering health services in other specified circumstances; B35.4 Tinea corporis; F14.11 Cocaine abuse, in remission; K21.9 Gastro-esophageal reflux disease without esophagitis; Z98.84 Bariatric surgery status; E78.9 Disorder of lipoprotein metabolism, unspecified; F43.12 Post-traumatic stress disorder, chronic
CPT/HCPCS: 99214

== ENCOUNTER 2024-02-12 10:39 | Outpatient (REF) | payer OTHER, SELFPAY ==
[2024-02-12 13:15] LABS: MANUAL DIFF FLAG NO
[2024-02-12 13:24] LABS: Basophils Percent Auto 0.6 % (0-2); Eosinophils Absolute Auto 0.1 X10*3/uL (0.0-0.4); Hematocrit 37.6 % (42.0-52.0); Hemoglobin 13.2 g/dl (14.0-18.0); Imm Gran Abs Auto 0.02 X10*3/uL (0.00-0.03); Imm Gran Pct Auto 0.4 % (0.0-0.4); Lymphocytes Absolute Auto 1.2 X10*3/uL (1.2-4.9); Mean Corpuscular HGB Conc 35.1 g/dl (31.0-36.0); Mean Corpuscular Hemoglobin 29.7 pg (27.0-33.0); Mean Corpuscular Volume 84.5 fL (80.0-98.0); Mean Platelet Volume 11.4 fL (9.4-12.4); Monocytes Absolute Auto 0.5 X10*3/uL (0.1-1.2); Monocytes Percent Auto 9.8 % (2-11); Neutrophils Absolute Auto 3.5 x10*3/uL (2.0-8.3); Neutrophils Percent Auto 65.2 % (45-73); Platelet Count 211 X10*3/uL (160-400); Red Blood Count 4.45 X10*6/uL (4.60-5.80); Red Cell Distribution Width 13.3 % (11.0-16.0); White Blood Count 5.4 X10*3/uL (4.8-10.8)
[2024-02-12 13:39] LABS: Microalbumin Urine < 5.0 mg/L
[2024-02-12 13:47] LABS: Estimated Average Glucose 117 mg/dL; Hemoglobin A1c % 5.7 % (<6.0); Total Hemoglobin (HGBA1C) 3328.5092 umol/L
[2024-02-12 13:52] LABS: Alanine Aminotransferase 15 U/L (0-40); Albumin Level 4.3 g/dL (3.5-5.0); Alkaline Phosphatase 69 U/L (39-117); Anion Gap 12 (12-20); Aspartate Amino Transferase 24 U/L (5-37); Bilirubin Total 0.4 mg/dL (0.0-1.0); Blood Urea Nitrogen 20 mg/dL (9-16); Calcium 9.1 mg/dL (8.4-10.2); Carbon Dioxide 26 mmol/L (22-29); Chloride 107 mmol/L (96-108); Cholesterol 200 mg/dL (<200); Estimated Glomerular Filt Rate > 60; Glucose Fasting 120 mg/dL (60-99); HDL Cholesterol 46 mg/dL (>40); LDL Cholesterol Calculated 133 mg/dL (<100); Potassium 4.3 mmol/L (3.3-5.1); Sodium 141 mmol/L (135-145); Total Protein 6.8 g/dL (6.5-8.0); Triglycerides 106 mg/dL (<150)
== END 2024-02-12 10:40 | disposition home or self-care (01) ==
LOC: HO.HMGCLDS 10:39
PROVIDERS: PCP Internal Medicine; Visit Provider Internal Medicine
DX: F14.11 Cocaine abuse, in remission (principal); K21.9 Gastro-esophageal reflux disease without esophagitis; F43.12 Post-traumatic stress disorder, chronic; E11.9 Type 2 diabetes mellitus without complications; Z98.84 Bariatric surgery status; B35.4 Tinea corporis; E78.9 Disorder of lipoprotein metabolism, unspecified; Z76.89 Persons encountering health services in other specified circumstances
CPT/HCPCS: 36415; 80053; 80061; 82570; 83036; 85025

== ENCOUNTER 2024-03-16 09:42 | Outpatient (AMB) | payer OTHER, SELFPAY ==
[2024-03-16 09:47] VITALS: BP 150/96; PULSE 56; O2SAT 98; BMI 37.7
--- NOTE | 2024-03-16 09:47 | MHC.OFFVIS ---
Vital Signs 03/16/24 09:47 Height 5 ft 3 in Weight 212 lb 15.465 oz BMI 37.7 BP 150/96 H Blood Pressure Location Rt brachial Position Sitting Pulse 56 Pulse Source Pulse Oximeter Pulse Oximetry (%) 98 Oxygen Delivery Method Room Air Intake Visit Reasons: 4 month follow up Intake Note: PRESCRIPTIONS LAST GENERATED famotidine 40 mg tablet?40 mg PO BEDTIME 90 tabs 3RF YannaCesara D 11/18/23 09:05 (Transmitted) Pt still taking this medication without difficulty Relevant Flags or Indicators ? Requires [employer] Stripper Etcher? Faviola Speedy presents in office today for a scheduled 4 mos FUV. CC; No recent labs, diagnostics Relevant GI Sx as reported per pt? Reflux 2-3 days / week. ? Hx of any recent surgeries? None [employer] Stripper Etcher Required: No Allergies No Known Allergies [No Known Allergies*] Allergy (Verified 03/16/24 09:47) HPI HPI 4 month follow up: Details: LAST VISIT: Tubular adenoma Status post colonoscopy GERD (gastroesophageal reflux disease) Constipation Plan Continue pantoprazole in the morning. Continue avoiding dietary triggers and late night snacking. Staying upright for minimum 3 hours after meals discussed with patient. Patient will start taking famotidine at bedtime. May take Dulcolax on as needed basis for constipation. Increase fluid intake and activity to promote better bowel motility. Colonoscopy in 5-7 years. One tubular adenoma without high-grade dysplasia or carcinoma. Increase fiber intake. Follow-up in the office in 4 months, sooner on as needed basis. Patient is agreeable to this plan and verbalizes understanding of instructions. He was given the opportunity to ask questions and all questions answered. ? Thank you for allowing me to participate in his care Medications Refilled famotidine 40 mg PO BEDTIME 90 tabs 3RF K21.9 TODAY'S VISIT Patient is here today for follow-up. Patient reports that he feels frustrated with his bariatric surgery. He has not felt well since his procedure. Patient feels depressed, denies SI or HI. States that he is not consistent with taking his pantoprazole or famotidine. His symptoms are there if he is not taking the medication and help only little bit when he takes it. Patient denies any nausea or vomiting. Denies melena, hematochezia, unintentional weight loss or ribbon like stools. Patient does not want to try to change to a different PPI. Patient also voices that he does not want to follow-up with any doctors not even his PCP [facility] Medical History Tubular adenoma Cocaine abuse Opioid abuse Chronic post-traumatic stress disorder (PTSD) Adjustment disorder with mixed disturbance of emotions and conduct Hyperlipidemia GERD (gastroesophageal reflux disease) Depression Surgical History History of bariatric surgery Social History Household Members: None Housing: Apartment Do you presently have visiting nurse or other home services: No Alcohol intake: unknown Patient Tobacco Use Status: Current everyday Tobacco user Tobacco use type: Cigarette Cigarette Packs Per Day: 1 Cigarettes Per Day: 20.0 Years Smoked: 40 e-Cigarette/Vaping Use: Never Used Second Hand Smoke Exposure: No Substance Use Type: Crack/Cocaine and Marijuana service: No Sexual orientation: Straight/Heterosexual Cognitive needs: No Hearing needs: No Vision needs: No Review of Systems Const Denies weight gain and Denies weight loss ENT Reports no additional complaints, Denies dysphagia and Denies odynophagia Card Reports no additional complaints Resp Reports no additional complaints GI Denies abdominal pain, Denies belching, Denies melena, Denies bloating, Denies change in bowel habits, Denies dysphagia, Denies excessive flatus, Denies dyspepsia, Reports heartburn, Denies diarrhea, Denies loose stools, Denies nausea, Denies odynophagia and Denies vomiting Reports no additional complaints Musc Reports no additional complaints Neuro Reports no additional complaints Psych Reports no additional complaints Endo Reports no additional complaints Physical Exam Vital Signs: Last Vital Signs Pulse 56 03/16/24 09:47 BP 150/96 H 03/16/24 09:47 Pulse Ox 98 03/16/24 09:47 Oxygen Delivery Method Room Air 03/16/24 09:47 BMI result Body Mass Index 37.7 Const General: healthy appearing and no acute distress Nutritional Appearance: obese Orientation/consciousness: patient oriented x3 Resp Effort & Inspection: normal respiratory effort, able to speak in complete sentences, no tracheal deviation and symmetric chest movement Auscultation: clear to auscultation bilaterally Cardio Rate: regular rate GI Inspection: Yes normal to inspection, No distended and Yes obesity Palpation (GI): Soft to palpation, not firm, nontender and No hepatosplenomegaly present Auscultation: normal bowel sounds General: Yes no CVA tenderness Back/Spine/Pelvis Back: no CVA tenderness Skin General skin exam: elasticity normal, turgor normal and dry skin Neuro General: patient oriented x3 Psych Appearance: grossly normal Speech and movement: Clear speech present Thought content: suicidality and no homicidality Assessment & Plan Assessment & Plan (1) GERD (gastroesophageal reflux disease): Code(s): K21.9 - Gastro-esophageal reflux disease without esophagitis Category: Medical Qualifiers: Esophagitis presence: without esophagitis Qualified Code(s): K21.9 - Gastro-esophageal reflux disease without esophagitis (2) Constipation: Code(s): K59.00 - Constipation, unspecified Qualifiers: Constipation type: slow transit constipation Qualified Code(s): K59.01 - Slow transit constipation Plan Patient frustrated during visit today does not want to follow-up with any provider. Tried convincing patient to change PPI treatment and he declined. Patient admitted to feeling depressed, however he denies SI or HI. He will follow-up on as needed basis. He is agreeable to this plan and verbalizes understanding of instructions. He was given the opportunity to ask questions and all questions answered. Coding Level of Care Code Est Pt Level 3 (88366) Diagnoses Gastroesophageal reflux disease without esophagitis K21.9 Esophagitis presence: without esophagitis Slow transit constipation K59.01 Constipation type: slow transit constipation Time Spent (min) 25 Comment 15 minutes spent with patient and additional 10 minutes spent reviewing his records
== END 2024-03-16 10:03 | disposition home or self-care (01) ==
PROVIDERS: PCP Nurse Practitioner Primary Care; Visit Provider Nurse Practitioner Family
DX: K21.9 Gastro-esophageal reflux disease without esophagitis (principal); K59.01 Slow transit constipation
CPT/HCPCS: 99213

== ENCOUNTER → 2024-03-16 09:42 | Outpatient (BNVA) | payer OTHER, SELFPAY | PROVIDERS: PCP Nurse Practitioner Primary Care; Visit Provider Nurse Practitioner Family | DX: K21.9 Gastro-esophageal reflux disease without esophagitis (principal); K59.01 Slow transit constipation | CPT/HCPCS: 99212 ==

== ENCOUNTER 2024-03-23 11:51 | Outpatient (AMB) | payer OTHER, SELFPAY ==
[2024-03-23 12:07] VITALS: BP 122/80; PULSE 61; O2SAT 96; BMI 38.4
--- NOTE | 2024-03-23 12:07 | MHC.PC.OV ---
Vital Signs 03/23/24 12:07 Height 5 ft 3 in Weight 217 lb BMI 38.4 BP 122/80 Blood Pressure Location Lt brachial Position Sitting Pulse 61 Pulse Source Pulse Oximeter Pulse Oximetry (%) 96 Oxygen Delivery Method Room Air Intake Visit Reasons: 3 mon F/u Allergies No Known Allergies [No Known Allergies*] Allergy (Verified 03/23/24 12:08) Medication List - Last Reconciled 03/23/24 by Suzette Campbell MD acetaminophen 1,000 mg (2 x 500 mg) PO Q6H PRN albuterol sulfate 90 mcg/actuation (Ventolin HFA) 2 puffs inhalation QID PRN atorvastatin 20 mg PO DAILY cetirizine 10 mg PO DAILY diclofenac sodium 1% 2 grams topical QID famotidine 40 mg PO BEDTIME hydroxyzine HCl 75 mg PO BEDTIME PRN oxcarbazepine 150 mg PO BID pantoprazole 40 mg PO DAILY prazosin 1 mg PO BID sertraline 2 tabs PO DAILY tamsulosin 0.4 mg PO DAILY Tobacco use date assessed: 03/23/24 Dental Screening Dental Screen Date: 03/23/24 Did you have a dental visit in the last 12 months?: Yes Did you have a dental problem in the last 6 months where you did not have access to dental care?: No Was dental information given to patient?: Patient has dentist HPI 3 thu F/u HPI Details Chief Complaint Regular follow-up. Assessment and Plan 54-year-old male with a history of chronic PTSD GERD allergic rhinitis, vertigo, tinea corporis, BPH, presenting with symptoms of drowsiness and vertigo, likely secondary to current medication regimen. The patient is on multiple medications, including hydroxyzine at a high dose, which is contributing to his morning drowsiness. Dizziness episodes consistent with vertigo are suspected but not associated with medication changes. Kidney function remains stable, and blood pressure is well controlled. Patient is seeing psych med prescriber. 1. Hyperlipidemia Continue atorvastatin as prescribed, no changes indicated at this time. Monitor lipid levels at follow-up appointments. 2. Insomnia Hydroxyzine at bedtime is currently prescribed at 75 mg. Consider assessing the dosage given the morning drowsiness. Alternative insomnia management strategies to be considered if side effects persist. 3. Chronic Post-Traumatic Stress Disorder Ptsd Continue sertraline and prazosin for PTSD management. Follow-up with the psychiatrist as per schedule. Monitor mental health status and adjust as necessary in collaboration with mental health services. 4. Gastroesophageal Reflux Disease Gerd Continue famotidine and pantoprazole as per current regimen to manage symptoms effectively. 5. Allergic Rhinitis Continue current management with citalizine for allergies. No changes necessary based on current review. 6. Diet-controlled diabetic Problem List - Hyperlipidemia - Allergic Rhinitis - Gastroesophageal Reflux Disease (GERD) - Chronic Post-Traumatic Stress Disorder (PTSD) - Insomnia - Vertigo - diet-controlled diabetic Patient Instructions - Continue taking prescribed medications as directed. - Monitor any changes in symptoms, particularly drowsiness and vertigo, and report if they persist or worsen. - Follow up with your psychiatrist as planned for chronic PTSD management. - continued diet-controlled for diabetes management. - Plan for a follow-up visit in four months for routine evaluation and medication review. Follow-up 4 months [facility] Medical History Tubular adenoma Cocaine abuse Opioid abuse Chronic post-traumatic stress disorder (PTSD) Adjustment disorder with mixed disturbance of emotions and conduct Hyperlipidemia GERD (gastroesophageal reflux disease) Depression Surgical History History of bariatric surgery Social History Household Members: None Housing: Apartment Do you presently have visiting nurse or other home services: No Alcohol intake: unknown Patient Tobacco Use Status: Current everyday Tobacco user Tobacco use type: Cigarette Cigarette Packs Per Day: 1 Cigarettes Per Day: 20.0 Years Smoked: 40 e-Cigarette/Vaping Use: Never Used Second Hand Smoke Exposure: No Substance Use Type: Crack/Cocaine and Marijuana service: No Sexual orientation: Straight/Heterosexual Cognitive needs: No Hearing needs: No Vision needs: No Questionnaire PHQ-9 Over the last 2 weeks, how often have you been bothered by any of the following problems? 1. Little interest or pleasure in doing things: not at all 2. Feeling down, depressed, or hopeless: not at all 3. Trouble falling or staying asleep, or sleeping too much: more than half the days 4. Feeling tired or having little energy: more than half the days 5. Poor appetite or overeating: more than half the days 6. Feeling bad about yourself - or that you are a failure or have let yourself or your family down: several days 7. Trouble concentrating on things, such as reading the newspaper or watching television: more than half the days 8. Moving or speaking so slowly that other people could have noticed. Or the opposite - being so fidgety or restless that you have been moving around a lot more than usual: several days 9. Thoughts that you would be better off or of hurting yourself in some way: several days Total score: 11 Depression Screening Interpretation: Positive Depression Screening Follow-up: Existing condition and In treatment Depression Screening Done: Yes 61063 - PHQ-9 Billing: Yes Source: Developed by Drs. Guido Madsen, Tamiko Parikh, Ted Mccain and colleagues, with an educational wander from [employer]. Thrive Questionnaire Date Thrive assessed: 03/23/24 I am a: Patient What is your living situation today?: I choose not to answer this question Within the past 12 months, did the food you bought not last and you didn't have the money to get more?: I choose not to answer this question Within the past 12 months, did you worry whether your food would run out before you got money to buy more?: I choose not to answer this question Do you have trouble paying for medicines?: I choose not to answer this question Do you have trouble getting transportation to medical appointments?: I choose not to answer this question Do you have trouble paying your heating and electricity bill?: I choose not to answer this question Do you have trouble taking care of your child, family member or friend?: I choose not to answer this question Do you have trouble with day-to-day activities such as bathing, preparing meals, shopping, managing finances, etc.?: I choose not to answer this question Are you currently unemployed and looking for a job?: I choose not to answer this question Are you interested in more education?: I choose not to answer this question Please select the resources that you would like help with: None Currently or been in a relationship where the following occur: I choose not to answer THRIVE Score: 0 AUDIT C Alcohol Use Questionnaire (AUDIT-C) 1. How often do you have a drink containing alcohol?: Never 3. How often do you have six or more drinks on one occasion?: Never Total Score: 0 Score Reviewed/Action Taken: Yes RENATE-7 AMB Questionnaire RENATE-7 Date RENATE - 7 assessed: 12/11/23 Source: Developed by Drs. Guido Madsen, Tamiko Parikh, Ted Mccain and colleagues, with an educational wander from [employer]. Review of Systems Const Denies chills and Denies fever(s) ENT Denies epistaxis and Denies nasal discharge Card Denies chest pain Resp Denies chest congestion, Denies cough and Denies hemoptysis GI Denies diarrhea and Denies nausea Skin/Breast Denies rash Neuro Reports no additional complaints Psych Reports no additional complaints Endo Reports no additional complaints Physical exam (Primary Care) Vital Signs: Last Vital Signs Pulse 61 03/23/24 12:07 BP 122/80 03/23/24 12:07 Pulse Ox 96 03/23/24 12:07 Oxygen Delivery Method Room Air 03/23/24 12:07 BMI result Body Mass Index 38.4 Tobacco/Smoking Status: Tobacco use Status Tobacco use date assessed 03/23/24 03/23/24 12:09 Patient Tobacco Use Status Current everyday Tobacco 03/23/24 12:09 Tobacco use type Cigarette 03/23/24 12:09 e-Cigarette/Vaping Use Never Used 03/23/24 12:09 PHQ-9: PHQ-9 Score PHQ-9: Total score 11 03/23/24 12:09 Depression Screening Interpretation: Positive Depression Screening Follow-up: Existing condition and In treatment Thrive Assessment: Date of Thrive Assessment Date Thrive assessed 03/23/24 03/23/24 12:09 Currently or been in a relationship where the following occur: I choose not to answer Const General: cooperative, comfortable and no acute distress Orientation/consciousness: patient oriented x3 HENMT Head: Yes normocephalic Eyes General: appearance normal, both eyes and all related structures Neck Neck: Yes supple Resp Effort & Inspection: normal respiratory effort, no cough and no stridor Cardio Rhythm: regular rhythm Heart sounds: S1 normal heart sound present and S2 normal heart sound present Skin General skin exam: turgor normal Neuro General: patient oriented x3, tone normal and moves all extremities Extrem Right lower extremity: no edema Left lower extremity: no edema Coding Level of Care Code Est Pt Level 4 (25665) Complex EM visit Add On G2211 Diagnoses Diet-controlled diabetes mellitus E11.9 Gastroesophageal reflux disease without esophagitis K21.9 Esophagitis presence: without esophagitis Tinea corporis B35.4 Lipid disorder E78.9 Chronic post-traumatic stress disorder (PTSD) F43.12 Insomnia, unspecified type G47.00 Insomnia type: unspecified Vertigo R42 Class 2 severe obesity due to excess calories with serious comorbidity and body mass index (BMI) of 38.0 to 38.9 in adult E66.812; E66.01; Z68.38 Obesity classification: adult class 2 (BMI 35 - 39.9) Serious obesity comorbidity presence: with serious comorbidity Body mass index: BMI 38.0-38.9 Additional Codes PHQ-9 - 78931 - PHQ-9 Billing: Yes ([id number]) Assessment & Plan Assessment & Plan (1) Diet-controlled diabetes mellitus: Code(s): E11.9 - Type 2 diabetes mellitus without complications Category: Medical (2) GERD (gastroesophageal reflux disease): Code(s): K21.9 - Gastro-esophageal reflux disease without esophagitis Category: Medical Qualifiers: Esophagitis presence: without esophagitis Qualified Code(s): K21.9 - Gastro-esophageal reflux disease without esophagitis (3) Tinea corporis: Code(s): B35.4 - Tinea corporis Category: Medical (4) Lipid disorder: Code(s): E78.9 - Disorder of lipoprotein metabolism, unspecified Category: Medical (5) Chronic post-traumatic stress disorder (PTSD): Code(s): F43.12 - Post-traumatic stress disorder, chronic Category: Medical (6) Insomnia: Code(s): G47.00 - Insomnia, unspecified Category: Medical Qualifiers: Insomnia type: unspecified Qualified Code(s): G47.00 - Insomnia, unspecified (7) Vertigo: Code(s): R42 - Dizziness and giddiness Category: Medical (8) Obesity due to excess calories: Code(s): E66.09 - Other obesity due to excess calories Category: Medical Qualifiers: Obesity classification: adult class 2 (BMI 35 - 39.9) Serious obesity comorbidity presence: with serious comorbidity Body mass index: BMI 38.0-38.9 Qualified Code(s): E66.812 - Obesity, class 2; E66.01 - Morbid (severe) obesity due to excess calories; Z68.38 - Body mass index [BMI] 38.0-38.9, adult Plan Chief Complaint Regular follow-up. Assessment and Plan 54-year-old male with a history of chronic PTSD GERD allergic rhinitis, vertigo, tinea corporis, BPH, presenting with symptoms of drowsiness and vertigo, likely secondary to current medication regimen. The patient is on multiple medications, including hydroxyzine at a high dose, which is contributing to his morning drowsiness. Dizziness episodes consistent with vertigo are suspected but not associated with medication changes. Kidney function remains stable, and blood pressure is well controlled. Patient is seeing psych med prescriber. 1. Hyperlipidemia Continue atorvastatin as prescribed, no changes indicated at this time. Monitor lipid levels at follow-up appointments. 2. Insomnia Hydroxyzine at bedtime is currently prescribed at 75 mg. Consider assessing the dosage given the morning drowsiness. Alternative insomnia management strategies to be considered if side effects persist. 3. Chronic Post-Traumatic Stress Disorder Ptsd Continue sertraline and prazosin for PTSD management. Follow-up with the psychiatrist as per schedule. Monitor mental health status and adjust as necessary in collaboration with mental health services. 4. Gastroesophageal Reflux Disease Gerd Continue famotidine and pantoprazole as per current regimen to manage symptoms effectively. 5. Allergic Rhinitis Continue current management with citalizine for allergies. No changes necessary based on current review. 6. Diet-controlled diabetic Problem List - Hyperlipidemia - Allergic Rhinitis - Gastroesophageal Reflux Disease (GERD) - Chronic Post-Traumatic Stress Disorder (PTSD) - Insomnia - Vertigo - diet-controlled diabetic - tinea corporis stable with the help cream refills sent - obesity patient is having difficulty losing weight Patient Instructions - Continue taking prescribed medications as directed. - Monitor any changes in symptoms, particularly drowsiness and vertigo, and report if they persist or worsen. - Follow up with your psychiatrist as planned for chronic PTSD management. - continued diet-controlled for diabetes management. - Plan for a follow-up visit in four months for routine evaluation and medication review. Follow-up 4 months Medications: Refilled atorvastatin 20 mg PO DAILY 90 tabs 1RF clotrimazole-betamethasone 1-0.05 % 1 appl topical ONCE 45 grams 3RF rash 30 days
== END 2024-03-23 12:26 | disposition home or self-care (01) ==
PROVIDERS: PCP Internal Medicine; Visit Provider Internal Medicine
DX: E11.9 Type 2 diabetes mellitus without complications (principal); K21.9 Gastro-esophageal reflux disease without esophagitis; E66.01 Morbid (severe) obesity due to excess calories; Z68.38 Body mass index [BMI] 38.0-38.9, adult; B35.4 Tinea corporis; E78.9 Disorder of lipoprotein metabolism, unspecified; F43.12 Post-traumatic stress disorder, chronic; G47.00 Insomnia, unspecified; R42 Dizziness and giddiness

== ENCOUNTER → 2024-03-23 11:51 | Outpatient (BNVA) | payer OTHER, SELFPAY | PROVIDERS: PCP Internal Medicine; Visit Provider Internal Medicine | DX: E11.9 Type 2 diabetes mellitus without complications (principal); K21.9 Gastro-esophageal reflux disease without esophagitis; B35.4 Tinea corporis; E78.9 Disorder of lipoprotein metabolism, unspecified; G47.00 Insomnia, unspecified; R42 Dizziness and giddiness; E66.01 Morbid (severe) obesity due to excess calories; Z68.38 Body mass index [BMI] 38.0-38.9, adult; Z71.3 Dietary counseling and surveillance | CPT/HCPCS: 96127; 99212 ==

== ENCOUNTER 2024-07-22 10:48 | Outpatient (AMB) | payer OTHER, SELFPAY ==
[2024-07-22 10:50] VITALS: BP 136/82; PULSE 74; O2SAT 95; BMI 38.5
--- NOTE | 2024-07-22 10:50 | MHC.PC.OV ---
Vital Signs 07/22/24 10:50 Height 5 ft 3 in Weight 217 lb 6 oz BMI 38.5 BP 136/82 Blood Pressure Location Lt brachial Position Sitting Pulse 74 Pulse Source Pulse Oximeter Pulse Oximetry (%) 95 Oxygen Delivery Method Room Air Intake Visit Reasons: 4m follow up Allergies No Known Allergies [No Known Allergies*] Allergy (Verified 07/22/24 10:51) Medication List - Last Reconciled 07/22/24 by Suzette Campbell MD acetaminophen 1,000 mg (2 x 500 mg) PO Q6H PRN albuterol sulfate 90 mcg/actuation (Ventolin HFA) 2 puffs inhalation QID PRN atorvastatin 20 mg PO DAILY cetirizine 10 mg PO DAILY clotrimazole-betamethasone 1-0.05 % 1 appl topical ONCE 30 days diclofenac sodium 1% 2 grams topical QID famotidine 40 mg PO BEDTIME hydroxyzine HCl 75 mg PO BEDTIME PRN oxcarbazepine 150 mg PO BID pantoprazole 40 mg PO DAILY prazosin 1 mg PO BID sertraline 2 tabs PO DAILY tamsulosin 0.4 mg PO DAILY Tobacco use date assessed: 07/22/24 Dental Screening Dental Screen Date: 07/22/24 Did you have a dental visit in the last 12 months?: Yes Did you have a dental problem in the last 6 months where you did not have access to dental care?: No Was dental information given to patient?: Patient has dentist HPI 4m follow up HPI Details Regular follow-up appointment 54-year-old male with a history of chronic PTSD GERD allergic rhinitis, vertigo, tinea corporis, BPH, Patient is seeing psych med prescriber. All his psychiatric medications, recently Topamax and Abilify has been added as per patient presenting with knee pain. - Reports persistent knee pain suspected to be due to arthritis. - Previous x-rays have been performed. - The condition appears to be worsened by activity. - he also have a osteoarthritis bilateral hands BMI is elevated to 38.5 need to lose weight Medications - Atorvastatin for hyperlipidemia - Topamax (topiramate) for psychiatric conditions - Hydroxyzine for anxiety - Oxcarbazepine for mood stabilization - Prazosin for nightmares associated with PTSD - Sertraline for depression - Aripiprazole (Abilify) for psychiatric conditions - Tamsulosin for benign prostatic hyperplasia - Pantoprazole for GERD - Famotidine for GERD - Cetirizine for allergies - Albuterol for asthma - Continuation of constipation medication Problem List - Osteoarthritis - Anemia - Hemorrhoids - diabetes - Hyperlipidemia - Constipation - Anxiety - Depression Diagnostic results - Labs: Hemoglobin at 13.2, indicating slight anemia [place] of Care - Patient also under the care of a psychiatrist Patient Instructions - Continue current constipation treatment. - Avoid NSAIDs due to potential gastrointestinal issues; use Tylenol for arthritis pain. - Schedule x-ray of the knees. - Repeat blood tests to monitor hemoglobin A1c and anemia. - Follow lifestyle adjustments to manage diabetes and hyperlipidemia. - Return for follow-up in four months. Review of Systems General: No fever no chills neurological: No headaches no dizziness ear nose throat: No sore throat no hearing difficulty no ear pain cardiovascular: No syncope, no chest pain, no palpitations gastrointestinal: No nausea vomiting or diarrhea endocrine: No polyuria polydipsia no heat intolerance genitourinary: No dysuria skin: No new complaints Physical Exam general: No acute distress HEENT: No acute findings neck: Supple respiratory system: Lungs are clear, able to talk in full sentences, no audible wheeze, no stridor cardiovascular: S1-S2, heart is fine gastrointestinal: No pain, hemorrhoids present extremities: Pain in knees, arthritis suspected 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: Alert awake oriented x3 motor sensory intact skin: Normal turgor PFSH Medical History Tubular adenoma Cocaine abuse Opioid abuse Chronic post-traumatic stress disorder (PTSD) Adjustment disorder with mixed disturbance of emotions and conduct Hyperlipidemia GERD (gastroesophageal reflux disease) Depression Surgical History History of bariatric surgery Social History Household Members: None Housing: Apartment Do you presently have visiting nurse or other home services: No Alcohol intake: unknown Patient Tobacco Use Status: Current everyday Tobacco user Tobacco use type: Cigarette Cigarette Packs Per Day: 1 Cigarettes Per Day: 20.0 Years Smoked: 40 e-Cigarette/Vaping Use: Never Used Second Hand Smoke Exposure: No Substance Use Type: Crack/Cocaine and Marijuana service: No Sexual orientation: Straight/Heterosexual Cognitive needs: No Hearing needs: No Vision needs: No Questionnaire PHQ-9 Over the last 2 weeks, how often have you been bothered by any of the following problems? 62822 - PHQ-9 Billing: Patient declined-do not bill Source: Developed by Drs. Guido Madsen, Tamiko Parikh, Ted Mccain and colleagues, with an educational wander from [employer]. Thrive Questionnaire Date Thrive assessed: 07/22/24 AUDIT C Alcohol Use Questionnaire (AUDIT-C) 1. How often do you have a drink containing alcohol?: Never 3. How often do you have six or more drinks on one occasion?: Never Total Score: 0 Score Reviewed/Action Taken: Yes RENATE-7 AMB Questionnaire RENATE-7 Date RENATE - 7 assessed: 07/22/24 Feeling nervous, anxious, or on edge: 0 = Not at all Not being able to stop or control worryin = Not at all Worrying too much about different things: 0 = Not at all Trouble relaxin = Not at all Being so restless that it is hard to sit still: 0 = Not at all Becoming easily annoyed or irritable: 0 = Not at all Feeling afraid as if something awful might happen: 0 = Not at all Total RENATE-7 score (0-4 normal; 5-9 mild; 10-14 moderate; 15-21 severe): 0 Source: Developed by Drs. Guido Madsen, Tamiko Parikh, Ted Mccain and colleagues, with an educational wander from [employer]. RENATE-7 Assessment Billing RENATE-7 Assessment Tool: RENATE-7 Assessment 82339 Physical exam (Primary Care) Vital Signs: Last Vital Signs Pulse 74 07/22/24 10:50 BP 136/82 07/22/24 10:50 Pulse Ox 95 07/22/24 10:50 Oxygen Delivery Method Room Air 07/22/24 10:50 BMI result Body Mass Index 38.5 Tobacco/Smoking Status: Tobacco use Status Tobacco use date assessed 07/22/24 07/22/24 10:58 Patient Tobacco Use Status Current everyday Tobacco 07/22/24 10:58 Tobacco use type Cigarette 07/22/24 10:58 e-Cigarette/Vaping Use Never Used 07/22/24 10:58 Thrive Assessment: Date of Thrive Assessment Date Thrive assessed 07/22/24 07/22/24 10:58 Coding Level of Care Code Est Pt Level 4 (50182) Complex EM visit Add On G2211 Diagnoses Diet-controlled diabetes mellitus E11.9 Chronic pain of both knees M25.561; M25.562; G89.29 Chronicity: chronic Lipid disorder E78.9 Primary osteoarthritis of both hands M19.041; M19.042 Osteoarthritis type: primary Gastroesophageal reflux disease without esophagitis K21.9 Esophagitis presence: without esophagitis Class 2 severe obesity due to excess calories with serious comorbidity and body mass index (BMI) of 38.0 to 38.9 in adult E66.812; E66.01; Z68.38 Body mass index: BMI 38.0-38.9 Obesity classification: adult class 2 (BMI 35 - 39.9) Serious obesity comorbidity presence: with serious comorbidity Chronic post-traumatic stress disorder (PTSD) F43.12 Additional Codes RENATE-7 Assessment Billing - RENATE-7 Assessment Tool: RENATE-7 Assessment 42408 ([id number]) Assessment & Plan Assessment & Plan (1) Diet-controlled diabetes mellitus: Code(s): E11.9 - Type 2 diabetes mellitus without complications Category: Medical (2) Knee pain, bilateral: Code(s): M25.561 - Pain in right knee; M25.562 - Pain in left knee Category: Medical Qualifiers: Chronicity: chronic Qualified Code(s): M25.561 - Pain in right knee; M25.562 - Pain in left knee; G89.29 - Other chronic pain (3) Lipid disorder: Code(s): E78.9 - Disorder of lipoprotein metabolism, unspecified Category: Medical (4) Osteoarthritis of hands, bilateral: Code(s): M19.041 - Primary osteoarthritis, right hand; M19.042 - Primary osteoarthritis, left hand Category: Medical Qualifiers: Osteoarthritis type: primary Qualified Code(s): M19.041 - Primary osteoarthritis, right hand; M19.042 - Primary osteoarthritis, left hand (5) GERD (gastroesophageal reflux disease): Code(s): K21.9 - Gastro-esophageal reflux disease without esophagitis Category: Medical Qualifiers: Esophagitis presence: without esophagitis Qualified Code(s): K21.9 - Gastro-esophageal reflux disease without esophagitis (6) Obesity due to excess calories: Code(s): E66.09 - Other obesity due to excess calories Category: Medical Qualifiers: Body mass index: BMI 38.0-38.9 Obesity classification: adult class 2 (BMI 35 - 39.9) Serious obesity comorbidity presence: with serious comorbidity Qualified Code(s): E66.812 - Obesity, class 2; E66.01 - Morbid (severe) obesity due to excess calories; Z68.38 - Body mass index [BMI] 38.0-38.9, adult (7) Chronic post-traumatic stress disorder (PTSD): Code(s): F43.12 - Post-traumatic stress disorder, chronic Category: Medical Plan Regular follow-up appointment 54-year-old male with a history of chronic PTSD GERD allergic rhinitis, vertigo, tinea corporis, BPH, Patient is seeing psych med prescriber. All his psychiatric medications, recently Topamax and Abilify has been added as per patient presenting with knee pain. - Reports persistent knee pain suspected to be due to arthritis. - Previous x-rays have been performed. - The condition appears to be worsened by activity. - he also have a osteoarthritis bilateral hands BMI is elevated to 38.5 need to lose weight Medications - Atorvastatin for hyperlipidemia - Topamax (topiramate) for psychiatric conditions - Hydroxyzine for anxiety - Oxcarbazepine for mood stabilization - Prazosin for nightmares associated with PTSD - Sertraline for depression - Aripiprazole (Abilify) for psychiatric conditions - Tamsulosin for benign prostatic hyperplasia - Pantoprazole for GERD - Famotidine for GERD - Cetirizine for allergies - Albuterol for asthma - Continuation of constipation medication Problem List - Osteoarthritis - Anemia - Hemorrhoids - diabetes - Hyperlipidemia - Constipation - Anxiety - Depression Diagnostic results - Labs: Hemoglobin at 13.2, indicating slight anemia [place] of Care - Patient also under the care of a psychiatrist Patient Instructions - Continue current constipation treatment. - Avoid NSAIDs due to potential gastrointestinal issues; use Tylenol for arthritis pain. - Schedule x-ray of the knees. - Repeat blood tests to monitor hemoglobin A1c and anemia. - Follow lifestyle adjustments to manage diabetes and hyperlipidemia. - Return for follow-up in four months. Orders: Orders XR knee RT 2V Today M25.561 - Pain in right knee, M25.562 - Pain in left knee XR knee LT 2V Today M25.561 - Pain in right knee, M25.562 - Pain in left knee Complete Blood Count Auto Diff Today E11.9 - Type 2 diabetes mellitus without complications, E66.01 - Morbid (severe) obesity due to excess calories, E66.812 - Obesity, class 2, E78.9 - Disorder of lipoprotein metabolism, unspecified, F43.12 - Post-traumatic stress disorder, chronic, K21.9 - Gastro-esophageal reflux disease without esophagitis, M19.041 - Primary osteoarthritis, right hand, M19.042 - Primary osteoarthritis, left hand, M25.561 - Pain in right knee, M25.562 - Pain in left knee, Z68.38 - Body mass index [BMI] 38.0-38.9, adult Comprehensive [place]. Panel Fast Today E11.9 - Type 2 diabetes mellitus without complications, E66.01 - Morbid (severe) obesity due to excess calories, E66.812 - Obesity, class 2, E78.9 - Disorder of lipoprotein metabolism, unspecified, F43.12 - Post-traumatic stress disorder, chronic, K21.9 - Gastro-esophageal reflux disease without esophagitis, M19.041 - Primary osteoarthritis, right hand, M19.042 - Primary osteoarthritis, left hand, M25.561 - Pain in right knee, M25.562 - Pain in left knee, Z68.38 - Body mass index [BMI] 38.0-38.9, adult Hemoglobin A1c Today E11.9 - Type 2 diabetes mellitus without complications, E66.01 - Morbid (severe) obesity due to excess calories, E66.812 - Obesity, class 2, E78.9 - Disorder of lipoprotein metabolism, unspecified, F43.12 - Post-traumatic stress disorder, chronic, K21.9 - Gastro-esophageal reflux disease without esophagitis, M19.041 - Primary osteoarthritis, right hand, M19.042 - Primary osteoarthritis, left hand, M25.561 - Pain in right knee, M25.562 - Pain in left knee, Z68.38 - Body mass index [BMI] 38.0-38.9, adult Vitamin B12 Today E11.9 - Type 2 diabetes mellitus without complications, E66.01 - Morbid (severe) obesity due to excess calories, E66.812 - Obesity, class 2, E78.9 - Disorder of lipoprotein metabolism, unspecified, F43.12 - Post-traumatic stress disorder, chronic, K21.9 - Gastro-esophageal reflux disease without esophagitis, M19.041 - Primary osteoarthritis, right hand, M19.042 - Primary osteoarthritis, left hand, M25.561 - Pain in right knee, M25.562 - Pain in left knee, Z68.38 - Body mass index [BMI] 38.0-38.9, adult Ferritin Today E11.9 - Type 2 diabetes mellitus without complications, E66.01 - Morbid (severe) obesity due to excess calories, E66.812 - Obesity, class 2, E78.9 - Disorder of lipoprotein metabolism, unspecified, F43.12 - Post-traumatic stress disorder, chronic, K21.9 - Gastro-esophageal reflux disease without esophagitis, M19.041 - Primary osteoarthritis, right hand, M19.042 - Primary osteoarthritis, left hand, M25.561 - Pain in right knee, M25.562 - Pain in left knee, Z68.38 - Body mass index [BMI] 38.0-38.9, adult TSH reflex Free T4 Today E11.9 - Type 2 diabetes mellitus without complications, E66.01 - Morbid (severe) obesity due to excess calories, E66.812 - Obesity, class 2, E78.9 - Disorder of lipoprotein metabolism, unspecified, F43.12 - Post-traumatic stress disorder, chronic, K21.9 - Gastro-esophageal reflux disease without esophagitis, M19.041 - Primary osteoarthritis, right hand, M19.042 - Primary osteoarthritis, left hand, M25.561 - Pain in right knee, M25.562 - Pain in left knee, Z68.38 - Body mass index [BMI] 38.0-38.9, adult Lipid Panel Today E11.9 - Type 2 diabetes mellitus without complications, E66.01 - Morbid (severe) obesity due to excess calories, E66.812 - Obesity, class 2, E78.9 - Disorder of lipoprotein metabolism, unspecified, F43.12 - Post-traumatic stress disorder, chronic, K21.9 - Gastro-esophageal reflux disease without esophagitis, M19.041 - Primary osteoarthritis, right hand, M19.042 - Primary osteoarthritis, left hand, M25.561 - Pain in right knee, M25.562 - Pain in left knee, Z68.38 - Body mass index [BMI] 38.0-38.9, adult Vitamin D 25-OH (D2 and D3) Today E11.9 - Type 2 diabetes mellitus without complications, E66.01 - Morbid (severe) obesity due to excess calories, E66.812 - Obesity, class 2, E78.9 - Disorder of lipoprotein metabolism, unspecified, F43.12 - Post-traumatic stress disorder, chronic, K21.9 - Gastro-esophageal reflux disease without esophagitis, M19.041 - Primary osteoarthritis, right hand, M19.042 - Primary osteoarthritis, left hand, M25.561 - Pain in right knee, M25.562 - Pain in left knee, Z68.38 - Body mass index [BMI] 38.0-38.9, adult Medications: Refilled pantoprazole 40 mg PO DAILY 60 tabs 2RF
== END 2024-07-22 11:07 | disposition home or self-care (01) ==
LOC: HO.HMCC 10:49
PROVIDERS: PCP Internal Medicine; Visit Provider Internal Medicine
DX: E11.9 Type 2 diabetes mellitus without complications (principal); M25.561 Pain in right knee; E66.01 Morbid (severe) obesity due to excess calories; Z68.38 Body mass index [BMI] 38.0-38.9, adult; M25.562 Pain in left knee; G89.29 Other chronic pain; E78.9 Disorder of lipoprotein metabolism, unspecified; M19.041 Primary osteoarthritis, right hand; M19.042 Primary osteoarthritis, left hand; K21.9 Gastro-esophageal reflux disease without esophagitis; F43.12 Post-traumatic stress disorder, chronic

== ENCOUNTER → 2024-07-22 10:48 | Outpatient (BNVA) | payer OTHER, SELFPAY | PROVIDERS: PCP Internal Medicine; Visit Provider Internal Medicine | DX: E11.9 Type 2 diabetes mellitus without complications (principal); M25.561 Pain in right knee; M25.562 Pain in left knee; G89.29 Other chronic pain; E78.9 Disorder of lipoprotein metabolism, unspecified; M19.041 Primary osteoarthritis, right hand; M19.042 Primary osteoarthritis, left hand; K21.9 Gastro-esophageal reflux disease without esophagitis; E66.01 Morbid (severe) obesity due to excess calories; Z68.38 Body mass index [BMI] 38.0-38.9, adult; F43.12 Post-traumatic stress disorder, chronic; Z71.3 Dietary counseling and surveillance | CPT/HCPCS: 96127; 99212 ==

== ENCOUNTER 2024-09-06 07:36 | Outpatient (REF) | payer OTHER, SELFPAY ==
--- OUTSIDE RECORDS SUMMARY | 2024-09-06 07:38 | XMS_ITS | Clinical Summary ---
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 Name Role Phone Eunice Worthington NP Primary Care Provider [phone] Allergies No known active allergies Medications acetaminophen (TYLENOL 8 HOUR) 650 mg 8 hr tablet 2 TABLETS EVERY 8 HOURS NEEDED Active atenoloL (TENORMIN) 50 mg tablet 1 TABLET DAILY Active chlorproMAZINE (THORAZINE) 100 mg tablet 1 TABLET EVERY 6 HRS NEEDED FOR PAIN Active clonazePAM (KlonoPIN) 1 mg tablet 1 TABLET at bedtime Active cyanocobalamin (VIT B-12) 1,000 mcg tablet extended release ER tablet 1 TABLET DAILY Active cyclobenzaprine (FLEXERIL) 10 mg tablet 1 TABLET 3 TIMES DAILY Active FLUTICASONE PROPIONATE INHL 2 SPRAYS DAILY Active FOLIC ACID ORAL DAILY Acti ve glipiZIDE (GLUCOTROL) 10 mg tablet 1 TABLET TWICE DAILY BEFORE A MEAL Active hydroCHLOROthia zide (HYDRODIURIL) 25 mg tablet 1 TABLET DAILY Active hydrOXYzine pamoate (VISTARIL) 50 mg capsule 1 CAPSULE 4 TIMES DAILY NEEDED Active INSULIN ASPART U-100 SUBQ INSULIN ASPART SC: VARIES BY DAY Active lamoTRIgine (LaMICtal) 200 mg tablet 1 TABLET DAILY Active lisinopriL (PRINIVIL,ZESTR IL) 20 mg tablet 1 TABLET DAILY Active metFORMIN (GLUCOPHAGE) 1,000 mg tablet 1 TABLET TWICE DAILY WITH MEALS Active oxaprozin (DAYPRO) 600 mg tablet 1 TABLETS DAILY Active pantoprazole (PROTONIX) 40 mg EC tablet 1 TABLET DAILY Active pioglitazone (ACTOS) 45 mg tablet 1 TABLET AT BEDTIME Active QUEtiapine (SEROquel) 100 mg tablet 1 TABLET AT BEDTIME Active risperiDONE (RisperDAL) 1 mg tablet 1 TABLET TWICE DAILY Active sertraline (ZOLOFT) 100 mg tablet 1 TABLET DAILY Active SIMETHICONE ORAL EVERY 6 HOURS PRN PAIN Active traMADoL (ULTRAM) 50 mg tablet 1 TABLET EVERY 4 TO 6 HOURS NEEDED Active tuberculin 5 tub. unit /0.1 mL injection None Entered Acti ve Active Problems Problem Noted Date Diagnosed Date Depression 03/28/2024 DM (diabetes mellitus), type 2 with neurological complications ([facility] V24, [facility] V28) 03/28/2024 Hyperlipidemia 03/28/2024 Hypertension 03/28/2024 GUME (obstructive sleep apnea) 03/28/2024 Class 1 obesity due to exces s calories with serious comorbidity and body mass index (BMI) of 34.0 to 34.9 in adult 03/28/2024 Intestinal malabsorption following gastrectomy 1 05/03/2018 Diabetic polyneuropathy ([facility] V24, [facility] V2 8) 10/21/2018 GERD (gastroesophageal reflux disease) 9 Osteoarthritis 11/07/2009 Overview (03/28/2024): Lumbar Spine Surgical History Surgery Date Site/Laterality Comments KNEE ARTHROSCOPY W/ MENISCAL REPAIR 09/21/2009 Right PROCEDURE: ME ARTHROSCOPY KNEE W/MENISCUS RPR MEDIAL/LATERAL Medical History Medical History Date Comments Depression DX:Depression GUME (obstructive sleep apnea) DX :GUME (obstructive sleep apnea) Hypertension DX:Hypertension Osteoarthritis 11/07/2009 DX:Osteoarthriti s; COMMENT: Lumbar Spine Hyperlipidemia DX:Hyperlipidemi a GERD (gastroesophageal reflu x disease) 10/21/2018 DX:GERD (gastroesophageal re flux disease) DM (diabetes mellitus), type 2 with neurological complications ([facility] V24, [facility] V28) DX:DM (diabetes mellitus), t ype 2 with neurological complications ([facility]) Class 3 severe obesity due t o excess calories with serious comorbidity and body mass index (BMI) of 40.0 to 44.9 in adult ([facility] V24, [facility] V28) 03/11/2018 DX:Class 3 severe obesity due to excess calories with serious comorbidity and body mass index (BMI) of 40.0 to 44.9 in adult ([facility]) Diabetic polyneuropathy ([facility] /HCC V24, [facility]/HCC V28) 10/21/2018 DX:Diabetic polyneuropathy ( [facility]) Social History Tobacco Use Types Packs/Day Years Used Date Smoking Tobacco: Former Cigarettes Smokeless Tobacco: Never Alcohol Use Standard Drinks/Week Comments No 0 (1 standard drink = 0.6 oz pur e alcohol) Sex and Gender Information Value Date Recorded Sex Assigned at Not on file Legal Sex Male 2:56 AM EST Gender Identity Not on file Sexual Orientation Not on file Obstetrics History Plan of Treatment Health Maintenance Due Date Last Done Comments Diabetes: Annual Foot Exam 1982 Diabetes: Annual Retina Eye Exam 1982 DTaP,Tdap,and Td Vaccines (1 - Tdap) 1991 Hepatitis B Vaccines (1 of 3 - 19+ 3-dose series) 1991 Pneumococcal Vaccine: 50+ Ye ars (1 of 2 - PCV) 1991 Pneumococcal Vaccine: Pediat rics (0 to 5 Years) and At-Risk Patients (6 to 64 Years) (1 of 2 - PCV) 1991 Diabetes: Annual GFR (Glomer ular Filtration Rate) 06/08/2020 06/08/2019 Zoster Vaccines (1 of 2) 2022 Colorectal Cancer Screening: Colonoscopy 03/30/2022 Depression Screening 03/30/2022 HIV Screening 03/30/2022 Hepatitis C Screening 03/30/2022 Social Influencers of Health Screening 03/30/2022 Diabetes: Annual Urine Albumin-Creatinine Ratio (uACR) 04/11/2022 Diabetes: Blood Sugar Contro l Test (HGBA1C) 04/11/2022 04/07/2018 Hypertension/CHF/CAD Annual BMP Blood Test 04/11/2022 06/08/2019 Cholesterol Screening (Lipid Panel) 04/07/2023 04/07/2018 COVID-19 Vaccine (2023-2 5 season) 2023 Influenza Vaccine (Season Ended) 2024 HIB Vaccines Aged Out No longer eligi ble based on patient's age to complete this topic HPV Vaccines Aged Out No longer eligi ble based on patient's age to complete this topic Hepatitis A Vaccines Aged Out No long er eligible based on patient's age to complete this topic IPV Vaccines Aged Out No longer eligi ble based on patient's age to complete this topic MMR Vaccines Aged Out No longer eligi ble based on patient's age to complete this topic Meningococcal ACWY Vaccine Aged Out N o longer eligible based on patient's age to complete this topic Meningococcal B Vaccine Aged Out No l onger eligible based on patient's age to complete this topic RSV Immunization Patients Un claudia 20 months Aged Out No longer eligible b ased on patient's age to complete this topic Varicella Vaccines Aged Out No longer eligible based on patient's age to complete this topic Procedures Procedure Name Priority Date/Time Associated Diagnosis Comments ANNUAL BMP BLOOD TEST Routine 06/08/2019 HEMOGLOBIN A1C Routine 04/07/2018 LIPID PANEL Routine 04/07/2018 from Last 3 Months or Most Recently Relevant to Health Maintenance Results * Annual BMP Blood Test (06/08/2019) Annual BMP Blood Test Abstracted [facility] Provider HEALTH MAINTENANCE Final Result * (ABNORMAL) Hemoglobin A1c (04/07/2018) Hemoglobin A1C 7.4(A) <=6.5 % Blood Venous blood specimen / Unknown Result [facility] Provider LAB BLOOD ORDERABLES Zeoy l Result * (ABNORMAL) Lipid panel (04/07/2018) LDL/HDL Ratio 3 0 - 4 Triglycerides 146 0 - 150 mg/dL Cholesterol 113 0 - 200 mg/dL HDL 33(A) >=40 mg/dL LDL Cholesterol 51 0 - 100 mg/dL Blood Venous blood specimen / Unknown [facility] Provider LAB BLOOD ORDERABLES Zoey l Result from Last 3 Months or Most Recently Relevant to Health Maintenance Insurance [id number] [place] [id number] [employer] Care Teams Rail Project Engineer Relationship Specialty Start Date End Date Eunice Worthington NP [address] [place] [address] PCP - General 09/23/18
[2024-09-06 10:12] LABS: MANUAL DIFF FLAG NO
[2024-09-06 10:24] LABS: Basophils Percent Auto 0.7 % (0-2); Eosinophils Absolute Auto 0.1 X10*3/uL (0.0-0.4); Hematocrit 37.4 % (42.0-52.0); Hemoglobin 12.8 g/dl (14.0-18.0); Imm Gran Abs Auto 0.02 X10*3/uL (0.00-0.03); Imm Gran Pct Auto 0.4 % (0.0-0.4); Lymphocytes Absolute Auto 1.5 X10*3/uL (1.2-4.9); Lymphocytes Percent Auto 25.9 % (20-40); Mean Corpuscular HGB Conc 34.2 g/dl (31.0-36.0); Mean Corpuscular Hemoglobin 28.8 pg (27.0-33.0); Mean Corpuscular Volume 84.2 fL (80.0-98.0); Mean Platelet Volume 11.6 fL (9.4-12.4); Monocytes Absolute Auto 0.5 X10*3/uL (0.1-1.2); Monocytes Percent Auto 9.1 % (2-11); Neutrophils Absolute Auto 3.5 x10*3/uL (2.0-8.3); Neutrophils Percent Auto 61.9 % (45-73); Platelet Count 204 X10*3/uL (160-400); Red Blood Count 4.44 X10*6/uL (4.60-5.80); Red Cell Distribution Width 14.1 % (11.0-16.0); White Blood Count 5.6 X10*3/uL (4.8-10.8)
[2024-09-06 10:34] LABS: Estimated Average Glucose 120 mg/dL; Hemoglobin A1C 134.1653 umol/L; Hemoglobin A1c % 5.8 % (<6.0); Total Hemoglobin (HGBA1C) 3362.1337 umol/L
[2024-09-06 11:06] LABS: Vitamin B12 376 pg/mL (200-900)
[2024-09-06 11:09] LABS: Alanine Aminotransferase 15 U/L (0-40); Albumin Level 4.2 g/dL (3.5-5.0); Anion Gap 13 (12-20); Aspartate Amino Transferase 28 U/L (5-37); Bilirubin Total 0.3 mg/dL (0.0-1.0); Blood Urea Nitrogen 21 mg/dL (9-16); Calcium 8.7 mg/dL (8.4-10.2); Carbon Dioxide 21 mmol/L (22-29); Chloride 112 mmol/L (96-108); Cholesterol 126 mg/dL (<200); Estimated Glomerular Filt Rate > 60; Glucose Fasting 111 mg/dL (60-99); HDL Cholesterol 43 mg/dL (>40); LDL Cholesterol Calculated 67 mg/dL (<100); Potassium 3.6 mmol/L (3.3-5.1); Sodium 142 mmol/L (135-145); Total Protein 6.7 g/dL (6.5-8.0); Triglycerides 83 mg/dL (<150)
[2024-09-06 11:20] LABS: Ferritin 11 ng/mL (20-250); TSH reflex Free T4 1.18 uIU/mL (0.32-4.0)
[2024-09-06 12:50] LABS: Alkaline Phosphatase 68 U/L (39-117)
[2024-09-11 21:28] LABS: Vitamin D 25-OH, D2 <4 ng/mL; Vitamin D 25-OH, D3 31 ng/mL; Vitamin D 25-OH, Total 31 ng/mL (30-100)
== END 2024-09-06 07:37 | disposition home or self-care (01) ==
LOC: HO.HMGCLDS 07:36
PROVIDERS: PCP Internal Medicine; Visit Provider Internal Medicine
DX: M19.042 Primary osteoarthritis, left hand (principal); M19.041 Primary osteoarthritis, right hand; F43.12 Post-traumatic stress disorder, chronic; M25.562 Pain in left knee; M25.561 Pain in right knee; Z68.38 Body mass index [BMI] 38.0-38.9, adult; E66.01 Morbid (severe) obesity due to excess calories; E66.812 Obesity, class 2; K21.9 Gastro-esophageal reflux disease without esophagitis; E11.9 Type 2 diabetes mellitus without complications; E78.9 Disorder of lipoprotein metabolism, unspecified
CPT/HCPCS: 36415; 80053; 80061; 82306; 82607; 82728; 83036; 84443; 85025

== ENCOUNTER 2024-09-08 08:15 | Outpatient (AMB) | payer OTHER, SELFPAY ==
--- NOTE | 2024-09-08 08:33 | MHC.PC.OV ---
Intake Visit Reasons: Discuss Labs Allergies No Known Allergies [No Known Allergies*] Allergy (Verified 09/08/24 08:35) Medication List - Last Reconciled 09/08/24 by Suzette Campbell MD acetaminophen 1,000 mg (2 x 500 mg) PO Q6H PRN albuterol sulfate 90 mcg/actuation (Ventolin HFA) 2 puffs inhalation QID PRN atorvastatin 20 mg PO DAILY cetirizine 10 mg PO DAILY clotrimazole-betamethasone 1-0.05 % 1 appl topical ONCE 30 days diclofenac sodium 1% 2 grams topical QID famotidine 40 mg PO BEDTIME hydroxyzine HCl 75 mg PO BEDTIME PRN oxcarbazepine 150 mg PO BID pantoprazole 40 mg PO DAILY prazosin 1 mg PO BID sertraline 2 tabs PO DAILY tamsulosin 0.4 mg PO DAILY Tobacco use date assessed: 09/08/24 Dental Screening Dental Screen Date: 09/08/24 Did you have a dental visit in the last 12 months?: No Did you have a dental problem in the last 6 months where you did not have access to dental care?: No Was dental information given to patient?: Patient declined HPI Discuss Labs HPI Details History - The patient is a 54-year-old male presenting with anemia follow-up and muscle pain evaluation. - The patient reports feeling a general sense of fatigue and low energy levels. - He has been diagnosed with iron deficiency anemia, which is more severe than previously recorded. - The patient's hemoglobin level has decreased from 13.2 in January of last year to 12.8, with a ferritin level of 11. - He indicates he is not currently taking any iron supplements. - He reports muscular discomfort, particularly localized in the legs and left hand, along with neck discomfort. - The anemia and related symptoms have developed progressively over time. - Patient is diabetic diet control, Hba1c is stable Patient Instructions - Take an iron supplement every day to improve anemia. - Avoid sweets to maintain healthy blood sugar levels. - Follow the prescribed schedule and return for the next appointment at 10:30 AM tomorrow.to be avaluated for hand and neck pain Review of Systems - General: No fever no chills - Neurological: No headaches no dizziness - Ear nose throat: No sore throat no hearing difficulty no ear pain - Cardiovascular: No syncope, no chest pain, no palpitations - Gastrointestinal: No nausea vomiting or diarrhea - Endocrine: No polyuria polydipsia no heat intolerance - Genitourinary: No dysuria , no blood in urine [facility] Medical History Tubular adenoma Cocaine abuse Opioid abuse Chronic post-traumatic stress disorder (PTSD) Adjustment disorder with mixed disturbance of emotions and conduct Hyperlipidemia GERD (gastroesophageal reflux disease) Depression Surgical History History of bariatric surgery Social History Household Members: None Housing: Apartment Do you presently have visiting nurse or other home services: No Alcohol intake: unknown Patient Tobacco Use Status: Current everyday Tobacco user Tobacco use type: Cigarette Cigarette Packs Per Day: 1 Cigarettes Per Day: 20.0 Years Smoked: 40 Packs Per Year: 40 Packs per year/per ci.00 e-Cigarette/Vaping Use: Never Used Second Hand Smoke Exposure: No Substance Use Type: Crack/Cocaine and Marijuana service: No Current occupational status: unemployed Sexual orientation: Straight/Heterosexual Cognitive needs: No Hearing needs: No Vision needs: No Questionnaire Thrive Questionnaire Date Thrive assessed: 07/22/24 AUDIT C Alcohol Use Questionnaire (AUDIT-C) 1. How often do you have a drink containing alcohol?: Never 3. How often do you have six or more drinks on one occasion?: Never Total Score: 0 Score Reviewed/Action Taken: Yes RENATE-7 AMB Questionnaire RENATE-7 Date RENATE - 7 assessed: 07/22/24 Source: Developed by Drs. Guido Madsen, Tamiko Parikh, Ted Mccain and colleagues, with an educational wander from [employer]. Physical exam (Primary Care) Tobacco/Smoking Status: Tobacco use Status Tobacco use date assessed 09/08/24 09/08/24 08:36 Patient Tobacco Use Status Current everyday Tobacco 09/08/24 08:36 Tobacco use type Cigarette 09/08/24 08:36 e-Cigarette/Vaping Use Never Used 09/08/24 08:36 Thrive Assessment: Date of Thrive Assessment Date Thrive assessed 07/22/24 09/08/24 08:36 Telehealth Telehealth Telehealth Platform: [facility] Location of provider rendering services: practice address Location of patient: address on file Patient Identification confirmed using: Name, : Yes Telehealth method: voice only Patient verbally consented to treatment: Yes Patient verbally consented to billing insurance company: Yes Patient informed of any privacy concerns related to visit: Yes Minutes spent on Phone/Video with Pt.: 13 Coding Level of Care Code Tele Est Pt Level 3 (98942) Diagnoses Diet-controlled diabetes mellitus E11.9 Other iron deficiency anemia D50.8 Iron deficiency anemia type: other iron deficiency Assessment & Plan Assessment & Plan (1) Diet-controlled diabetes mellitus: Code(s): E11.9 - Type 2 diabetes mellitus without complications Category: Medical (2) Iron deficiency anemia: Code(s): D50.9 - Iron deficiency anemia, unspecified Category: Medical Qualifiers: Iron deficiency anemia type: other iron deficiency Qualified Code(s): D50.8 - Other iron deficiency anemias Plan History - The patient is a 54-year-old male presenting with anemia follow-up and muscle pain evaluation. - The patient reports feeling a general sense of fatigue and low energy levels. - He has been diagnosed with iron deficiency anemia, which is more severe than previously recorded. - The patient's hemoglobin level has decreased from 13.2 in January of last year to 12.8, with a ferritin level of 11. - He indicates he is not currently taking any iron supplements. - He reports muscular discomfort, particularly localized in the legs and left hand, along with neck discomfort. - The anemia and related symptoms have developed progressively over time. - Patient is diabetic diet control, Hba1c is stable Patient Instructions - Take an iron supplement every day to improve anemia. - Avoid sweets to maintain healthy blood sugar levels. - Follow the prescribed schedule and return for the next appointment at 10:30 AM tomorrow.to be avaluated for hand and neck pain
== END 2024-09-08 08:54 | disposition home or self-care (01) ==
LOC: HO.HMCC 08:15
PROVIDERS: PCP Internal Medicine; Visit Provider Internal Medicine
DX: E11.9 Type 2 diabetes mellitus without complications (principal); D50.8 Other iron deficiency anemias

== ENCOUNTER → 2024-09-08 08:15 | Outpatient (BNVA) | payer OTHER, SELFPAY | PROVIDERS: PCP Internal Medicine; Visit Provider Internal Medicine | DX: Z13.89 Encounter for screening for other disorder (principal) ==

== ENCOUNTER 2024-09-09 08:59 | Outpatient (REF) | payer OTHER, SELFPAY ==
--- NOTE | ~2024-09-09 | XR_ITS ---
EXAMINATION: XR KNEE, LEFT CLINICAL INFORMATION: Pain in left knee. COMPARISON: None available. TECHNIQUE: Two views of the left knee. FINDINGS: Normal bone mineralization. No fracture, dislocation, or suspicious bone lesion. Moderate tricompartmental osteoarthritis identified, most significant in the medial patellofemoral compartment. There is marginal osteophytic spurring, subchondral sclerosis, and joint space narrowing. There is spurring of the tibial spines. No evidence of significant joint effusion. Normal soft tissues. XR/XR knee LT 2V IMPRESSION: Moderate tricompartmental osteoarthrosis most significant medial and patellofemoral compartments. Electronically signed by: Rui Dumont MD 09/09/2024 11:11 AM EDT
--- NOTE | ~2024-09-09 | XR_ITS ---
EXAMINATION: XR KNEE, RIGHT CLINICAL INFORMATION: M25.561 - Pain in right knee COMPARISON: None available. TECHNIQUE: Two views of the right knee. FINDINGS: Normal bone mineralization. No fracture, dislocation, or suspicious bone lesion. Tricompartmental osteoarthritis identified, moderate to severe in the medial compartment and patellofemoral compartment. Mild varus angulation of the joint. There is marginal osteophytic spurring, subchondral sclerosis, and joint space narrowing. There is spurring of the tibial spines. No evidence of significant joint effusion. Normal soft tissues. XR/XR knee RT 2V IMPRESSION: Tricompartmental osteoarthrosis, moderate to severe in the medial and patellofemoral compartments. Electronically signed by: Rui Dumont MD 09/09/2024 11:13 AM EDT
--- OUTSIDE RECORDS SUMMARY | 2024-09-09 09:12 | XMS_ITS | Clinical Summary ---
Author Organization [address] [facility] Address [address] [place] [address] Phone Care Team Providers Care Edge Baster Name Role Phone Eunice Worthington NP Primary Care Provider [phone] Allergies No known active allergies Medications acetaminophen [...] (diabetes mellitus), type 2 with neurological complications ([facility] V24, [facility] V28) 03/28/2024 Hyperlipidemia 03/28/2024 Hypertension 03/28/2024 GUME (obstructive sleep apnea) 03/28/2024 Class 1 obesity due to exces s calories with serious comorbidity and body mass index (BMI) of 34.0 to 34.9 in adult 03/28/2024 Intestinal malabsorption following gastrectomy 1 05/03/2018 Diabetic polyneuropathy ([facility] V24, [facility] V2 8) 10/21/2018 GERD (gastroesophageal reflux disease) 9 Osteoarthritis 11/07/2009 Overview (03/28/2024): Lumbar Spine Surgical History Surgery Date Site/Laterality Comments KNEE ARTHROSCOPY W/ MENISCAL REPAIR 09/21/2009 Right PROCEDURE: [place] ARTHROSCOPY KNEE W/MENISCUS RPR MEDIAL/LATERAL Medical History Medical History Date Comments Depression DX:Depression GUME (obstructive sleep apnea) DX :GUME (obstructive sleep apnea) Hypertension DX:Hypertension Osteoarthritis 11/07/2009 DX:Osteoarthriti s; COMMENT: Lumbar Spine Hyperlipidemia DX:Hyperlipidemi a GERD (gastroesophageal reflu x disease) 10/21/2018 DX:GERD (gastroesophageal re flux disease) DM (diabetes mellitus), type 2 with neurological complications ([facility] V24, [facility] V28) DX:DM (diabetes mellitus), t ype 2 with neurological complications ([facility]) Class 3 severe obesity due t o excess calories with serious comorbidity and body mass index (BMI) of 40.0 to 44.9 in adult ([facility] V24, [facility] V28) 03/11/2018 DX:Class 3 severe obesity due to excess calories with serious comorbidity and body mass index (BMI) of 40.0 to 44.9 in adult ([facility]) Diabetic polyneuropathy ([facility] /HCC V24, [facility]/HCC V28) 10/21/2018 DX:Diabetic polyneuropathy ( [facility]) Social History Tobacco Use Types Packs/Day Years [...] Test (06/08/2019) Annual BMP Blood Test Abstracted [facility] Provider HEALTH MAINTENANCE Final Result * (ABNORMAL) Hemoglobin A1c (04/07/2018) Hemoglobin A1C 7.4(A) <=6.5 % Blood Venous blood specimen / Unknown Result [facility] Provider LAB BLOOD ORDERABLES Zoey l Result * (ABNORMAL) Lipid panel (04/07/2018) LDL/HDL Ratio 3 0 - 4 Triglycerides 146 0 - 150 mg/dL Cholesterol 113 0 - 200 mg/dL HDL 33(A) >=40 mg/dL LDL Cholesterol 51 0 - 100 mg/dL Blood Venous blood specimen / Unknown [facility] Provider LAB BLOOD ORDERABLES Zoey l Result from Last 3 Months or Most Recently Relevant to Health Maintenance Insurance [address] [place] [id number] [employer] Care Teams Edge Baster Relationship Specialty Start Date End Date Eunice Worthington NP [address] [place] [address] PCP - General 09/23/18
== END 2024-09-09 09:00 | disposition home or self-care (01) ==
LOC: HO.HMGCX 08:59
PROVIDERS: PCP Internal Medicine; Visit Provider Internal Medicine
DX: M25.562 Pain in left knee (principal); M25.461 Effusion, right knee; M25.561 Pain in right knee
CPT/HCPCS: 73560; 96127; 99212

== ENCOUNTER → 2024-09-09 09:02 | Outpatient (BNV) | payer OTHER, SELFPAY | PROVIDERS: PCP Internal Medicine; Visit Provider Radiology Diagnostic Radiology | DX: M17.0 Bilateral primary osteoarthritis of knee (principal) | CPT/HCPCS: 73560 ==

== ENCOUNTER 2024-09-09 10:25 | Outpatient (AMB) | payer OTHER, SELFPAY ==
--- NOTE | 2024-09-09 10:29 | A.OFFPC_ITS ---
Vital Signs 09/09/24 10:32 Height 5 ft 3 in Weight 212 lb BMI 37.6 BP 112/90 H Blood Pressure Location Rt brachial Position Sitting Respiration 16 Pulse 50 Pulse Source Pulse Oximeter Temp 98.4 F Temp Source Oral Pulse Oximetry (%) 98 Oxygen Delivery Method Room Air Intake Visit Reasons: F/up Allergies No Known Allergies [No Known Allergies*] Allergy (Verified 09/09/24 10:29) Medication List - Last Reconciled 09/09/24 by Suzette Campbell MD albuterol sulfate 90 mcg/actuation (Ventolin HFA) 2 puffs inhalation QID PRN atorvastatin 20 mg PO DAILY cetirizine 10 mg PO DAILY clotrimazole-betamethasone 1-0.05 % 1 appl topical ONCE 30 days famotidine 40 mg PO BEDTIME hydroxyzine HCl 75 mg PO BEDTIME PRN pantoprazole 40 mg PO DAILY prazosin 1 mg PO BID sertraline 2 tabs PO DAILY Tobacco use date assessed: 09/08/24 Dental Screening Dental Screen Date: 09/08/24 Did you have a dental visit in the last 12 months?: Yes Did you have a dental problem in the last 6 months where you did not have access to dental care?: Yes Was dental information given to patient?: Patient has dentist HPI F/up HPI Details History - The patient is a 54-year-old male pres enting with knee pain. - The knee pain, described as a severe s train localized primarily in the knee and sometimes radiating down the leg, initiated around 2008. - The patient recalls a history of knee surgery on the right knee, although the specific date of surgery was not mentioned. - The patient reports persistent pain in both knees, with significant discomfort and feeling like the knee is a rock. - A recent x-ray of the knee was taken, though the results were not reviewed during the conversation. - There is stiffness and occasional swel ling in the affected knee, making movement and certain activities like walking challenging. - The patient denies taking any current medication for the pain. - Muscular tension is noted, possibly ag gravated by physical activities or prolonged periods of standing. Problem List - Osteoarthritis of the knee - knee swelling right - pain knees right more than left Patient Instructions - Take the prescribed medication for melissa n management, one in the morning and one at night. Diclofenac 75 mg b.i.d. with food for 7 days - Always take the medication with food t o avoid gastrointestinal distress. - Follow up with an orthopedic specialis t as advised. - Monitor pain levels and seek immediate care if pain becomes unmanageable or significantly worsens. - Engage in gentle exercises to keep the knee mobile without overexerting. Review of Systems - General: No fever no chills - Neurological: No headaches no dizziness - Ear nose throat: No sore throat no hearing difficulty no ear pain - Cardiovascular: No syncope, no chest pain, no palpitations - Gastrointestinal: No nausea vomiting or diarrhea Physical Exam General: No acute distress HEENT: No acute findings Neck: Supple Respiratory system: Able to talk in full sentences, no audible wheeze Cardiovascular: S1-S2 regular in rate and rhythm Gastrointestinal: No pain Extremities: Right knee slightly swollen tender medially with palpation range of motion intact with soreness CONSULTING DATABASE ADMINISTRATOR: Alert awake oriented x3 motor sensory intact Skin: Normal turgor PFSH Medical History Tubular adenoma Cocaine abuse Opioid abuse Chronic post-traumatic stress disorder (PTSD) Adjustment disorder with mixed disturbance of emotions and conduct Hyperlipidemia GERD (gastroesophageal reflux disease) Depression Surgical History History of bariatric surgery Family History Father Substance use disorder Mental health disorder Maternal Uncle Substance use disorder Paternal Uncle Substance use disorder Mother Mental health disorder Social History Household Members: None Housing: Apartment Do you presently have visiting nurse or other home services: No Alcohol intake: unknown Patient Tobacco Use Status: Current everyday Tobacco user Tobacco use type: Cigarette Cigarette Packs Per Day: 1 Cigarettes Per Day: 20.0 Years Smoked: 40 Packs Per Year: 40 Packs per year/per ci.00 e-Cigarette/Vaping Use: Never Used Second Hand Smoke Exposure: No Substance Use Type: Crack/Cocaine and Marijuana service: No Current occupational status: unemployed Sexual orientation: Straight/Heterosexual Cognitive needs: No Hearing needs: No Vision needs: No Questionnaire PHQ-9 Over the last 2 weeks, how often have you been bothered by any of the following problems? 1. Little interest or pleasure in doing things: more than half the days 2. Feeling down, depressed, or hopeless: several days 3. Trouble falling or staying asleep, or sleeping too much: several days 4. Feeling tired or having little energy: more than half the days 5. Poor appetite or overeating: several days 6. Feeling bad about yourself - or that you are a failure or have let yourself or your family down: several days 7. Trouble concentrating on things, such as reading the newspaper or watching television: more than half the days 8. Moving or speaking so slowly that other people could have noticed. Or the opposite - being so fidgety or restless that you have been moving around a lot more than usual: several days 9. Thoughts that you would be better off or of hurting yourself in some way: nearly every day Total score: 14 Depression Screening Interpretation: Positive Depression Screening Follow-up: Existing condition and In treatment Depression Screening Done: Yes 17904 - PHQ-9 Billing: Yes Source: Developed by Drs. Guido Madsen, Tamiko Parikh, Ted Mccain and colleagues, with an educational wander from [employer] Thrive Questionnaire Date Thrive assessed: 07/22/24 I am a: Patient What is your living situation today?: I have a steady place to live Within the past 12 months, did the food you bought not last and you didn't have the money to get more?: I choose not to answer this question Within the past 12 months, did you worry whether your food would run out before you got money to buy more?: I choose not to answer this question Do you have trouble paying for medicines?: No Do you have trouble getting transportation to medical appointments?: No Do you have trouble paying your heating and electricity bill?: No Do you have trouble taking care of your child, family member or friend?: I choose not to answer this question Do you have trouble with day-to-day activities such as bathing, preparing meals, shopping, managing finances, etc.?: Yes Are you currently unemployed and looking for a job?: I choose not to answer this question Are you interested in more education?: No Please select the resources that you would like help with: None Currently or been in a relationship where the following occur: I choose not to answer THRIVE Score: 0 AUDIT C Alcohol Use Questionnaire (AUDIT-C) 1. How often do you have a drink containing alcohol?: Monthly or less 2. How many drinks containing alcohol do you have on a typical day when you are drinking?: 3 or 4 3. How often do you have six or more drinks on one occasion?: Less than monthly Total Score: 3 RENATE-7 AMB Questionnaire RENATE-7 Date RENATE - 7 assessed: 07/22/24 Feeling nervous, anxious, or on edge: 3 = Nearly every day Not being able to stop or control worryin = Nearly every day Worrying too much about different things: 3 = Nearly every day Trouble relaxin = Nearly every day Being so restless that it is hard to sit still: 3 = Nearly every day Becoming easily annoyed or irritable: 3 = Nearly every day Feeling afraid as if something awful might happen: 3 = Nearly every day Total RENATE-7 score (0-4 normal; 5-9 mild; 10-14 moderate; 15-21 severe): 21 Source: Developed by Drs. Guido Madsen, Tamiko Parikh, Ted Mccain and colleagues, with an educational wander from [employer]. Physical exam (Primary Care) Vital Signs: Last Vital Signs Temp 98.4 F 09/09/24 10:32 Pulse 50 09/09/24 10:32 Resp 16 09/09/24 10:32 BP 112/90 H 09/09/24 10:32 Pulse Ox 98 09/09/24 10:32 Oxygen Delivery Method Room Air 09/09/24 10:32 BMI result Body Mass Index 37.6 Tobacco/Smoking Status: Tobacco use Status Tobacco use date assessed 09/08/24 09/09/24 10:35 Patient Tobacco Use Status Current everyday Tobacco 09/09/24 10:35 Tobacco use type Cigarette 09/09/24 10:35 e-Cigarette/Vaping Use Never Used 09/09/24 10:35 PHQ-9: PHQ-9 Score PHQ-9: Total score 14 09/09/24 10:50 Depression Screening Interpretation: Positive Depression Screening Follow-up: Existing condition and In treatment Thrive Assessment: Date of Thrive Assessment Date Thrive assessed 07/22/24 09/09/24 10:35 Currently or been in a relationship where the following occur: I choose not to answer Coding Level of Care Code Est Pt Level 3 (16975) Diagnoses Swelling of knee joint, right M25.461 Pain, joint, knee, right M25.561 Additional Codes PHQ-9 - 13672 - PHQ-9 Billing: Yes ([id number]) Assessment & Plan Assessment & Plan (1) Swelling of knee joint, right: Code(s): M25.461 - Effusion, right knee Category: Medical (2) Pain, joint, knee, right: Code(s): M25.561 - Pain in right knee Category: Medical Plan History - The patient is a 54-year-old male presenting with knee pain. - The knee pain, described as a severe strain localized primarily in the knee and sometimes radiating down the leg, initiated around 2008. - The patient recalls a history of knee surgery on the right knee, although the specific date of surgery was not mentioned. - The patient reports persistent pain in both knees, with significant discomfort and feeling like the knee is a rock. - A recent x-ray of the knee was taken, though the results were not reviewed during the conversation. - There is stiffness and occasional swelling in the affected knee, making movement and certain activities like walking challenging. - The patient denies taking any current medication for the pain. - Muscular tension is noted, possibly aggravated by physical activities or prolonged periods of standing. Problem List - Osteoarthritis of the knee - knee swelling right - pain knees right more than left Patient Instructions - Take the prescribed medication for pain management, one in the morning and one at night. Diclofenac 75 mg b.i.d. with food for 7 days - Always take the medication with food to avoid gastrointestinal distress. - Follow up with an precision agriculture specialist as advised. - Monitor pain levels and seek immediate care if pain becomes unmanageable or significantly worsens. - Engage in gentle exercises to keep the knee mobile without overexerting. Orders: Referrals Orthopedics Referral M25.461 - Effusion, right knee, M25.561 - Pain in right knee Medications: New diclofenac sodium take it with food 75 mg PO BID 7 days 14 tabs 0RF pain
[2024-09-09 10:32] VITALS: BP 112/90; PULSE 50; RESP 16; TEMP 36.9; O2SAT 98; BMI 37.6
--- OUTSIDE RECORDS SUMMARY | 2024-09-09 10:44 | XMS_ITS | Clinical Summary ---
Author Organization [address] [facility] Address [address] [place] [address] Phone Care Team Providers Care Tech Ed Teacher Name Role Phone Eunice Worthington NP Primary Care Provider [phone] Allergies No known active allergies Medications acetaminophen [...] (diabetes mellitus), type 2 with neurological complications ([facility] V24, [facility] V28) 03/28/2024 Hyperlipidemia 03/28/2024 Hypertension 03/28/2024 GUME (obstructive sleep apnea) 03/28/2024 Class 1 obesity due to exces s calories with serious comorbidity and body mass index (BMI) of 34.0 to 34.9 in adult 03/28/2024 Intestinal malabsorption following gastrectomy 1 05/03/2018 Diabetic polyneuropathy ([facility] V24, [facility] V2 8) 10/21/2018 GERD (gastroesophageal reflux disease) 9 Osteoarthritis 11/07/2009 Overview (03/28/2024): Lumbar Spine Surgical History Surgery Date Site/Laterality Comments KNEE ARTHROSCOPY W/ MENISCAL REPAIR 09/21/2009 Right PROCEDURE: [place] ARTHROSCOPY KNEE W/MENISCUS RPR MEDIAL/LATERAL Medical History Medical History Date Comments Depression DX:Depression GUME (obstructive sleep apnea) DX :GUME (obstructive sleep apnea) Hypertension DX:Hypertension Osteoarthritis 11/07/2009 DX:Osteoarthriti s; COMMENT: Lumbar Spine Hyperlipidemia DX:Hyperlipidemi a GERD (gastroesophageal reflu x disease) 10/21/2018 DX:GERD (gastroesophageal re flux disease) DM (diabetes mellitus), type 2 with neurological complications ([facility] V24, [facility] V28) DX:DM (diabetes mellitus), t ype 2 with neurological complications ([facility]) Class 3 severe obesity due t o excess calories with serious comorbidity and body mass index (BMI) of 40.0 to 44.9 in adult ([facility] V24, [facility] V28) 03/11/2018 DX:Class 3 severe obesity due to excess calories with serious comorbidity and body mass index (BMI) of 40.0 to 44.9 in adult ([facility]) Diabetic polyneuropathy ([facility] /[facility]CC V24, [facility] V28) 10/21/2018 DX:Diabetic polyneuropathy ( [facility]) Social History Tobacco Use Types Packs/Day [...] Test (06/08/2019) Annual BMP Blood Test Abstracted [facility] Provider HEALTH MAINTENANCE Final Result * (ABNORMAL) Hemoglobin A1c (04/07/2018) Hemoglobin A1C 7.4(A) <=6.5 % Blood Venous blood specimen / Unknown Result [facility] Provider LAB BLOOD ORDERABLES Zoey l Result * (ABNORMAL) Lipid panel (04/07/2018) LDL/HDL Ratio 3 0 - 4 Triglycerides 146 0 - 150 mg/dL Cholesterol 113 0 - 200 mg/dL HDL 33(A) >=40 mg/dL LDL Cholesterol 51 0 - 100 mg/dL Blood Venous blood specimen / Unknown [facility] Provider LAB BLOOD ORDERABLES Zoey l Result from Last 3 Months or Most Recently Relevant to Health Maintenance Insurance DR [address] [place] [id number] [employer] [place] [address] Care Teams Tech Ed Teacher Relationship Specialty Start Date End Date Eunice Worthington NP [address] [place] [address] PCP - General 09/23/18
== END 2024-09-09 11:08 | disposition home or self-care (01) ==
LOC: HO.HMCC 10:26
PROVIDERS: PCP Internal Medicine; Visit Provider Internal Medicine
DX: M25.461 Effusion, right knee (principal); M25.561 Pain in right knee

== ENCOUNTER 2024-11-07 13:15 | Outpatient (AMB) | payer OTHER, SELFPAY ==
--- NOTE | 2024-11-07 13:26 | AM.OFFWIN_ITS ---
Intake Vital Signs 11/07/24 13:27 Height 5 ft 3 in Weight 190 lb BMI 33.7 BP 110/80 Blood Pressure Location Lt brachial Position Sitting Pulse 70 Pulse Source Pulse Oximeter Temp 98.5 F Temp Source Oral Pulse Oximetry (%) 98 Oxygen Delivery Method Room Air Intake Visit Reasons: EP-cough, phlegm, body ache, chest congestion Intake Note: presents with chest congestion, productive cough, body aches, rib pain from coughing. pt reports h/o bronchitis. Patient Tobacco Use Status: Current everyday Tobacco user Allergies No Known Allergies (No Known Allergies*) Allergy (Verified 11/07/24 13:31) Do you need a note to return to daycare/school/sports/work: No HPI HPI Comments History of Present Illness Details History - The patient is a 54-year-old male pres enting with respiratory symptoms including cough and wheezing. - Reports a productive cough with phlegm for 6 days, without fever or shortness of breath initially. - Symptoms started after a beach visit, with no underwater exposure. - Denies asthma or COPD history, and is not using medications for current symptoms. - Smoking history includes current use o f one to two cigarettes daily, reduced from a pack a day. - Experiences rib pain from coughing and general body aches. Physical Exam General: Cooperative, healthy appearing, comfortable and no acute distress Orientation/consciousness: Patient oriented x3 Limitations: No limitations Head: Normal to inspection Ears: Hearing grossly normal bilaterally, external ears normal and TM's normal bilaterally Nose: Normal external nose present, Normal nares present and No nasal discharge present Face and sinus: Normal facial exam and Yes sinuses nontender Mouth: Normal oral and palatal mucosa present and moist mucous membranes Throat: Yes tonsils normal, Yes uvula midline. Posterior oropharynx erythema, no exudates Eyes: Appearance normal, both eyes and all related structures Neck: Normal visual inspection, full ROM Respiratory: Insp/exp wheezing throughout with some rhonchi. Normal respiratory effort, able to speak in complete sentences, Actively coughing, no respiratory distress, not tachypneic, no tripod positioning and no use of accessory muscles Cardiovascular: Regular rate and rhythm. Normal S1 and S2 Skin: No rashes or lesions noted Neuro: Patient oriented x3 Extremities: Normal to inspection and Yes no clubbing, cyanosis or edema [facility] Medical History Tubular adenoma Cocaine abuse Opioid abuse Chronic post-traumatic stress disorder (PTSD) Adjustment disorder with mixed disturbance of emotions and conduct Hyperlipidemia GERD (gastroesophageal reflux disease) Depression Surgical History History of bariatric surgery Family History Father Substance use disorder Mental health disorder Maternal Uncle Substance use disorder Paternal Uncle Substance use disorder Mother Mental health disorder Social History Household Members: None Housing: Apartment Do you presently have visiting nurse or other home services: No Alcohol intake: unknown Patient Tobacco Use Status: Current everyday Tobacco user Tobacco use type: Cigarette Cigarette Packs Per Day: 1 Cigarettes Per Day: 20.0 Years Smoked: 40 e-Cigarette/Vaping Use: Never Used Second Hand Smoke Exposure: No Substance Use Type: Crack/Cocaine and Marijuana service: No Current occupational status: unemployed Sexual orientation: Straight/Heterosexual Cognitive needs: No Hearing needs: No Vision needs: No Review of Systems Const All systems reviewed & are unremarkable except as noted in HPI and below Physical Exam Vital Signs: Last Vital Signs Temp 98.5 F 11/07/24 13:27 Pulse 70 11/07/24 13:27 BP 110/80 11/07/24 13:27 Pulse Ox 98 11/07/24 13:27 Oxygen Delivery Method Room Air 11/07/24 13:27 BMI result Body Mass Index 33.7 Assessment & Plan Assessment & Plan (1) URI, acute: Code(s): J06.9 - Acute upper respiratory infection, unspecified Plan: - VSS, pt well appearing and PE remarkable for insp/exp wheezes with some rhonchi. - Will get a chest X-ray to exclude pneumonia, given lung congestion and wheezing. - Start prednisone to alleviate inflammation and enhance breathing, one tablet each morning for five days. Patient was informed and verbally consented to the use of an ambient scribe for clinic note documentation during this visit Orders: Orders SARS-CoV2/FLU/RSV Today R09.89 - Other specified symptoms and signs involving the circulatory and respiratory systems XR chest 2V Today R05.9 - Cough, unspecified Medications: New prednisone 40 mg (2 x 20 mg) PO QAM 10 tabs 0RF Coding Level of Care Code Est Pt Level 4 (19015) Diagnoses URI, acute J06.9
[2024-11-07 13:27] VITALS: BP 110/80; PULSE 70; TEMP 36.9; O2SAT 98; BMI 33.7
--- OUTSIDE RECORDS SUMMARY | 2024-11-07 14:17 | XMS_ITS | Clinical Summary ---
Author Organization [address] [facility] Address [address] [place] [address] Phone Care Team Providers Care Police Stenographer Name Role Phone Eunice Worthington NP Primary Care Provider [phone] Allergies No known active allergies Medications acetaminophen [...] (diabetes mellitus), type 2 with neurological complications ([facility] V24, [facility] V28) 03/28/2024 Hyperlipidemia 03/28/2024 Hypertension 03/28/2024 GUME (obstructive sleep apnea) 03/28/2024 Class 1 obesity due to exces s calories with serious comorbidity and body mass index (BMI) of 34.0 to 34.9 in adult 03/28/2024 Intestinal malabsorption following gastrectomy 1 05/03/2018 Diabetic polyneuropathy ([facility] V24, [facility] V2 8) 10/21/2018 GERD (gastroesophageal reflux disease) 9 Osteoarthritis 11/07/2009 Overview (03/28/2024): Lumbar Spine Surgical History Surgery Date Site/Laterality Comments KNEE ARTHROSCOPY W/ MENISCAL REPAIR 09/21/2009 Right PROCEDURE: [place] ARTHROSCOPY KNEE W/MENISCUS RPR MEDIAL/LATERAL Medical History Medical History Date Comments Depression DX:Depression GUME (obstructive sleep apnea) DX :GUME (obstructive sleep apnea) Hypertension DX:Hypertension Osteoarthritis 11/07/2009 DX:Osteoarthriti s; COMMENT: Lumbar Spine Hyperlipidemia DX:Hyperlipidemi a GERD (gastroesophageal reflu x disease) 10/21/2018 DX:GERD (gastroesophageal re flux disease) DM (diabetes mellitus), type 2 with neurological complications ([facility] V24, [facility] V28) DX:DM (diabetes mellitus), t ype 2 with neurological complications ([facility]) Class 3 severe obesity due t o excess calories with serious comorbidity and body mass index (BMI) of 40.0 to 44.9 in adult ([facility] V24, [facility] V28) 03/11/2018 DX:Class 3 severe obesity due to excess calories with serious comorbidity and body mass index (BMI) of 40.0 to 44.9 in adult ([facility]) Diabetic polyneuropathy ([facility] V24, [facility] V28) 10/21/2018 DX:Diabetic polyneuropathy ( HCC) Social History Tobacco Use Types Packs/Day Years [...] ars (1 of 2 - PCV) 1991 Diabetes: [...] Screening (Lipid Panel) 04/07/2023 04/07/2018 COVID-19 Vaccine ( - 2023-2 5 season) 2023 Influenza Vaccine (#1) 2024 HIB Vaccines Aged Out No longer [...] Results * Annual BMP Blood Test (06/08/2019) Pathologist [facility] Annual BMP Blood Test Abstracted [facility] Provider HEALTH MAINTENANCE Final Result * (ABNORMAL) Hemoglobin A1c (04/07/2018) Pathologist [facility] Hemoglobin A1C 7.4(A) <=6.5 % Blood Venous blood specimen / Unknown [facility] Provider LAB BLOOD ORDERABLES Zoey l Result * (ABNORMAL) Lipid panel (04/07/2018) [facility] LDL/HDL Ratio 3 0 - 4 Triglycerides 146 0 - 150 mg/dL Cholesterol 113 0 - 200 mg/dL HDL 33(A) >=40 mg/dL LDL Cholesterol 51 0 - 100 mg/dL Blood Venous blood specimen / Unknown [facility] Provider LAB BLOOD ORDERABLES Zoey l Result from Last 3 Months or Most Recently Relevant to Health Maintenance Insurance [facility] [employer] Care Teams Police Stenographer Relationship Specialty Start Date End Date Eunice Worthington NP [address] [place] [address] PCP - General 09/23/18
== END 2024-11-07 14:09 | disposition home or self-care (01) ==
PROVIDERS: PCP Internal Medicine; Visit Provider Physician Assistant
DX: J06.9 Acute upper respiratory infection, unspecified (principal)

== ENCOUNTER 2024-11-07 13:55 | Outpatient (REF) | payer OTHER, SELFPAY ==
--- NOTE | ~2024-11-07 | XR_ITS ---
EXAMINATION: XR CHEST CLINICAL INFORMATION: R05.9 - Cough, unspecified COMPARISON: None available. TECHNIQUE: 2 views of the chest were obtained. FINDINGS: No significant abnormality is noted involving the heart, lungs, mediastinum, bony thorax or soft tissues. XR/XR chest 2V IMPRESSION: No acute disease. Electronically signed by: Krunal Whitten MD 11/07/2024 02:19 PM EDT
[2024-11-07 18:14] LABS: Resp Syncy Virus RNA Qual PCR NEGATIVE (Negative); SARS COV2 PCR INHOUSE NEGATIVE (Negative)
== END 2024-11-07 13:56 | disposition home or self-care (01) ==
LOC: HO.LAB 13:55
PROVIDERS: PCP Internal Medicine; Visit Provider Physician Assistant
DX: R05.9 Cough, unspecified (principal); R09.89 Other specified symptoms and signs involving the circulatory and respiratory systems
CPT/HCPCS: 71046; 87637; 99212

== ENCOUNTER → 2024-11-07 14:05 | Outpatient (BNV) | payer OTHER, SELFPAY | PROVIDERS: PCP Internal Medicine; Visit Provider Radiology Diagnostic Radiology | DX: R05.9 Cough, unspecified (principal) | CPT/HCPCS: 71046 ==

== ENCOUNTER 2024-11-08 09:58 | Outpatient (AMB) | payer OTHER, SELFPAY ==
--- NOTE | 2024-11-08 10:01 | MHC.OFFVIS ---
Vital Signs 11/08/24 10:03 Height 5 ft 3 in Weight 190 lb BMI 33.7 Intake Visit Reasons: Right knee pain and giving way Intake Note: Speedy is a 54 year old male who presents with complaints of progressively worsening right knee pain and giving way. The patient states that he underwent right knee surgery in 2008. He states that he got fairly good relief from that procedure. He re-injured his knee approximately 1 year ago. He twisted his knee and had acute onset of pain. The patient states that several weeks ago he did fall because his right knee ?gave out?. He has failed the last 6 weeks of conservative treatment which has included Tylenol, Aleve, diclofenac topical gel, a home exercise program and physical therapy exercises. He has had injections in the past which gave him minimal relief. He states that his right knee will give out several times per day. Letter Carrier Required: Yes Letter Carrier Language: Medical Representative Services: Letter Carrier Present Letter Carrier Name: RAY Perez/PAOLO Allergies No Known Allergies (No Known Allergies*) Allergy (Verified 11/08/24 10:03) Medication List - Last Reconciled 11/08/24 by Nick Westbrook MD atorvastatin 20 mg PO DAILY cetirizine 10 mg PO DAILY clotrimazole-betamethasone 1-0.05 % 1 appl topical ONCE 30 days diclofenac sodium 75 mg PO BID 7 days famotidine 40 mg PO BEDTIME hydroxyzine HCl 75 mg PO BEDTIME PRN lamotrigine 25 mg PO DAILY pantoprazole 40 mg PO DAILY prednisone 40 mg (2 x 20 mg) PO QAM sertraline 2 tabs PO DAILY topiramate 50 mg PO BID [facility] Medical History (Updated 11/08/24 @ 10:19 by Nick Westbrook MD) Tubular adenoma Cocaine abuse Opioid abuse Chronic post-traumatic stress disorder (PTSD) Adjustment disorder with mixed disturbance of emotions and conduct Hyperlipidemia GERD (gastroesophageal reflux disease) Depression Surgical History (Updated 11/08/24 @ 10:05 by RAY Liang) H/O knee surgery History of bariatric surgery Family History Father Substance use disorder Mental health disorder Maternal Uncle Substance use disorder Paternal Uncle Substance use disorder Mother Mental health disorder Social History (Updated 11/08/24 @ 10:04 by Dalymar Kennedy, RMA) Household Members: None Housing: Apartment Do you presently have visiting nurse or other home services: No Alcohol intake: unknown Patient Tobacco Use Status: Current everyday Tobacco user Tobacco use type: Cigarette Cigarette Packs Per Day: 1 Cigarettes Per Day: 20.0 Years Smoked: 40 e-Cigarette/Vaping Use: Never Used Second Hand Smoke Exposure: No Substance Use Type: Crack/Cocaine and Marijuana service: No Current occupational status: unemployed Current occupation: rt handed Sexual orientation: Straight/Heterosexual Cognitive needs: No Hearing needs: No Vision needs: No Physical Exam Vital Signs: BMI result Body Mass Index 33.7 Const Other: Well-nourished well-developed very friendly male awake alert and oriented x3 in no acute distress Extrem Other: Right knee examination shows a minimal effusion, mild crepitus with range of motion, tenderness along his medial joint line, positive Kain's test, no instability Results Reviewed Results Reviewed: X-rays of the patient's right knee show mild to moderate joint space narrowing most significant in the medial compartment, no acute bony abnormalities Assessment & Plan Assessment & Plan (1) Tear of medial meniscus of right knee: Code(s): S83.241A - Other tear of medial meniscus, current injury, right knee, initial encounter Category: Medical Plan Mr. Merced Michel presents with right knee pain and mechanical symptoms due to early degenerative joint disease as well as possible recurrent medial meniscus tearing. Thus, I will send the patient for an MRI of his right knee for further evaluation. I will see him back once the MRI is completed to discuss the findings and treatment options. Feel free to call me at any time should questions regarding his orthopedic management arise. Thank you very much for asking me to see this very friendly gentleman. I spent 20 minutes in reviewing the patient's records and imaging studies, seeing the patient and documenting in the medical record. Orders: Orders MR knee RT wo con 11/09/24 S83.241A - Other tear of medial meniscus, current injury, right knee, initial encounter Coding Level of Care Code New Pt Level 3 (51017) Complex EM visit Add On G2211 Diagnoses Tear of medial meniscus of right knee S83.241A
[2024-11-08 10:03] VITALS: BMI 33.7
--- OUTSIDE RECORDS SUMMARY | 2024-11-08 10:52 | XMS_ITS | Clinical Summary ---
Author Organization [address] [facility] Address [address] [place] [address] Phone Care Team Providers Care Fur Pointer Name Role Phone Eunice Worthington NP Primary Care Provider [phone] Allergies No known active allergies Medications acetaminophen [...] (diabetes mellitus), type 2 with neurological complications ([facility] V24, [facility] V28) 03/28/2024 Hyperlipidemia 03/28/2024 Hypertension 03/28/2024 GUME (obstructive sleep apnea) 03/28/2024 Class 1 obesity due to exces s calories with serious comorbidity and body mass index (BMI) of 34.0 to 34.9 in adult 03/28/2024 Intestinal malabsorption following gastrectomy 1 05/03/2018 Diabetic polyneuropathy ([facility] V24, [facility] V2 8) 10/21/2018 GERD (gastroesophageal reflux disease) 9 Osteoarthritis 11/07/2009 Overview (03/28/2024): Lumbar Spine Surgical History Surgery Date Site/Laterality Comments KNEE ARTHROSCOPY W/ MENISCAL REPAIR 09/21/2009 Right PROCEDURE: [place] ARTHROSCOPY KNEE W/MENISCUS RPR MEDIAL/LATERAL Medical History Medical History Date Comments Depression DX:Depression GUME (obstructive sleep apnea) DX :GUME (obstructive sleep apnea) Hypertension DX:Hypertension Osteoarthritis 11/07/2009 DX:Osteoarthriti s; COMMENT: Lumbar Spine Hyperlipidemia DX:Hyperlipidemi a GERD (gastroesophageal reflu x disease) 10/21/2018 DX:GERD (gastroesophageal re flux disease) DM (diabetes mellitus), type 2 with neurological complications ([facility] V24, [facility] V28) DX:DM (diabetes mellitus), t ype 2 with neurological complications ([facility]) Class 3 severe obesity due t o excess calories with serious comorbidity and body mass index (BMI) of 40.0 to 44.9 in adult ([facility] V24, [facility] V28) 03/11/2018 DX:Class 3 severe obesity due to excess calories with serious comorbidity and body mass index (BMI) of 40.0 to 44.9 in adult ([facility]) Diabetic polyneuropathy ([facility] /[facility] V24, [facility] V28) 10/21/2018 DX:Diabetic polyneuropathy ( HCC) Social [...] BMP Blood Test (06/08/2019) Pathologist [facility] Annual BMP Blood Test Abstracted [facility] Provider HEALTH MAINTENANCE Final Result * (ABNORMAL) Hemoglobin A1c (04/07/2018) Pathologist [facility] Hemoglobin A1C 7.4(A) <=6.5 % Blood Venous blood specimen / Unknown [facility] Provider LAB BLOOD ORDERABLES Zoey l Result * (ABNORMAL) Lipid panel (04/07/2018) [facility] LDL/HDL Ratio 3 0 - 4 Triglycerides 146 0 - 150 mg/dL Cholesterol 113 0 - 200 mg/dL HDL 33(A) >=40 mg/dL LDL Cholesterol 51 0 - 100 mg/dL Blood Venous blood specimen / Unknown [facility] Provider LAB BLOOD ORDERABLES Zoey l Result from Last 3 Months or Most Recently Relevant to Health Maintenance Insurance [employer] Care Teams Fur Pointer Relationship Specialty Start Date End Date Eunice Worthington NP [address] [place] [address] PCP - General 09/23/18
== END 2024-11-08 10:12 | disposition home or self-care (01) ==
LOC: HO.HOS 09:59
PROVIDERS: PCP Internal Medicine; Visit Provider Orthopaedic Surgery
DX: S83.241A Other tear of medial meniscus, current injury, right knee, initial encounter (principal)
CPT/HCPCS: 99203; G2211

== ENCOUNTER → 2024-11-08 09:58 | Outpatient (BNVA) | payer OTHER, SELFPAY | PROVIDERS: PCP Internal Medicine; Visit Provider Orthopaedic Surgery | DX: M25.561 Pain in right knee (principal); S83.241A Other tear of medial meniscus, current injury, right knee, initial encounter | CPT/HCPCS: 99202 ==

== ENCOUNTER 2024-11-09 18:55 | Outpatient (REF) | payer OTHER, SELFPAY ==
--- NOTE | ~2024-11-09 | MR_ITS ---
EXAMINATION: MRI RIGHT KNEE WITHOUT CONTRAST HISTORY: S83.241A - Other tear of medial meniscus, current injury, right knee COMPARISON: Correlation is made with plain films of the right knee dated 09/09/2024. TECHNIQUE: Coronal T1 and fat-suppressed proton density, sagittal proton density and fat-suppressed proton density, and axial fat suppressed T2 weighted MR images of the right knee were obtained. FINDINGS: Bone marrow: There are subchondral marrow changes in the distal femur and proximal tibia related to osteoarthritis. Joint effusion: There is a trace suprapatellar joint effusion. There are loose bodies in the posterior aspect of the joint space measuring up to 6 mm in size. Berger's cyst: There is small Berger's cyst. Articular cartilage: There is severe osteoarthritis of the medial and patellofemoral compartments, with cartilage loss and osteophyte formation. Muscles/soft tissues: The visualized muscles demonstrate normal signal intensity. Anterior cruciate ligament: The anterior cruciate ligament is thickened and demonstrates increased signal intensity, suggestive of a partial tear. Posterior cruciate ligament: Intact Medial collateral ligament: Intact Lateral collateral ligament: Intact Medial meniscus: There is extrusion of the anterior horn of the medial meniscus. The meniscal body is diminutive in size which may be postsurgical in nature versus a degenerative tear. Lateral meniscus: Intact Flexor mechanism: The popliteus, gastrocnemius, and hamstring tendons are intact. Quadriceps tendon: Intact Patellar tendon: Intact Patellar retinacula: Intact MR/MR knee RT wo con IMPRESSION: 1. Severe osteoarthritis of the medial and patellofemoral compartments. 2. Trace joint effusion and small Berger's cyst. Loose bodies in the posterior aspect of the joint space measuring up to 6 mm in size. 3. Probable partial tear of the anterior cruciate ligament. 4. The body of the medial meniscus is diminutive in size which may be postsurgical in nature or represent a degenerative tear. Clinical correlation is recommended. Electronically signed by: Guido Escudero MD 11/10/2024 08:26 AM EDT
== END 2024-11-09 18:56 | disposition home or self-care (01) ==
LOC: HO.MRI 18:55
PROVIDERS: Visit Provider Orthopaedic Surgery
DX: S83.241A Other tear of medial meniscus, current injury, right knee, initial encounter (principal)
CPT/HCPCS: 73721

== ENCOUNTER → 2024-11-09 19:00 | Outpatient (BNV) | payer OTHER, SELFPAY | PROVIDERS: Visit Provider Radiology Diagnostic Radiology | DX: M17.11 Unilateral primary osteoarthritis, right knee (principal); M71.21 Synovial cyst of popliteal space [Baker], right knee | CPT/HCPCS: 73721 ==

== ENCOUNTER 2024-11-14 09:01 | Outpatient (AMB) | payer OTHER, SELFPAY ==
[2024-11-14 09:04] VITALS: BMI 33.7
--- NOTE | 2024-11-14 09:04 | MHC.OFFVIS ---
Vital Signs 11/14/24 09:04 Height 5 ft 3 in Weight 190 lb BMI 33.7 Intake Visit Reasons: OV- MRI review/ Pain in right knee Intake Note: Speedy is a 54 year old male who presents with complaints of progressively worsening right knee pain and giving way. The patient states that he underwent right knee surgery in 2008. He states that he got fairly good relief from that procedure. He re-injured his knee approximately 1 year ago. He twisted his knee and had acute onset of pain. The patient states that several weeks ago he did fall because his right knee ?gave out?. He has failed the last 6 weeks of conservative treatment which has included Tylenol, Aleve, diclofenac topical gel, a home exercise program and physical therapy exercises. He has had injections in the past which gave him minimal relief. He states that his right knee will give out several times per day. vitals- 122/81 Heart rate 59 Allergies No Known Allergies (No Known Allergies*) Allergy (Verified 11/14/24 09:06) Medication List - Last Reconciled 11/14/24 by Nick Westbrook MD atorvastatin 20 mg PO DAILY cetirizine 10 mg PO DAILY clotrimazole-betamethasone 1-0.05 % 1 appl topical ONCE 30 days diclofenac sodium 75 mg PO BID 7 days famotidine 40 mg PO BEDTIME hydroxyzine HCl 75 mg PO BEDTIME PRN lamotrigine 25 mg PO DAILY pantoprazole 40 mg PO DAILY prednisone 40 mg (2 x 20 mg) PO QAM sertraline 2 tabs PO DAILY topiramate 50 mg PO BID PFS Medical History Tubular adenoma Cocaine abuse Opioid abuse Chronic post-traumatic stress disorder (PTSD) Adjustment disorder with mixed disturbance of emotions and conduct Hyperlipidemia GERD (gastroesophageal reflux disease) Depression Surgical History H/O knee surgery History of bariatric surgery Family History Father Substance use disorder Mental health disorder Maternal Uncle Substance use disorder Paternal Uncle Substance use disorder Mother Mental health disorder Social History Household Members: None Housing: Apartment Do you presently have visiting nurse or other home services: No Alcohol intake: unknown Patient Tobacco Use Status: Current everyday Tobacco user Tobacco use type: Cigarette Cigarette Packs Per Day: 1 Cigarettes Per Day: 20.0 Years Smoked: 40 e-Cigarette/Vaping Use: Never Used Second Hand Smoke Exposure: No Substance Use Type: Crack/Cocaine and Marijuana service: No Current occupational status: unemployed Current occupation: rt handed Sexual orientation: Straight/Heterosexual Cognitive needs: No Hearing needs: No Vision needs: No Physical Exam Vital Signs: BMI result Body Mass Index 33.7 Const Other: Well-nourished well-developed very friendly male awake alert and oriented x3 in no acute distress Extrem Other: Right knee examination shows a minimal effusion, mild crepitus with range of motion, tenderness along his medial joint line, positive Kain's test, no instability Results Reviewed Results Reviewed: Standing full weight-bearing x-rays of the patient's right knee show mild to moderate diffuse joint space narrowing, no acute bony abnormalities MRI of the patient's right knee shows mild to moderate diffuse degenerative changes as well as a medial meniscus tear Assessment & Plan Assessment & Plan (1) Tear of medial meniscus of right knee: Code(s): S83.241A - Other tear of medial meniscus, current injury, right knee, initial encounter Category: Medical Plan Mr. Merced Michel presents with progressively worsening right knee pain and mechanical symptoms due to early degenerative joint disease as well as a medial meniscus tear. I had a lengthy discussion with the patient regarding the treatment options. He wishes to hold off on total knee replacement surgery for as long as possible. I agree with this plan. Because of the patient's mechanical symptoms I do feel that he would get significant relief of his symptoms following arthroscopic surgery. The patient wishes to proceed with right knee arthroscopic surgery. The surgery will involve right knee arthroscopic partial medial meniscectomy. He does understand that he may not get 100% relief of his symptoms depending on the severity of his degenerative changes. He will be scheduled for next available date. He will follow up as instructed. Feel free to call me at any time should questions regarding his orthopedic management arise. I spent 22 minutes in reviewing the patient's records and imaging studies, seeing the patient and documenting in the medical record. Coding Level of Care Code Est Pt Level 3 (65128) Complex EM visit Add On G2211 Diagnoses Tear of medial meniscus of right knee I09.276O
--- OUTSIDE RECORDS SUMMARY | 2024-11-14 09:15 | XMS_ITS | Clinical Summary ---
Author Organization [facility] Address [address] [place] [address] Phone Care Team Providers Care User Interface Artist Name Role Phone Eunice Worthington NP Primary Care Provider [phone] Allergies No known active allergies Medications acetaminophen [...] (diabetes mellitus), type 2 with neurological complications ([facility] V24, [facility] V28) 03/28/2024 Hyperlipidemia 03/28/2024 Hypertension 03/28/2024 GUME (obstructive sleep apnea) 03/28/2024 Class 1 obesity due to exces s calories with serious comorbidity and body mass index (BMI) of 34.0 to 34.9 in adult 03/28/2024 Intestinal malabsorption following gastrectomy 1 05/03/2018 Diabetic polyneuropathy ([facility] V24, [facility] V2 8) 10/21/2018 GERD (gastroesophageal reflux disease) 9 Osteoarthritis 11/07/2009 Overview (03/28/2024): Lumbar Spine Surgical History Surgery Date Site/Laterality Comments KNEE ARTHROSCOPY W/ MENISCAL REPAIR 09/21/2009 Right PROCEDURE: NC ARTHROSCOPY KNEE W/MENISCUS RPR MEDIAL/LATERAL Medical History Medical History Date Comments Depression DX:Depression GUME (obstructive sleep apnea) DX :GUME (obstructive sleep apnea) Hypertension DX:Hypertension Osteoarthritis 11/07/2009 DX:Osteoarthriti s; COMMENT: Lumbar Spine Hyperlipidemia DX:Hyperlipidemi a GERD (gastroesophageal reflu x disease) 10/21/2018 DX:GERD (gastroesophageal re flux disease) DM (diabetes mellitus), type 2 with neurological complications ([facility] V24, [facility] V28) DX:DM (diabetes mellitus), t ype 2 with neurological complications ([facility]) Class 3 severe obesity due t o excess calories with serious comorbidity and body mass index (BMI) of 40.0 to 44.9 in adult ([facility] V24, [facility] V28) 03/11/2018 DX:Class 3 severe obesity due to excess calories with serious comorbidity and body mass index (BMI) of 40.0 to 44.9 in adult ([facility]) Diabetic polyneuropathy ([facility] /[facility] V24, [facility] V28) 10/21/2018 DX:Diabetic polyneuropathy ( [facility]) Social History Tobacco Use Types [...] 2) 2022 Colorectal Cancer Screening: Colonoscopy 03/30/2022 HIV Screening 03/30/2022 Hepatitis C Screening 03/30/2022 Social Influencers of Health Screening 03/30/2022 Diabetes: Annual Urine Albumin-Creatinine Ratio (uACR) 04/11/2022 Diabetes: Blood Sugar Contro l Test (HGBA1C) 04/11/2022 04/07/2018 Hypertension/CHF/CAD Annual BMP Blood Test 04/11/2022 06/08/2019 Cholesterol Screening (Lipid Panel) 04/07/2023 04/07/2018 COVID-19 Vaccine ( - 2023-2 5 season) 2023 Depression Screening 04/27/2024 Influenza Vaccine (#1) 2024 HIB Vaccines Aged [...] * Annual BMP Blood Test (06/08/2019) Pathologist [facility] Annual BMP Blood Test Abstracted [facility] Provider HEALTH MAINTENANCE Final Result * (ABNORMAL) Hemoglobin A1c (04/07/2018) Pathologist [facility] Hemoglobin A1C 7.4(A) <=6.5 % Blood Venous blood specimen / Unknown [facility] Provider LAB BLOOD ORDERABLES Zoey l Result * (ABNORMAL) Lipid panel (04/07/2018) [facility] LDL/HDL Ratio 3 0 - 4 Triglycerides 146 0 - 150 mg/dL Cholesterol 113 0 - 200 mg/dL HDL 33(A) >=40 mg/dL LDL Cholesterol 51 0 - 100 mg/dL Blood Venous blood specimen / Unknown [facility] Provider LAB BLOOD ORDERABLES Zoey l Result from Last 3 Months or Most Recently Relevant to Health Maintenance Insurance [facility] [employer] Care Teams User Interface Artist Relationship Specialty Start Date End Date Eunice Worthington NP [address] [place] [address] PCP - General 09/23/18
== END 2024-11-14 09:19 | disposition home or self-care (01) ==
LOC: HO.HOS 09:02
PROVIDERS: Visit Provider Orthopaedic Surgery
DX: S83.241A Other tear of medial meniscus, current injury, right knee, initial encounter (principal)
CPT/HCPCS: 99213

== ENCOUNTER → 2024-11-14 09:01 | Outpatient (BNVA) | payer OTHER, SELFPAY | PROVIDERS: Visit Provider Orthopaedic Surgery | DX: Z71.2 Person consulting for explanation of examination or test findings (principal); M25.561 Pain in right knee; S83.241A Other tear of medial meniscus, current injury, right knee, initial encounter | CPT/HCPCS: 99212 ==

== ENCOUNTER 2024-11-29 11:14 | Outpatient (REF) | payer OTHER, SELFPAY ==
[2024-11-29 13:44] LABS: MANUAL DIFF FLAG NO
[2024-11-29 13:49] LABS: Hematocrit 37.1 % (42.0-52.0); Hemoglobin 12.5 g/dl (14.0-18.0); Imm Gran Abs Auto 0.01 X10*3/uL (0.00-0.03); Imm Gran Pct Auto 0.2 % (0.0-0.4); Lymphocytes Absolute Auto 1.5 X10*3/uL (1.2-4.9); Mean Corpuscular HGB Conc 33.7 g/dl (31.0-36.0); Mean Corpuscular Hemoglobin 29.3 pg (27.0-33.0); Mean Corpuscular Volume 87.1 fL (80.0-98.0); NRBC Abs Auto 0.000 X10*3/uL (0.0-0.012); NRBC Pct Auto 0.0 /100WBC (0.0-0.2); Platelet Count 203 X10*3/uL (160-400); Red Blood Count 4.26 X10*6/uL (4.60-5.80); White Blood Count 6.3 X10*3/uL (4.8-10.8)
[2024-11-29 14:20] LABS: Alanine Aminotransferase 11 U/L (0-40); Albumin Level 4.3 g/dL (3.5-5.0); Alkaline Phosphatase 69 U/L (39-117); Anion Gap 10 (12-20); Aspartate Amino Transferase 21 U/L (5-37); Blood Urea Nitrogen 17 mg/dL (9-16); Calcium 8.8 mg/dL (8.4-10.2); Carbon Dioxide 25 mmol/L (22-29); Chloride 113 mmol/L (96-108); Estimated Glomerular Filt Rate > 60; Potassium 4.6 mmol/L (3.3-5.1); Sodium 143 mmol/L (135-145); Total Protein 6.6 g/dL (6.5-8.0)
[2024-11-29 14:24] LABS: B Type Natriuretic Peptide 29 pg/mL (<100)
== END 2024-11-29 11:15 | disposition home or self-care (01) ==
LOC: HO.HMGCLDS 11:14
PROVIDERS: PCP Internal Medicine; Visit Provider Internal Medicine
DX: Z01.818 Encounter for other preprocedural examination (principal); M17.0 Bilateral primary osteoarthritis of knee; D50.8 Other iron deficiency anemias; K21.9 Gastro-esophageal reflux disease without esophagitis; E11.9 Type 2 diabetes mellitus without complications; E78.9 Disorder of lipoprotein metabolism, unspecified; R00.1 Bradycardia, unspecified
CPT/HCPCS: 36415; 80053; 83721; 83880; 85025; 93005; 96127; 99212

== ENCOUNTER 2024-11-29 11:14 | Outpatient (AMB) | payer OTHER, SELFPAY ==
[2024-11-29 11:17] VITALS: BP 120/86; PULSE 47; O2SAT 98; BMI 33.5
--- NOTE | 2024-11-29 11:17 | MHC.PC.OV ---
Vital Signs 11/29/24 11:17 Height 5 ft 3 in Weight 189 lb BMI 33.5 BP 120/86 Blood Pressure Location Lt brachial Position Sitting Pulse 47 L Pulse Source Pulse Oximeter Pulse Oximetry (%) 98 Intake Visit Reasons: Pre op- EKG, CBC w/did, and BMP Drug Enforcement Administration Agent Required: No Allergies No Known Allergies (No Known Allergies*) Allergy (Verified 11/29/24 11:17) Medication List - Last Reconciled 11/29/24 by Suzette Campbell MD atorvastatin 20 mg PO DAILY cetirizine 10 mg PO DAILY clotrimazole-betamethasone 1-0.05 % 1 appl topical ONCE 30 days famotidine 40 mg PO BEDTIME hydroxyzine HCl 75 mg PO BEDTIME PRN lamotrigine 25 mg PO DAILY pantoprazole 40 mg PO DAILY sertraline 2 tabs PO DAILY topiramate 50 mg PO BID Tobacco use date assessed: 09/08/24 Dental Screening Dental Screen Date: 09/08/24 HPI Pre op- EKG, CBC w/did, and BMP HPI Details Chief Complaint The patient presents with impaired mobility due to knee problems requiring surgical intervention. History - The patient is a 54-year-old male presenting with right knee impairment requiring surgical intervention. Right - He reports chronic knee pain more pronounced on the right side, with the left knee experiencing less pain and not yet requiring surgical correction. - He acknowledges a history of sports activity, particularly weight training, which is pertinent given his maintained cardiovascular health. - He reports a history of anemia with prior hemoglobin levels noted as low (12.8), acknowledging ongoing management with supplemental iron. - The patient's heart rate remains persistently slower compared to peers, attributed to his past athletic activities. - Blood pressure recorded at 120/86 with no immediate concerns. - He denies any chest pain, shortness of breath, nausea, vomiting, abdominal pain, sore throat, headache, dizziness, fever, or significant swelling. 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 - He has a history of participation in sports with an emphasis on weight training. - Reports engaging in constant activity throughout the day as part of maintaining physical fitness and mobility. Diagnostic Results: - Labs: Previous hemoglobin level recorded at 12.8 mg/dL indicating anemia. - Diagnostic Tests: Electrocardiogram performed showing no new changes and a consistently slower heart rate. Medications - Atorvastatin 20 mg for hyperlipidemia - Cetirizine 10 mg for allergies - Famotidine 40 mg for GERD - Hydroxyzine at bedtime, prescribed for medical purposes not detailed - Lamotrigine, indication unspecified - Pantoprazole for GERD - Sertraline, indication unspecified - Topamax (Topiramate), indication unspecified Image of EKG is included with this not Problem List - Chronic Knee Pain bilateral secondary to osteoarthritis - going in for me replacement right side 12 of December - Anemia microcytic - GERD - Seasonal Allergic Rhinitis - bradycardia Plan The patient's right knee will undergo surgical correction as planned on December 12. Further blood tests are recommended to assess current hemoglobin levels due to a previous diagnosis of anemia. The patient is advised to continue with current medication regimens, adjusting as necessary in conjunction with his psychiatrist for ongoing management of mental health conditions. Preoperative evaluations confirm cardiovascular health is stable, with no current changes observed in EKG or overall heart function. Continued monitoring of allergy symptoms and GERD management is encouraged. No immediate concerns regarding vital signs or physical symptoms that would contraindicate upcoming surgery were identified. Encouragement is given to maintain physical activity to support health and recovery post-surgery. Patient is stable for right knee surgery At 14:31 Patient's today's labs came back Electrolytes stable kidney function stable random sugar 104 Liver enzymes stable BNP 29 CBC shows hemoglobin of 12.5 which is at baseline for the patient white count within normal limit Platelet count within normal limit [facility] Medical History Tubular adenoma Cocaine abuse Opioid abuse Chronic post-traumatic stress disorder (PTSD) Adjustment disorder with mixed disturbance of emotions and conduct Hyperlipidemia GERD (gastroesophageal reflux disease) Depression Surgical History H/O knee surgery History of bariatric surgery Family History Father Substance use disorder Mental health disorder Maternal Uncle Substance use disorder Paternal Uncle Substance use disorder Mother Mental health disorder Social History Household Members: None Housing: Apartment Do you presently have visiting nurse or other home services: No Alcohol intake: unknown Patient Tobacco Use Status: Current everyday Tobacco user Tobacco use type: Cigarette Cigarette Packs Per Day: 1 Cigarettes Per Day: 20.0 Years Smoked: 40 e-Cigarette/Vaping Use: Never Used Second Hand Smoke Exposure: No Substance Use Type: Crack/Cocaine and Marijuana service: No Current occupational status: unemployed Current occupation: rt handed Sexual orientation: Straight/Heterosexual Cognitive needs: No Hearing needs: No Vision needs: No Questionnaire PHQ-9 Over the last 2 weeks, how often have you been bothered by any of the following problems? 1. Little interest or pleasure in doing things: more than half the days 2. Feeling down, depressed, or hopeless: several days 3. Trouble falling or staying asleep, or sleeping too much: several days 4. Feeling tired or having little energy: more than half the days 5. Poor appetite or overeating: several days 6. Feeling bad about yourself - or that you are a failure or have let yourself or your family down: several days 7. Trouble concentrating on things, such as reading the newspaper or watching television: more than half the days 8. Moving or speaking so slowly that other people could have noticed. Or the opposite - being so fidgety or restless that you have been moving around a lot more than usual: several days 9. Thoughts that you would be better off or of hurting yourself in some way: nearly every day Total score: 14 Depression Screening Interpretation: Positive Depression Screening Follow-up: Existing condition and In treatment Depression Screening Done: Yes 88802 - PHQ-9 Billing: Yes Source: Developed by Drs. Guido Madsen, Tamiko Parikh, Ted Mccain and colleagues, with an educational wander from [employer]. Thrive Questionnaire Date Thrive assessed: 11/29/24 I am a: Patient What is your living situation today?: I have a steady place to live Within the past 12 months, did the food you bought not last and you didn't have the money to get more?: I choose not to answer this question Within the past 12 months, did you worry whether your food would run out before you got money to buy more?: I choose not to answer this question Do you have trouble paying for medicines?: No Do you have trouble getting transportation to medical appointments?: No Do you have trouble paying your heating and electricity bill?: No Do you have trouble taking care of your child, family member or friend?: I choose not to answer this question Do you have trouble with day-to-day activities such as bathing, preparing meals, shopping, managing finances, etc.?: Yes Are you currently unemployed and looking for a job?: I choose not to answer this question Are you interested in more education?: No Please select the resources that you would like help with: None Currently or been in a relationship where the following occur: I choose not to answer THRIVE Score: 0 AUDIT C Alcohol Use Questionnaire (AUDIT-C) 1. How often do you have a drink containing alcohol?: Monthly or less 2. How many drinks containing alcohol do you have on a typical day when you are drinking?: 3 or 4 3. How often do you have six or more drinks on one occasion?: Less than monthly Total Score: 3 Score Reviewed/Action Taken: Yes RENATE-7 AMB Questionnaire RENATE-7 Date RENATE - 7 assessed: 11/29/24 Feeling nervous, anxious, or on edge: 3 = Nearly every day Not being able to stop or control worryin = Nearly every day Worrying too much about different things: 3 = Nearly every day Trouble relaxin = Nearly every day Being so restless that it is hard to sit still: 3 = Nearly every day Becoming easily annoyed or irritable: 3 = Nearly every day Feeling afraid as if something awful might happen: 3 = Nearly every day Total RENATE-7 score (0-4 normal; 5-9 mild; 10-14 moderate; 15-21 severe): 21 Source: Developed by Drs. Guido Madsen, Tamiko Parikh, Ted Mccain and colleagues, with an educational wander from [employer]. RENATE-7 Assessment Billing RENATE-7 Assessment Tool: RENATE-7 Assessment 01911 Review of Systems Const Denies chills and Denies fever(s) ENT Denies epistaxis and Denies nasal discharge Card Denies chest pain Resp Denies chest congestion, Denies cough and Denies hemoptysis GI Denies diarrhea and Denies nausea Skin/Breast Denies rash Neuro Reports no additional complaints Psych Reports no additional complaints Endo Reports no additional complaints Physical exam (Primary Care) Vital Signs: Last Vital Signs Pulse 47 L 11/29/24 11:17 BP 120/86 11/29/24 11:17 Pulse Ox 98 11/29/24 11:17 BMI result Body Mass Index 33.5 Tobacco/Smoking Status: Tobacco use Status Tobacco use date assessed 09/08/24 11/29/24 11:19 Patient Tobacco Use Status Current everyday Tobacco 11/29/24 11:19 Tobacco use type Cigarette 11/29/24 11:19 e-Cigarette/Vaping Use Never Used 11/29/24 11:19 PHQ-9: PHQ-9 Score PHQ-9: Total score 14 11/29/24 11:50 Depression Screening Interpretation: Positive Depression Screening Follow-up: Existing condition and In treatment Thrive Assessment: Date of Thrive Assessment Date Thrive assessed 11/29/24 11/29/24 11:19 Currently or been in a relationship where the following occur: I choose not to answer Const General: cooperative, comfortable and no acute distress Orientation/consciousness: patient oriented x3 HENMT Head: Yes normocephalic Eyes General: appearance normal, both eyes and all related structures Neck Neck: Yes supple Resp Effort & Inspection: normal respiratory effort, no cough and no stridor Cardio Other: Rhythm: regular rhythm Heart sounds: S1 normal heart sound present and S2 normal heart sound present Skin General skin exam: turgor normal Neuro General: patient oriented x3, tone normal and moves all extremities Extrem Right lower extremity: no edema Left lower extremity: no edema Office Procedures EKG 35700-[id number], Complete Coding Level of Care Code Est Pt Level 5 (19664) Diagnoses Pre-op evaluation Z01.818 Primary osteoarthritis of both knees M17.0 Osteoarthritis type: primary Other iron deficiency anemia D50.8 Iron deficiency anemia type: other iron deficiency Gastroesophageal reflux disease without esophagitis K21.9 Esophagitis presence: without esophagitis Diet-controlled diabetes mellitus E11.9 Lipid disorder E78.9 Bradycardia R00.1 CPT Codes EKG - CPT: 20496-[id number], Complete ([id number]) Additional Codes RENATE-7 Assessment Billing - RENATE-7 Assessment Tool: RENATE-7 Assessment 37750 ([id number]) PHQ-9 - 72264 - PHQ-9 Billing: Yes ([id number]) Time Spent (min) 40 Comment Reviewing chart/ previous labs/dziz-lx-upya/EKG/coordination of care Assessment & Plan Assessment & Plan (1) Pre-op evaluation: Code(s): Z01.818 - Encounter for other preprocedural examination Category: Medical (2) Osteoarthritis of both knees: Code(s): M17.0 - Bilateral primary osteoarthritis of knee Category: Medical Qualifiers: Osteoarthritis type: primary Qualified Code(s): M17.0 - Bilateral primary osteoarthritis of knee (3) Iron deficiency anemia: Code(s): D50.9 - Iron deficiency anemia, unspecified Category: Medical Qualifiers: Iron deficiency anemia type: other iron deficiency Qualified Code(s): D50.8 - Other iron deficiency anemias (4) GERD (gastroesophageal reflux disease): Code(s): K21.9 - Gastro-esophageal reflux disease without esophagitis Category: Medical Qualifiers: Esophagitis presence: without esophagitis Qualified Code(s): K21.9 - Gastro-esophageal reflux disease without esophagitis (5) Diet-controlled diabetes mellitus: Code(s): E11.9 - Type 2 diabetes mellitus without complications Category: Medical (6) Lipid disorder: Code(s): E78.9 - Disorder of lipoprotein metabolism, unspecified Category: Medical (7) Bradycardia: Code(s): R00.1 - Bradycardia, unspecified Category: Medical Plan Chief Complaint The patient presents with impaired mobility due to knee problems requiring surgical intervention. History - The patient is a 54-year-old male presenting with right knee impairment requiring surgical intervention. Right - He reports chronic knee pain more pronounced on the right side, with the left knee experiencing less pain and not yet requiring surgical correction. - He acknowledges a history of sports activity, particularly weight training, which is pertinent given his maintained cardiovascular health. - He reports a history of anemia with prior hemoglobin levels noted as low (12.8), acknowledging ongoing management with supplemental iron. - The patient's heart rate remains persistently slower compared to peers, attributed to his past athletic activities. - Blood pressure recorded at 120/86 with no immediate concerns. - He denies any chest pain, shortness of breath, nausea, vomiting, abdominal pain, sore throat, headache, dizziness, fever, or significant swelling. 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 - He has a history of participation in sports with an emphasis on weight training. - Reports engaging in constant activity throughout the day as part of maintaining physical fitness and mobility. Diagnostic Results: - Labs: Previous hemoglobin level recorded at 12.8 mg/dL indicating anemia. - Diagnostic Tests: Electrocardiogram performed showing no new changes and a consistently slower heart rate. Medications - Atorvastatin 20 mg for hyperlipidemia - Cetirizine 10 mg for allergies - Famotidine 40 mg for GERD - Hydroxyzine at bedtime, prescribed for medical purposes not detailed - Lamotrigine, indication unspecified - Pantoprazole for GERD - Sertraline, indication unspecified - Topamax (Topiramate), indication unspecified Image of EKG is included with this not Problem List - Chronic Knee Pain bilateral secondary to osteoarthritis - going in for me replacement right side 12 of December - Anemia microcytic - GERD - Seasonal Allergic Rhinitis - bradycardia Plan The patient's right knee will undergo surgical correction as planned on December 12. Further blood tests are recommended to assess current hemoglobin levels due to a previous diagnosis of anemia. The patient is advised to continue with current medication regimens, adjusting as necessary in conjunction with his psychiatrist for ongoing management of mental health conditions. Preoperative evaluations confirm cardiovascular health is stable, with no current changes observed in EKG or overall heart function. Continued monitoring of allergy symptoms and GERD management is encouraged. No immediate concerns regarding vital signs or physical symptoms that would contraindicate upcoming surgery were identified. Encouragement is given to maintain physical activity to support health and recovery post-surgery. Patient is stable for right knee surgery At 14:31 Patient's today's labs came back Electrolytes stable kidney function stable random sugar 104 Liver enzymes stable BNP 29 CBC shows hemoglobin of 12.5 which is at baseline for the patient white count within normal limit Platelet count within normal limit Orders: Orders LDL Cholesterol Direct Today D50.8 - Other iron deficiency anemias, E11.9 - Type 2 diabetes mellitus without complications, E78.9 - Disorder of lipoprotein metabolism, unspecified, K21.9 - Gastro-esophageal reflux disease without esophagitis, M17.0 - Bilateral primary osteoarthritis of knee Complete Blood Count Auto Diff Today D50.8 - Other iron deficiency anemias, E11.9 - Type 2 diabetes mellitus without complications, E78.9 - Disorder of lipoprotein metabolism, unspecified, K21.9 - Gastro-esophageal reflux disease without esophagitis, M17.0 - Bilateral primary osteoarthritis of knee Comprehensive Met. Panel Today D50.8 - Other iron deficiency anemias, E11.9 - Type 2 diabetes mellitus without complications, E78.9 - Disorder of lipoprotein metabolism, unspecified, K21.9 - Gastro-esophageal reflux disease without esophagitis, M17.0 - Bilateral primary osteoarthritis of knee B Type Natriuretic Peptide Today D50.8 - Other iron deficiency anemias, E11.9 - Type 2 diabetes mellitus without complications, E78.9 - Disorder of lipoprotein metabolism, unspecified, K21.9 - Gastro-esophageal reflux disease without esophagitis, M17.0 - Bilateral primary osteoarthritis of knee
--- OUTSIDE RECORDS SUMMARY | 2024-11-29 11:58 | XMS_ITS | Clinical Summary ---
Author Organization [address] [facility] Address [address] [place] [address] Phone Care Team Providers Care Stain Remover Name Role Phone Eunice Worthington NP Primary Care Provider [phone] Allergies No known active allergies Medications acetaminophen [...] (diabetes mellitus), type 2 with neurological complications ([facility] V24, [facility] V28) 03/28/2024 Hyperlipidemia 03/28/2024 Hypertension 03/28/2024 GUME (obstructive sleep apnea) 03/28/2024 Class 1 obesity due to exces s calories with serious comorbidity and body mass index (BMI) of 34.0 to 34.9 in adult 03/28/2024 Intestinal malabsorption following gastrectomy 1 05/03/2018 Diabetic polyneuropathy ([facility] V24, [facility] V2 8) 10/21/2018 GERD (gastroesophageal [...] (diabetes mellitus), type 2 with neurological complications ([facility] V24, [facility] V28) DX:DM (diabetes mellitus), t ype 2 with neurological complications ([facility]) Class 3 severe obesity due t o excess calories with serious comorbidity and body mass index (BMI) of 40.0 to 44.9 in adult ([facility] V24, [facility] V28) 03/11/2018 DX:Class 3 severe obesity due to excess calories with serious comorbidity and body mass index (BMI) of 40.0 to 44.9 in adult ([facility]) Diabetic polyneuropathy ([facility] /[facility] V24, [facility] V28) 10/21/2018 DX:Diabetic polyneuropathy ( [facility]) Social History Tobacco Use Types [...] * Annual BMP Blood Test (06/08/2019) Pathologist [facility] Annual BMP Blood Test Abstracted [facility] Provider HEALTH MAINTENANCE Final Result * (ABNORMAL) Hemoglobin A1c (04/07/2018) Pathologist [facility] Hemoglobin A1C 7.4(A) <=6.5 % Blood Venous blood specimen / Unknown [facility] Provider LAB BLOOD ORDERABLES Zoey l Result * (ABNORMAL) Lipid panel (04/07/2018) [facility] LDL/HDL Ratio 3 0 - 4 Triglycerides 146 0 - 150 mg/dL Cholesterol 113 0 - 200 mg/dL HDL 33(A) >=40 mg/dL LDL Cholesterol 51 0 - 100 mg/dL Blood Venous blood specimen / Unknown [facility] Provider LAB BLOOD ORDERABLES Zoey l Result from Last 3 Months or Most Recently Relevant to Health Maintenance Insurance [facility] [employer] Care Teams Stain Remover Relationship Specialty Start Date End Date Eunice Worthington NP [address] [place] [address] PCP - General 09/23/18
== END 2024-11-29 13:11 | disposition home or self-care (01) ==
LOC: HO.HMCC 11:15
PROVIDERS: PCP Internal Medicine; Visit Provider Internal Medicine
DX: Z01.818 Encounter for other preprocedural examination (principal); M17.0 Bilateral primary osteoarthritis of knee; D50.8 Other iron deficiency anemias; K21.9 Gastro-esophageal reflux disease without esophagitis; E11.9 Type 2 diabetes mellitus without complications; E78.9 Disorder of lipoprotein metabolism, unspecified; R00.1 Bradycardia, unspecified

== ENCOUNTER → 2025-01-10 13:41 | Outpatient (BNVA) | payer OTHER, SELFPAY | PROVIDERS: PCP Internal Medicine; Visit Provider Internal Medicine | DX: K40.30 Unilateral inguinal hernia, with obstruction, without gangrene, not specified as recurrent (principal) | CPT/HCPCS: 96127; 99212 ==

== ENCOUNTER 2025-01-10 14:21 | Outpatient (AMB) | payer OTHER, SELFPAY ==
--- NOTE | 2025-01-10 14:21 | MHC.PC.OV ---
Vital Signs 01/10/25 14:22 Height 5 ft 3 in Intake Visit Reasons: internal lump Allergies No Known Allergies (No Known Allergies*) Allergy (Verified 01/10/25 14:22) Medication List - Last Reconciled 01/10/25 by Suzette Campbell MD atorvastatin 20 mg PO DAILY cetirizine 10 mg PO DAILY clotrimazole-betamethasone 1-0.05 % 1 appl topical ONCE 30 days famotidine 40 mg PO BEDTIME hydroxyzine HCl 75 mg PO BEDTIME PRN lamotrigine 25 mg PO DAILY pantoprazole 40 mg PO DAILY sertraline 2 tabs PO DAILY topiramate 50 mg PO BID Tobacco use date assessed: 09/08/24 Dental Screening Dental Screen Date: 09/08/24 HPI internal lump HPI Details History of Present Illness The patient is a 54 year old male presenting with left inguinal pain likely due to an inguinal hernia. Inguinal Hernia: - The patient reports left inguinal pain that began 5-6 days ago. - Describes the pain severity as 6-7 out of 10, especially during activities such as bending, sneezing, or coughing. - Initially noticed a mass in the left inguinal area that was painless, but now experiences pain. - Reports inability to reduce the hernia manually. - Works in a setting involving heavy lifting which could contribute to the issue. - No previous episodes of similar pain were mentioned. Social History: - The patient engages in work that involves heavy lifting. - No other social determinants of health were discussed. Problem List - Left Inguinal Hernia Patient Instructions - Need to consult a surgeon regarding the inguinal hernia. - If pain worsens or becomes unbearable, proceed to the emergency room immediately. - A CT scan has been ordered and follow-up with a surgeon should occur next week. Review of Systems - General: No fever no chills - Neurological: No headaches no dizziness - Ear nose throat: No sore throat no hearing difficulty no ear pain - Cardiovascular: No syncope, no chest pain, no palpitations - Gastrointestinal: No nausea vomiting or diarrhea - Endocrine: No polyuria polydipsia no heat intolerance - Genitourinary: No dysuria , no blood in urine Physical Exam General: No acute distress HEENT: No acute findings Neck: Supple Respiratory system: Able to talk in full sentences, no audible wheeze Cardiovascular: S1-S2 regular in rate and rhythm Gastrointestinal: Pain in the left inguinal region, rated 6-7/10, large bulge non reducible sore to palpation but no warmth or redness Extremities: No new findings MANAGER FINANCE: Alert awake oriented x3 motor intact Skin: Normal turgor PFSH Medical History Tubular adenoma Cocaine abuse Opioid abuse Chronic post-traumatic stress disorder (PTSD) Adjustment disorder with mixed disturbance of emotions and conduct Hyperlipidemia GERD (gastroesophageal reflux disease) Depression Surgical History H/O knee surgery History of bariatric surgery Family History Father Substance use disorder Mental health disorder Maternal Uncle Substance use disorder Paternal Uncle Substance use disorder Mother Mental health disorder Social History Household Members: None Housing: Apartment Do you presently have visiting nurse or other home services: No Alcohol intake: unknown Patient Tobacco Use Status: Current everyday Tobacco user Tobacco use type: Cigarette Cigarette Packs Per Day: 1 Cigarettes Per Day: 20.0 Years Smoked: 40 Packs Per Year: 40 Packs per year/per ci.00 e-Cigarette/Vaping Use: Never Used Second Hand Smoke Exposure: No Substance Use Type: Crack/Cocaine and Marijuana service: No Current occupational status: unemployed Current occupation: rt handed Sexual orientation: Straight/Heterosexual Cognitive needs: No Hearing needs: No Vision needs: No Questionnaire PHQ-9 Over the last 2 weeks, how often have you been bothered by any of the following problems? 1. Little interest or pleasure in doing things: more than half the days 2. Feeling down, depressed, or hopeless: several days 3. Trouble falling or staying asleep, or sleeping too much: several days 4. Feeling tired or having little energy: more than half the days 5. Poor appetite or overeating: several days 6. Feeling bad about yourself - or that you are a failure or have let yourself or your family down: several days 7. Trouble concentrating on things, such as reading the newspaper or watching television: more than half the days 8. Moving or speaking so slowly that other people could have noticed. Or the opposite - being so fidgety or restless that you have been moving around a lot more than usual: several days 9. Thoughts that you would be better off or of hurting yourself in some way: nearly every day Total score: 14 Depression Screening Interpretation: Positive Depression Screening Follow-up: Existing condition and In treatment Depression Screening Done: Yes 00282 - PHQ-9 Billing: Yes Source: Developed by Drs. Guido Madsen, Tamiko Parikh, Ted Mccain and colleagues, with an educational wander from [employer]. Thrive Questionnaire Date Thrive assessed: 11/29/24 I am a: Patient What is your living situation today?: I have a steady place to live Within the past 12 months, did the food you bought not last and you didn't have the money to get more?: I choose not to answer this question Within the past 12 months, did you worry whether your food would run out before you got money to buy more?: I choose not to answer this question Do you have trouble paying for medicines?: No Do you have trouble getting transportation to medical appointments?: No Do you have trouble paying your heating and electricity bill?: No Do you have trouble taking care of your child, family member or friend?: I choose not to answer this question Do you have trouble with day-to-day activities such as bathing, preparing meals, shopping, managing finances, etc.?: Yes Are you currently unemployed and looking for a job?: I choose not to answer this question Are you interested in more education?: No Please select the resources that you would like help with: None Currently or been in a relationship where the following occur: I choose not to answer THRIVE Score: 0 AUDIT C Alcohol Use Questionnaire (AUDIT-C) 1. How often do you have a drink containing alcohol?: Monthly or less 2. How many drinks containing alcohol do you have on a typical day when you are drinking?: 3 or 4 3. How often do you have six or more drinks on one occasion?: Less than monthly Total Score: 3 RENATE-7 AMB Questionnaire RENATE-7 Date RENATE - 7 assessed: 11/29/24 Feeling nervous, anxious, or on edge: 3 = Nearly every day Not being able to stop or control worryin = Nearly every day Worrying too much about different things: 3 = Nearly every day Trouble relaxin = Nearly every day Being so restless that it is hard to sit still: 3 = Nearly every day Becoming easily annoyed or irritable: 3 = Nearly every day Feeling afraid as if something awful might happen: 3 = Nearly every day Total RENATE-7 score (0-4 normal; 5-9 mild; 10-14 moderate; 15-21 severe): 21 Source: Developed by Drs. Guido Madsen, Tamiko Parikh, Ted Mccain and colleagues, with an educational wander from [employer]. Physical exam (Primary Care) Tobacco/Smoking Status: Tobacco use Status Tobacco use date assessed 09/08/24 01/10/25 14:22 Patient Tobacco Use Status Current everyday Tobacco 01/10/25 14:22 Tobacco use type Cigarette 01/10/25 14:22 e-Cigarette/Vaping Use Never Used 01/10/25 14:22 PHQ-9: PHQ-9 Score PHQ-9: Total score 14 01/10/25 14:26 Depression Screening Interpretation: Positive Depression Screening Follow-up: Existing condition and In treatment Thrive Assessment: Date of Thrive Assessment Date Thrive assessed 11/29/24 01/10/25 14:22 Currently or been in a relationship where the following occur: I choose not to answer Coding Level of Care Code Est Pt Level 5 (52344) Diagnoses Inguinal hernia of left side with obstruction K40.30 Additional Codes PHQ-9 - 62159 - PHQ-9 Billing: Yes ([id number]) Comment Urgent referral to surgeon and stat CT scan ordered, reviewing chart/labs/coordination Assessment & Plan Assessment & Plan (1) Inguinal hernia of left side with obstruction: Code(s): K40.30 - Unilateral inguinal hernia, with obstruction, without gangrene, not specified as recurrent Category: Medical Plan History of Present Illness The patient is a 54 year old male presenting with left inguinal pain likely due to an inguinal hernia. Inguinal Hernia: - The patient reports left inguinal pain that began 5-6 days ago. - Describes the pain severity as 6-7 out of 10, especially during activities such as bending, sneezing, or coughing. - Initially noticed a mass in the left inguinal area that was painless, but now experiences pain. - Reports inability to reduce the hernia manually. - Works in a setting involving heavy lifting which could contribute to the issue. - No previous episodes of similar pain were mentioned. Social History: - The patient engages in work that involves heavy lifting. - No other social determinants of health were discussed. Problem List - Left Inguinal Hernia Patient Instructions - Need to consult a surgeon regarding the inguinal hernia. - If pain worsens or becomes unbearable, proceed to the emergency room immediately. - A CT scan has been ordered and follow-up with a surgeon should occur next week. Orders: Orders CT angio abdomen pelvis Today K40.30 - Unilateral inguinal hernia, with obstruction, without gangrene, not specified as recurrent Referrals General Surgery Referral K40.30 - Unilateral inguinal hernia, with obstruction, without gangrene, not specified as recurrent
== END 2025-01-10 16:49 | disposition home or self-care (01) ==
LOC: HO.HMCC 14:21
PROVIDERS: PCP Internal Medicine; Visit Provider Internal Medicine
DX: K40.30 Unilateral inguinal hernia, with obstruction, without gangrene, not specified as recurrent (principal)

== ENCOUNTER 2025-01-16 09:34 | Outpatient (AMB) | payer OTHER, SELFPAY ==
--- NOTE | 2025-01-16 09:35 | MHC.OFFVIS ---
Vital Signs 01/16/25 09:43 Height 5 ft 3 in Weight 185 lb 6 oz BMI 32.8 BP 136/78 Blood Pressure Location Lt brachial Position Sitting Pulse 52 Intake Visit Reasons: unilateral umbilical hernia Intake Note: Patient referred by pcp Suzette Fitch for evaluation and treatment of Unilateral inguinal hernia. Patient c/o: left groin, reports pain, reports left testicle pain, reports occasional constipation, Hx bariatric surgery, reports burning sensation. Of note; pending order for abdomen pelvis CT. Bench Patternmaker Metal Required: Yes Bench Patternmaker Metal Language: Pipe Coverer Helper Services: Bench Patternmaker Metal Present Bench Patternmaker Metal Name: Latisha Information Interpreted: non-clinical & clinical Accompanied by: Spouse Allergies No Known Allergies (No Known Allergies*) Allergy (Verified 01/16/25 09:42) Medication List - Last Reconciled 01/16/25 by Kevin Bonner MD atorvastatin 20 mg PO DAILY cetirizine 10 mg PO DAILY clotrimazole-betamethasone 1-0.05 % 1 appl topical ONCE 30 days famotidine 40 mg PO BEDTIME hydroxyzine HCl 75 mg PO BEDTIME PRN lamotrigine 25 mg PO DAILY pantoprazole 40 mg PO DAILY sertraline 2 tabs PO DAILY topiramate 50 mg PO BID HPI HPI unilateral umbilical hernia: Details: 54-year-old male referred for left inguinal hernia. He says that he has had this for about 4 years but this seems to have been getting more uncomfortable with pain for the past 2-3 weeks. He says that the mass seems to have gotten bigger. Furthermore, he says that this does not really he had incised and does not reduced. He denies GI complaints He used to be a diabetic but he says this resolved after he had bariatric surgery many years ago. He says he feels healthy overall. He smokes 1 pack a day. [facility] Medical History (Updated 01/16/25 @ 10:00 by Kevin Bonner MD) Irreducible left inguinal hernia Tubular adenoma Cocaine abuse Opioid abuse Chronic post-traumatic stress disorder (PTSD) Adjustment disorder with mixed disturbance of emotions and conduct Hyperlipidemia GERD (gastroesophageal reflux disease) Depression Surgical History H/O knee surgery History of bariatric surgery Family History Father Substance use disorder Mental health disorder Maternal Uncle Substance use disorder Paternal Uncle Substance use disorder Mother Mental health disorder Social History Household Members: None Housing: Apartment Do you presently have visiting nurse or other home services: No Alcohol intake: unknown Patient Tobacco Use Status: Current everyday Tobacco user Tobacco use type: Cigarette Cigarette Packs Per Day: 1 Cigarettes Per Day: 20.0 Years Smoked: 40 e-Cigarette/Vaping Use: Never Used Second Hand Smoke Exposure: No Substance Use Type: Crack/Cocaine and Marijuana service: No Current occupational status: unemployed Current occupation: rt handed Sexual orientation: Straight/Heterosexual Cognitive needs: No Hearing needs: No Vision needs: No Review of Systems Const Denies chills and Denies fever(s) Card Denies chest pain, Denies dyspnea and Denies dyspnea on exertion Resp Denies cough, Denies dyspnea and Denies dyspnea on exertion GI Denies hematochezia and Denies change in bowel habits Denies hematuria and Denies difficulty urinating Musc Denies back pain and Denies limited range of motion Neuro Denies focal weakness and Denies convulsions Psych Denies depression and Denies mood swings Physical Exam Vital Signs: Last Vital Signs Pulse 52 01/16/25 09:43 BP 136/78 01/16/25 09:43 BMI result Body Mass Index 32.8 Const General: comfortable and no acute distress Orientation/consciousness: patient oriented x3 Neck Neck: Yes no lymphadenopathy Resp Auscultation: clear to auscultation bilaterally Cardio Rhythm: regular rhythm GI Other: Left groin with a mass, nonreducible, firm Palpation (GI): Soft to palpation, nontender and no guarding Neuro General: patient oriented x3 Assessment & Plan Assessment & Plan (1) Irreducible left inguinal hernia: Code(s): K40.30 - Unilateral inguinal hernia, with obstruction, without gangrene, not specified as recurrent Category: Medical Plan I explained to him the technique of repair of the left inguinal hernia with mesh.I reviewed the risks including but not limited to bleeding, infections, recurrence, bowel injury, injury to the vas deferens, as well as the benefits and alternatives. I explained to him what to expect postoperatively. He understands and wants to proceed. Since the mass is not reducible, I am going to order for a CAT scan to define this and to confirm this as being a hernia. He understands the plan well. Coding Level of Care Code New Pt Level 3 (91705) Diagnoses Irreducible left inguinal hernia K40.30
[2025-01-16 09:43] VITALS: BP 136/78; PULSE 52; BMI 32.8
--- OUTSIDE RECORDS SUMMARY | 2025-01-16 11:16 | XMS_ITS | Clinical Summary ---
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 Name Role Phone Eunice Worthington NP Primary Care Provider [phone] Allergies No known active allergies Medications acetaminophen [...] (diabetes mellitus), type 2 with neurological complications ([facility] V24, [facility] V28) 03/28/2024 Hyperlipidemia 03/28/2024 Hypertension 03/28/2024 GUME (obstructive sleep apnea) 03/28/2024 Class 1 obesity due to exces s calories with serious comorbidity and body mass index (BMI) of 34.0 to 34.9 in adult 03/28/2024 Intestinal malabsorption following gastrectomy 1 05/03/2018 Diabetic polyneuropathy ([facility] V24, [facility] V2 8) 10/21/2018 GERD (gastroesophageal reflux disease) 9 Osteoarthritis 11/07/2009 Overview (03/28/2024): Lumbar Spine Surgical History Surgery Date Site/Laterality Comments KNEE ARTHROSCOPY W/ MENISCAL REPAIR 09/21/2009 Right PROCEDURE: ID ARTHROSCOPY KNEE W/MENISCUS RPR MEDIAL/LATERAL Medical History Medical History Date Comments Depression DX:Depression GUME (obstructive sleep apnea) DX :GUME (obstructive sleep apnea) Hypertension DX:Hypertension Osteoarthritis 11/07/2009 DX:Osteoarthriti s; COMMENT: Lumbar Spine Hyperlipidemia DX:Hyperlipidemi a GERD (gastroesophageal reflu x disease) 10/21/2018 DX:GERD (gastroesophageal re flux disease) DM (diabetes mellitus), type 2 with neurological complications ([facility] V24, [facility] V28) DX:DM (diabetes mellitus), t ype 2 with neurological complications ([facility]) Class 3 severe obesity due t o excess calories with serious comorbidity and body mass index (BMI) of 40.0 to 44.9 in adult ([facility] V24, [facility] V28) 03/11/2018 DX:Class 3 severe obesity due to excess calories with serious comorbidity and body mass index (BMI) of 40.0 to 44.9 in adult ([facility]) Diabetic polyneuropathy ([facility] /[facility] V24, [facility] V28) 10/21/2018 DX:Diabetic polyneuropathy ( [facility]) Social History Tobacco Use Types [...] 06/08/2019 Cholesterol Screening (Lipid Panel) 04/07/2023 04/07/2018 Depression Screening 04/27/2024 COVID-19 Vaccine (1 - 2023-2 5 season) 2024 Influenza Vaccine (#1) 2024 HIB Vaccines Aged [...] * Annual BMP Blood Test (06/08/2019) Pathologist [facility] Annual BMP Blood Test Abstracted [facility] Provider HEALTH MAINTENANCE Final Result * (ABNORMAL) Hemoglobin A1c (04/07/2018) Pathologist [facility] Hemoglobin A1C 7.4(A) <=6.5 % Blood Venous blood specimen / Unknown [facility] Provider LAB BLOOD ORDERABLES Zoey l Result * (ABNORMAL) Lipid panel (04/07/2018) [facility] LDL/HDL Ratio 3 0 - 4 Triglycerides 146 0 - 150 mg/dL Cholesterol 113 0 - 200 mg/dL HDL 33(A) >=40 mg/dL LDL Cholesterol 51 0 - 100 mg/dL Blood Venous blood specimen / Unknown [facility] Provider LAB BLOOD ORDERABLES Zoey l Result from Last 3 Months or Most Recently Relevant to Health Maintenance Insurance [facility] Care Teams [employer] 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
== END 2025-01-16 09:56 | disposition home or self-care (01) ==
PROVIDERS: PCP Internal Medicine; Visit Provider Surgery
DX: K40.30 Unilateral inguinal hernia, with obstruction, without gangrene, not specified as recurrent (principal)
CPT/HCPCS: 99203

== ENCOUNTER → 2025-01-16 09:34 | Outpatient (BNVA) | payer OTHER, SELFPAY | PROVIDERS: PCP Internal Medicine; Visit Provider Surgery | DX: K40.30 Unilateral inguinal hernia, with obstruction, without gangrene, not specified as recurrent (principal) | CPT/HCPCS: 99202 ==

== ENCOUNTER 2025-02-21 14:03 | Emergency (ER) | payer OTHER, SELFPAY ==
--- NOTE | ~2025-02-21 | CT_ITS ---
CLINICAL HISTORY: abdominal pain, possible Left inguinal hernia CT abdomen and pelvis with contrast Comparison: None provided Findings: No consolidation or effusion. Changes related to gastric bypass surgery. Small hiatal hernia. Left kidney upper pole exophytic cysts measuring up to 1.6 cm. No hydronephrosis. Remainder of the solid organs are within normal limits. Unremarkable gallbladder and solid organs. No urolithiasis. No bowel obstruction, pneumoperitoneum, or pneumatosis. Pelvic contents unremarkable. Appendix is not definitely visualized. A complex thick walled septated solid cystic lesion within the left inguinal canal measuring 5.4 x 4.4 x 5.7 cm. The bones are intact. IMPRESSION: A complex thick walled septated solid cystic lesion within the left inguinal canal measuring 5.4 x 4.4 x 5.7 cm, Concerning for neoplastic process. Sonographic evaluation is recommended for further assessment. Changes related to gastric bypass surgery with small hiatal hernia. Left kidney upper pole exophytic cyst measuring up to 1.6 cm. This document has been electronically signed by: Tiana Foster MD on 02/21/2025 19:37:48
--- NOTE | ~2025-02-21 | US_ITS ---
CLINICAL HISTORY: Left inguinal mass seen on CT c rec for US US pelvis transabdominal and transvaginal with Doppler Comparison: CT/SR - CT ABDOMEN PELVIS W IV CON - 02/21/25 18:43 EDT Findings: Left inguinal region complex multiloculated solid cystic mass measuring 5.9 x 3.7 x 5.5 cm with areas of lace-like appearance. IMPRESSION: 1. Left inguinal region complex multiloculated solid cystic mass with areas of internal lace-like appearance. Differentials include hemorrhagic cyst / resolving hematoma, Or abscess. Neoplastic process with undescended testicles with carcinoma can not be entirely excluded. Correlate with clinical history. Short-term follow-up or MRI of the pelvis with and without contrast can be obtained for further evaluation. This document has been electronically signed by: Tiana Foster MD on 02/21/2025 21:25:08
[2025-02-21 14:36] VITALS: BP 135/81; PULSE 55; RESP 18; TEMP 36.6; O2SAT 98; BMI 33.3
--- NOTE | 2025-02-21 14:40 | ED.GENADULT ---
HPI - General Adult General Chief complaint: Abdominal Pain Stated complaint: Hernia, sent by PCP Time Seen by Provider: 02/21/25 17:46 History of Present Illness ED Provider: Tera LARA narrative: The patient is a 54-year-old male who says that he has done a lot of heavy physical labor during most of his working life. He says about 2 years ago he started to feel as if he has a small lump in his left groin. Over time he feels this is gotten bigger and it has bothered him a great deal over the last 2 months. He saw his primary care doctor who referred him to General surgery. He was seen by Dr. Bonner who felt that he had a non reducible mass in the left groin. The plan was for the patient to get a CAT scan to confirm that this is a hernia. Apparently the patient has been having trouble with the insurance and therefore the CAT scan has been delayed. Last night the pain of his mass was very bad and this morning he has a small amount of blood on the toilet paper after wiping himself following a bowel movement. He became worried and came to the hospital today because of this. He has had no fever, sweats, chills. No nausea or vomiting. No change in appetite. Related Data Home Medications ?Medication ?Instructions ?Recorded ?Confirmed sertraline 100 mg tablet 2 tab PO DAILY 06/19/21 01/16/25 hydroxyzine HCl 25 mg tablet 75 mg PO BEDTIME PRN 06/24/23 01/16/25 lamotrigine 25 mg tablet 25 mg PO DAILY 11/07/24 01/16/25 topiramate 50 mg tablet 50 mg PO BID 11/07/24 01/16/25 Previous Rx's ?Medication ?Instructions ?Recorded famotidine 40 mg tablet 40 mg PO BEDTIME #90 tabs 11/18/23 clotrimazole-betamethasone 1 1 appl topical ONCE rash 30 days 03/23/24 %-0.05 % topical cream #45 grams pantoprazole 40 mg tablet,delayed 40 mg PO DAILY #60 tabs 07/22/24 release atorvastatin 20 mg tablet 20 mg PO DAILY #90 tabs 10/18/24 cetirizine 10 mg tablet 10 mg PO DAILY #90 tabs 01/13/25 Allergies Allergy/AdvReac Type Severity Reaction Status Date / Time No Known Allergies (No Known Allergy Verified 02/21/25 14:39 Allergies*) Review of Systems Review of Systems: Yes all other systems are reviewed and are negative [facility] Past Medical History Medical History (Updated 02/22/25 @ 00:00 by Lena Hinkle) Irreducible left inguinal hernia Tubular adenoma Cocaine abuse Opioid abuse Chronic post-traumatic stress disorder (PTSD) Adjustment disorder with mixed disturbance of emotions and conduct Hyperlipidemia GERD (gastroesophageal reflux disease) Depression Surgical History H/O knee surgery History of bariatric surgery Family History Family History Father Substance use disorder Mental health disorder Maternal Uncle Substance use disorder Paternal Uncle Substance use disorder Mother Mental health disorder Social History Social History Household Members: None Housing: Apartment Do you presently have visiting nurse or other home services: No Alcohol intake: unknown Patient Tobacco Use Status: Current everyday Tobacco user Tobacco use type: Cigarette Cigarette Packs Per Day: 1 Cigarettes Per Day: 20.0 Years Smoked: 40 e-Cigarette/Vaping Use: Never Used Second Hand Smoke Exposure: No Substance Use Type: Crack/Cocaine and Marijuana service: No Current occupational status: unemployed Current occupation: rt handed Sexual orientation: Straight/Heterosexual Cognitive needs: No Hearing needs: No Vision needs: No Physical Exam ED Vital Signs: Vital Signs - 24 hr 02/21/25 14:36 02/21/25 17:43 02/21/25 18:32 Temperature 98 F 98.2 F 98.3 F Pulse Rate 55 46 L 58 Respiratory Rate 18 16 18 Blood Pressure 135/81 116/74 124/78 Pulse Oximetry 98 100 98 Oxygen Delivery Method Room Air Room Air Room Air 02/21/25 21:22 02/21/25 21:53 Temperature 98.2 F 98.2 F Pulse Rate 59 59 Respiratory Rate 16 16 Blood Pressure 114/62 114/62 Pulse Oximetry 98 98 Oxygen Delivery Method Room Air Room Air BMI result Body Mass Index 33.3 Const Other: The patient is awake and alert, pleasant cooperative. He did not seem in overt distress. Orientation/consciousness: patient oriented x3 HENMT Other: The face is symmetrical. ?Mucous membranes moist. Eyes Other: Pupils are round equal, conjunctivae are clear, extraocular movements intact Neck Neck: Yes normal visual inspection and Yes full ROM Resp Effort & Inspection: normal respiratory effort Auscultation: clear to auscultation bilaterally Cardio Rate: regular rate Rhythm: regular rhythm Heart sounds: S1 normal heart sound present and S2 normal heart sound present GI Other: The abdomen seems soft and nontender. Other: The patient had an area of swelling in the left inguinal region. There was a boggy mass that did not extend into his scrotum. We the mass was in the region that one might expect atypical inguinal hernia. I was unable to reduce the mass. Scrotal contents seemed normal. Skin Other: The skin is dry and unremarkable Neuro General: patient oriented x3, gait normal, tone normal, moves all extremities, no focal motor deficits and CN's II-XI intact bilaterally Extrem Other: There is no calf swelling or tenderness. No asymmetry. No peripheral edema. Course Course Course Narrative: RME: 54 year male presents to ED for left lower quadrant abdominal pain, blood in stool, left we will groin hernia that is painful. Patient was still have a CAT scan done but his insurance canceled. Patient presents to the ED for evaluation. Medications Administered Discontinued Medications Generic Name Dose Route Start Last Admin Trade Name Freq PRN Reason Stop Dose Admin Sodium Chloride 1,000 mls @ 999 mls/hr 02/21/25 18:15 02/21/25 21:07 Ns IV 02/21/25 19:15 Infused .Q1H1M LESLIE Infusion Iohexol 100 ml 02/21/25 18:47 02/21/25 18:48 Iohexol 350 Mg/Ml 100 Ml Infus..Btl IV 02/21/25 18:48 85 ml ONCE ONE Administration Ketorolac Tromethamine 15 mg 02/21/25 18:02 02/21/25 18:37 Ketorolac Tromethamine 15 Mg/Ml Vial IVPUSH 02/21/25 18:03 15 mg ONCE ONE Administration Medical Decision Making Medical Decision Making MDM Narrative: The patient is a 54-year-old male with a mass in his left groin. This seems potentially consistent with a hernia and he has seen his PCP and a general surgeon regarding this mass. There was a plan for the patient to have an outpatient CT scan to confirm whether this is in fact the hernia because the mass has been irreducible. Today the patient says the pain associated with the mass has been worse recently. He also seemed a large and that he had a small amount of blood with his stool today. Initially I attempted to reduce the mass and was unsuccessful. I then ordered a CT scan. The CT scan suggest that there is a left inguinal mass which is probably not a hernia. An ultrasound was advised for further characterization. CT result: IMPRESSION: A complex thick walled septated solid cystic lesion within the left inguinal canal measuring 5.4 x 4.4 x 5.7 cm, Concerning for neoplastic process. Sonographic evaluation is recommended for further assessment. Changes related to gastric bypass surgery with small hiatal hernia. Left kidney upper pole exophytic cyst measuring up to 1.6 cm. The ultrasound has the following impression: IMPRESSION: 1. Left inguinal region complex multiloculated solid cystic mass with areas of internal lace-like appearance. Differentials include hemorrhagic cyst / resolving hematoma, Or abscess. Neoplastic process with undescended testicles with carcinoma can not be entirely excluded. Correlate with clinical history. Short-term follow-up or MRI of the pelvis with and without contrast can be obtained for further evaluation. Based on the results of these 2 studies I think the patient may be discharged with the recommendation to contact Dr. Bonner again for further recommendations in how to pursue evaluation of this mass. He should also follow up with his PCP. The patient did not seem acutely ill in any way. He was eating cheerfully in the emergency room and he seemed to walk without any difficulty. Lab Data 02/21/25 15:12 02/21/25 15:12 Labs: Lab Results 02/21/25 Range/Units 15:12 WBC 5.0 (4.8-10.8) X10*3/uL RBC 4.52 L (4.60-5.80) X10*6/uL Hgb 13.4 L (14.0-18.0) g/dl Hct 39.1 L (42.0-52.0) % MCV 86.5 (80.0-98.0) fL MCH 29.6 (27.0-33.0) pg MCHC 34.3 (31.0-36.0) g/dl RDW 13.2 (11.0-16.0) % Plt Count 194 (160-400) X10*3/uL MPV 10.4 (9.4-12.4) fL Immature Gran % (Auto) 0.2 (0.0-0.4) % Neut % (Auto) 57.8 (45-73) % Lymph % (Auto) 31.6 (20-40) % [place] % (Auto) 7.6 (2-11) % Eos % (Auto) 1.8 (0-4) % Baso % (Auto) 1.0 (0-2) % Lymph # (Auto) 1.6 (1.2-4.9) X10*3/uL [place] # (Auto) 0.4 (0.1-1.2) X10*3/uL Eos # (Auto) 0.1 (0.0-0.4) X10*3/uL Baso # (Auto) 0.1 (0.0-0.2) X10*3/uL Abs Immat Gran (auto) 0.01 (0.00-0.03) X10*3/uL Absolute Neuts (auto) 2.9 (2.0-8.3) x10*3/uL Absolute Nucleated RBC 0.000 (0.0-0.012) X10*3/uL Nucleated RBC % (auto) 0.0 (0.0-0.2) /100WBC Sodium 142 (135-145) mmol/L Potassium 4.6 (3.3-5.1) mmol/L Chloride 113 H (96-108) mmol/L Carbon Dioxide 25 (22-29) mmol/L Anion Gap 9 L (12-20) BUN 15 (9-16) mg/dL Creatinine 0.93 (0.5-1.4) mg/dL Estim Creat Clear Calc 89.6 Estimated GFR > 60 Random Glucose 114 (60-115) mg/dL Calcium 9.2 (8.4-10.2) mg/dL Total Bilirubin 0.3 (0.0-1.0) mg/dL AST 19 (5-37) U/L ALT 9 (0-40) U/L Alkaline Phosphatase 77 (39-117) U/L Total Protein 7.2 (6.5-8.0) g/dL Albumin 4.6 (3.5-5.0) g/dL Discharge Plan Discharge Clinical Impression: Left groin mass Patient Disposition: Home, Self-Care Additional Instructions: You had a CAT scan and you also had an ultrasound to evaluate the nature of the swelling in your left groin. This seems to be some kind of a cyst. This is an unusual finding and I am not sure of the exact significance of this finding. In order to pursue this further I would recommend contacting Dr. Bonner, the surgeon you saw previously. Please call Dr. Bonner's office in the morning to make a follow up appointment soon to discuss this further. Also stay in touch with your regular primary care doctor. Return to the emergency room if significantly worse. Prescriptions: No Action atorvastatin 20 mg tablet 20 mg PO DAILY Qty: 90 1RF cetirizine 10 mg tablet 10 mg PO DAILY Qty: 90 0RF sertraline 100 mg tablet 2 tab PO DAILY hydroxyzine HCl 25 mg tablet 75 mg PO BEDTIME PRN pantoprazole 40 mg tablet,delayed release (DR/EC) 40 mg PO DAILY Qty: 60 2RF lamotrigine 25 mg tablet 25 mg PO DAILY topiramate 50 mg tablet 50 mg PO BID famotidine 40 mg tablet 40 mg PO BEDTIME Qty: 90 3RF clotrimazole-betamethasone 1-0.05 % cream 1 appl topical ONCE 30 Days Qty: 45 3RF Referrals: Suzette Campbell MD [Primary Care Provider, Internal Medicine] Kevin Bonner MD [Physician, General Surgery] Interventions: ED Discharge Assessment Last Done: 02/21/25 21:53 Discharge Date/Time: 02/21/25 21:53 Print Language: Croatian
[2025-02-21 15:16] LABS: MANUAL DIFF FLAG NO
[2025-02-21 15:19] LABS: Hematocrit 39.1 % (42.0-52.0); Hemoglobin 13.4 g/dl (14.0-18.0); Imm Gran Abs Auto 0.01 X10*3/uL (0.00-0.03); Imm Gran Pct Auto 0.2 % (0.0-0.4); Lymphocytes Absolute Auto 1.6 X10*3/uL (1.2-4.9); Mean Corpuscular HGB Conc 34.3 g/dl (31.0-36.0); Mean Corpuscular Hemoglobin 29.6 pg (27.0-33.0); Mean Corpuscular Volume 86.5 fL (80.0-98.0); NRBC Abs Auto 0.000 X10*3/uL (0.0-0.012); NRBC Pct Auto 0.0 /100WBC (0.0-0.2); Platelet Count 194 X10*3/uL (160-400); Red Blood Count 4.52 X10*6/uL (4.60-5.80); White Blood Count 5.0 X10*3/uL (4.8-10.8)
[2025-02-21 15:33] LABS: Alanine Aminotransferase 9 U/L (0-40); Albumin Level 4.6 g/dL (3.5-5.0); Alkaline Phosphatase 77 U/L (39-117); Anion Gap 9 (12-20); Aspartate Amino Transferase 19 U/L (5-37); Blood Urea Nitrogen 15 mg/dL (9-16); Calcium 9.2 mg/dL (8.4-10.2); Carbon Dioxide 25 mmol/L (22-29); Chloride 113 mmol/L (96-108); Creatinine Clr Calc Pharmacy 89.6; Estimated Glomerular Filt Rate > 60; Potassium 4.6 mmol/L (3.3-5.1); Sodium 142 mmol/L (135-145); Total Protein 7.2 g/dL (6.5-8.0)
[2025-02-21 17:43] VITALS: BP 116/74; PULSE 46; RESP 16; TEMP 36.8; O2SAT 100
[2025-02-21 18:32] VITALS: BP 124/78; PULSE 58; RESP 18; TEMP 36.8; O2SAT 98
[2025-02-21] MEDS: iohexoL 350 MG/ML 100 ML INFUS..BTL IV (18:48)
--- OUTSIDE RECORDS SUMMARY | 2025-02-21 20:17 | XMS_ITS | Clinical Summary ---
Author Organization [address] [facility] Address [address] [place] [address] Phone Care Team Providers Care Fire Technology Instructor Name Role Phone Eunice Worthington NP Primary Care Provider [phone] Allergies No known active allergies Medications acetaminophen [...] (diabetes mellitus), type 2 with neurological complications ([facility] V24, [facility] V28) 03/28/2024 Hyperlipidemia 03/28/2024 Hypertension 03/28/2024 GUME (obstructive sleep apnea) 03/28/2024 Class 1 obesity due to exces s calories with serious comorbidity and body mass index (BMI) of 34.0 to 34.9 in adult 03/28/2024 Intestinal malabsorption following gastrectomy 1 05/03/2018 Diabetic polyneuropathy ([facility] V24, [facility] V2 8) 10/21/2018 GERD (gastroesophageal reflux disease) 9 Osteoarthritis 11/07/2009 Overview (03/28/2024): Lumbar Spine Surgical History Surgery Date Site/Laterality Comments KNEE ARTHROSCOPY W/ MENISCAL REPAIR 09/21/2009 Right PROCEDURE: [place] ARTHROSCOPY KNEE W/MENISCUS RPR MEDIAL/LATERAL Medical History Medical History Date Comments Depression DX:Depression GUME (obstructive sleep apnea) DX :GUME (obstructive sleep apnea) Hypertension DX:Hypertension Osteoarthritis 11/07/2009 DX:Osteoarthriti s; COMMENT: Lumbar Spine Hyperlipidemia DX:Hyperlipidemi a GERD (gastroesophageal reflu x disease) 10/21/2018 DX:GERD (gastroesophageal re flux disease) DM (diabetes mellitus), type 2 with neurological complications ([facility] V24, [facility] V28) DX:DM (diabetes mellitus), t ype 2 with neurological complications ([facility]) Class 3 severe obesity due t o excess calories with serious comorbidity and body mass index (BMI) of 40.0 to 44.9 in adult ([facility] V24, [facility] V28) 03/11/2018 DX:Class 3 severe obesity due to excess calories with serious comorbidity and body mass index (BMI) of 40.0 to 44.9 in adult ([facility]) Diabetic polyneuropathy ([facility] /HCC V24, [facility]/HCC V28) 10/21/2018 DX:Diabetic polyneuropathy ( HCC) Social [...] Health Maintenance Due Date Last Done Comments Colorectal Cancer Screening: Colonoscopy 1972 Diabetes: Annual Foot Exam 1982 Diabetes: Annual Retina Eye Exam 1982 DTaP,Tdap,and Td Vaccines (1 - Tdap) 1991 Hepatitis B Vaccines (1 of 3 - 19+ 3-dose series) 1991 Pneumococcal Vaccine: 50+ Ye ars (1 of 2 - PCV) 1991 Diabetes: Annual GFR (Glomer ular Filtration Rate) 06/08/2020 06/08/2019 RSV Immunization Adult Patie nts (1 - Risk 50-74 years 1-dose series) 2022 Zoster Vaccines (1 of 2) 2022 HIV Screening 03/30/2022 Hepatitis C Screening 03/30/2022 Social Influencers of Health Screening 03/30/2022 Diabetes: Annual Urine Albumin-Creatinine Ratio (uACR) 04/11/2022 Diabetes: Blood Sugar Contro l Test (HGBA1C) 04/11/2022 04/07/2018 Hypertension/CHF/CAD Annual BMP Blood Test 04/11/2022 06/08/2019 Cholesterol Screening (Lipid Panel) 04/07/2023 04/07/2018 Depression Screening 04/27/2024 COVID-19 Vaccine ( - 2023-2 5 season) 2024 Influenza Vaccine [...] Annual BMP Blood Test (06/08/2019) Pathologist [facility] Annual BMP Blood Test Abstracted [facility] Provider HEALTH MAINTENANCE Final Result * (ABNORMAL) Hemoglobin A1c (04/07/2018) Pathologist [facility] Hemoglobin A1C 7.4(A) <=6.5 % Blood Venous blood specimen / Unknown Result [facility] Provider LAB BLOOD ORDERABLES Zoey l Result * (ABNORMAL) Lipid panel (04/07/2018) Pathologist [facility] LDL/HDL Ratio 3 0 - 4 Triglycerides 146 0 - 150 mg/dL Cholesterol 113 0 - 200 mg/dL HDL 33(A) >=40 mg/dL LDL Cholesterol 51 0 - 100 mg/dL Blood Venous blood specimen / Unknown [facility] Provider LAB BLOOD ORDERABLES Zoey l Result from Last 3 Months or Most Recently Relevant to Health Maintenance Insurance [facility] Care Teams Fire Technology Instructor Relationship Specialty Start Date End Date Eunice Worthington NP [address] [place] [address] PCP - General 09/23/18
[2025-02-21 21:22] VITALS: BP 114/62; PULSE 59; RESP 16; TEMP 36.8; O2SAT 98
[2025-02-21 21:53] VITALS: BP 114/62; PULSE 59; RESP 16; TEMP 36.8; O2SAT 98
== END 2025-02-21 21:53 | disposition home or self-care (01) ==
PROVIDERS: Physician Assistant; Emergency Provider Emergency Medicine; PCP Internal Medicine
DX: R19.09 Other intra-abdominal and pelvic swelling, mass and lump (principal); R10.9 Unspecified abdominal pain; F17.200 Nicotine dependence, unspecified, uncomplicated; Z71.6 Tobacco abuse counseling
CPT/HCPCS: 36415; 74177; 76857; 80053; 85025; 96361; 96374; 99285; J1885; Q9967

== ENCOUNTER → 2025-02-21 18:02 | Outpatient (BNV) | payer OTHER, SELFPAY | PROVIDERS: Emergency Provider Emergency Medicine; PCP Internal Medicine; Visit Provider Student in an Organized Health Care Education/Training Program | DX: R10.84 Generalized abdominal pain (principal); R19.09 Other intra-abdominal and pelvic swelling, mass and lump | CPT/HCPCS: 74177; 76857 ==

== ENCOUNTER → 2025-03-30 10:18 | Outpatient (BNV) | payer OTHER, SELFPAY | PROVIDERS: PCP Internal Medicine; Visit Provider Radiology Diagnostic Radiology | DX: R19.09 Other intra-abdominal and pelvic swelling, mass and lump (principal) | CPT/HCPCS: 72197 ==

== ENCOUNTER 2025-03-30 10:28 | Outpatient (REF) | payer OTHER, SELFPAY ==
--- NOTE | ~2025-03-30 | MR_ITS ---
EXAMINATION: MR PELVIS WITHOUT THEN WITH IV CONTRAST HISTORY: R19.09 - Other intra-abdominal and pelvic swelling, mass and lump. TECHNIQUE: Axial T1 and fat-suppressed T1, axial fat-suppressed T2, and coronal and sagittal T2-weighted MR images of the pelvis were obtained. Subsequently, axial and sagittal fat-suppressed T1 weighted images were obtained after the intravenous administration of 8.5 mm Gadavist. COMPARISON: Correlation is made with a CT of the pelvis dated 02/21/2025 and a limited pelvic ultrasound dated 02/21/2025. FINDINGS: There is a mass in the left inguinal region measuring 5.8 x 3.8 x 5.4 cm. The mass is a multiseptated appearance with peripheral low signal intensity on T1 and central increased signal intensity. On T2-weighted images, there is peripheral T2 hyperintensity with central low signal intensity. On T1-weighted images, the central portion is hyperintense to muscle but becomes hypointense with fat suppression. These findings are suggestive of internal fatty component. There is no significant contrast enhancement. There is a 2.0 x 1.3 cm right external iliac lymph node. The prostate and seminal vesicles are unremarkable. The testes appear normally located within the scrotal sac. There is no free fluid in the pelvis. The urinary bladder is unremarkable. No hernia is demonstrated. The visualized bones demonstrate normal marrow signal intensity. MR/MR pelvis wo/w con IMPRESSION: 5.8 x 3.8 x 5.4 cm multiseptated left inguinal mass without associated enhancement. Signal characteristics favor an internal fatty component. Differential diagnostic considerations include atypical lipoma/liposarcoma and hematoma. As the imaging findings are atypical, ultrasound-guided biopsy is recommended. Findings and recommendation were sent to Dr. Bonner by secure text message on 03/30/2025 at 12:03 PM. Electronically signed by: Guido Escudero MD 03/30/2025 12:03 PM [facility]
--- OUTSIDE RECORDS SUMMARY | 2025-03-30 12:56 | XMS_ITS | Clinical Summary ---
Author Organization 175 [facility] Address [address] [place] [address] Phone Care Team Providers Care Child Care Sitter Name Role Phone Eunice Worthington NP Primary Care Provider [phone] Allergies No known active allergies Medications acetaminophen [...] (diabetes mellitus), type 2 with neurological complications ([facility] V24, [facility] V28) 03/28/2024 Hyperlipidemia 03/28/2024 Hypertension 03/28/2024 GUME (obstructive sleep apnea) 03/28/2024 Class 1 obesity due to exces s calories with serious comorbidity and body mass index (BMI) of 34.0 to 34.9 in adult 03/28/2024 Intestinal malabsorption following gastrectomy 1 05/03/2018 Diabetic polyneuropathy ([facility] V24, [facility] V2 8) 10/21/2018 GERD (gastroesophageal reflux disease) 9 Osteoarthritis 11/07/2009 Overview (03/28/2024): Lumbar Spine Surgical History Surgery Date Site/Laterality Comments KNEE ARTHROSCOPY W/ MENISCAL REPAIR 09/21/2009 Right PROCEDURE: [place] ARTHROSCOPY KNEE W/MENISCUS RPR MEDIAL/LATERAL Medical History Medical History Date Comments Depression DX:Depression GUME (obstructive sleep apnea) DX :GUME (obstructive sleep apnea) Hypertension DX:Hypertension Osteoarthritis 11/07/2009 DX:Osteoarthriti s; COMMENT: Lumbar Spine Hyperlipidemia DX:Hyperlipidemi a GERD (gastroesophageal reflu x disease) 10/21/2018 DX:GERD (gastroesophageal re flux disease) DM (diabetes mellitus), type 2 with neurological complications ([facility] V24, [facility] V28) DX:DM (diabetes mellitus), t ype 2 with neurological complications ([facility]) Class 3 severe obesity due t o excess calories with serious comorbidity and body mass index (BMI) of 40.0 to 44.9 in adult ([facility] V24, [facility] V28) 03/11/2018 DX:Class 3 severe obesity due to excess calories with serious comorbidity and body mass index (BMI) of 40.0 to 44.9 in adult ([facility]) Diabetic polyneuropathy ([facility] /[facility]CC V24, [facility] V28) 10/21/2018 DX:Diabetic polyneuropathy ( [facility] [...] Depression Screening 04/27/2024 COVID-19 Vaccine ( - 2024-2 6 season) 2024 Influenza Vaccine (#1) 2024 HIB [...] * Annual BMP Blood Test (06/08/2019) Pathologist [facility] Annual BMP Blood Test Abstracted [facility] Provider HEALTH MAINTENANCE Final Result * (ABNORMAL) Hemoglobin A1c (04/07/2018) Pathologist [facility] Hemoglobin A1C 7.4(A) <=6.5 % Blood Venous blood specimen / Unknown Result [facility] Provider LAB BLOOD ORDERABLES Zoey l Result * (ABNORMAL) Lipid panel (04/07/2018) Pathologist [facility] LDL/HDL Ratio 3 0 - 4 Triglycerides 146 0 - 150 mg/dL Cholesterol 113 0 - 200 mg/dL HDL 33(A) >=40 mg/dL LDL Cholesterol 51 0 - 100 mg/dL Blood Venous blood specimen / Unknown [facility] Provider LAB BLOOD ORDERABLES Zoey l Result from Last 3 Months or Most Recently Relevant to Health Maintenance Insurance [facility] [employer] Care Teams Child Care Sitter Relationship Specialty Start Date End Date Eunice Worthington NP [address] [place] [address] PCP - General 09/23/18
== END 2025-03-30 10:29 | disposition home or self-care (01) ==
LOC: HO.MRI 10:28
PROVIDERS: PCP Internal Medicine; Visit Provider Surgery
DX: R19.09 Other intra-abdominal and pelvic swelling, mass and lump (principal)
CPT/HCPCS: 72197; A9585

== ENCOUNTER 2025-04-05 11:34 | Outpatient (AMB) | payer OTHER, SELFPAY ==
--- NOTE | 2025-04-05 11:35 | A.OFFVIS_ITS ---
Vital Signs 04/05/25 11:41 Height 5 ft 4 in Weight 142 lb 8 oz BMI 24.5 BP 129/78 Blood Pressure Location Rt brachial Position Sitting Pulse 53 Intake Visit Reasons: MRI Results Intake Note: Patient presents for MRI results, Pt c/o; reports sharp pains radiates towards back and left knee. Fund Accounting Manager Required: Yes Fund Accounting Manager Language: Farm Management Adviser Services: Fund Accounting Manager Present Fund Accounting Manager Name: Latisha Information Interpreted: non-clinical & clinical Accompanied by: Spouse Allergies No Known Allergies (No Known Allergies*) Allergy (Verified 04/05/25 11:49) Medication List - Last Reconciled 04/05/25 by Kevin Bonner MD atorvastatin 20 mg PO DAILY cetirizine 10 mg PO DAILY clotrimazole-betamethasone 1-0.05 % 1 appl topical ONCE 30 days famotidine 40 mg PO BEDTIME hydroxyzine HCl 75 mg PO BEDTIME PRN lamotrigine 25 mg PO DAILY pantoprazole 40 mg PO DAILY sertraline 2 tabs PO DAILY topiramate 50 mg PO BID HPI HPI MRI Results: Details: He is here for a follow up for his left groin mass. My initial impression was that this was an area reducible left inguinal hernia. I had sent him for imaging studies including a CAT scan and an MRI and this shows that this iis not a hernia. He continues to have this left groin mass. He denies GI complaints. He feels that this mass is getting bigger. He says he he is having discomfort in the area as well as on the thigh because of this mass. [facility], LATER [facility] Medical History Irreducible left inguinal hernia Tubular adenoma Cocaine abuse Opioid abuse Chronic post-traumatic stress disorder (PTSD) Adjustment disorder with mixed disturbance of emotions and conduct Hyperlipidemia GERD (gastroesophageal reflux disease) Depression Surgical History H/O knee surgery History of bariatric surgery Family History Father Substance use disorder Mental health disorder Maternal Uncle Substance use disorder Paternal Uncle Substance use disorder Mother Mental health disorder Social History Household Members: None Housing: Apartment Do you presently have visiting nurse or other home services: No Alcohol intake: unknown Patient Tobacco Use Status: Current everyday Tobacco user Tobacco use type: Cigarette Cigarette Packs Per Day: 1 Cigarettes Per Day: 20.0 Years Smoked: 40 e-Cigarette/Vaping Use: Never Used Second Hand Smoke Exposure: No Substance Use Type: Crack/Cocaine and Marijuana service: No Current occupational status: unemployed Current occupation: rt handed Sexual orientation: Straight/Heterosexual Cognitive needs: No Hearing needs: No Vision needs: No Review of Systems Const Denies chills and Denies fever(s) Card Denies chest pain, Denies dyspnea and Denies dyspnea on exertion Resp Denies cough, Denies dyspnea and Denies dyspnea on exertion GI Denies hematochezia and Denies change in bowel habits Denies hematuria and Denies difficulty urinating Musc Denies back pain and Denies limited range of motion Neuro Denies focal weakness and Denies convulsions Psych Denies depression and Denies mood swings Physical Exam Vital Signs: Last Vital Signs Pulse 53 04/05/25 11:41 BP 129/78 04/05/25 11:41 BMI result Body Mass Index 24.5 Const General: comfortable and no acute distress Resp Effort & Inspection: normal respiratory effort Cardio Rate: regular rate GI Other: Vague mass in the left groin, nonreducible Palpation (GI): Soft to palpation, not firm, nontender and no guarding Assessment & Plan Assessment & Plan (1) Left groin mass: Code(s): R19.09 - Other intra-abdominal and pelvic swelling, mass and lump Category: Medical Plan: His imaging studies including an MRI showed this 5.8 x 3.8 x 5.4 cm multiseptated left inguinal mass with associated enhancement. Differential diagnosis includes atypical lipoma or liposarcoma in the hematoma. An ultrasound-guided biopsy was recommended by the radiologist I explained to him the technique of this procedure. I will see him again in the office after the biopsy to review the path report He understands the plan well. Orders: Orders US biopsy lymph node 04/05/25 R19.09 - Other intra-abdominal and pelvic swelling, mass and lump Coding Level of Care Code Est Pt Level 3 (23940) Diagnoses Left groin mass R19.09
[2025-04-05 11:41] VITALS: BP 129/78; PULSE 53; BMI 24.5
== END 2025-04-05 11:54 | disposition home or self-care (01) ==
LOC: HO.HGS 11:35
PROVIDERS: PCP Internal Medicine; Visit Provider Surgery
DX: R19.09 Other intra-abdominal and pelvic swelling, mass and lump (principal)
CPT/HCPCS: 99213

== ENCOUNTER → 2025-04-05 11:34 | Outpatient (BNVA) | payer OTHER, SELFPAY | PROVIDERS: PCP Internal Medicine; Visit Provider Surgery | DX: R19.09 Other intra-abdominal and pelvic swelling, mass and lump (principal) | CPT/HCPCS: 99212 ==

== ENCOUNTER 2025-04-25 12:19 | Outpatient (REF) | payer OTHER, SELFPAY ==
--- NOTE | ~2025-04-25 | US_ITS ---
EXAMINATION: US GUIDED FINE NEEDLE ASPIRATION HISTORY: R19.09 - LEFT INGUINAL pelvic swelling, mass and lump COMPARISON: Previous CT and ultrasound of the pelvis January 2025 and MR of the pelvis March 2025 Technique: Procedure risks and benefits including bleeding and infection were discussed with the patient and informed consent was obtained. Left groin was prepped and draped in the usual sterile fashion. The skin and soft tissues were anesthetized with 1% lidocaine plain. Using a coaxial system, a 17-gauge needle was positioned in the left groin mass. Cloudy driver-colored thick fluid with multiple driver colored solid components was aspirated. A total of 25 mL of fluid was removed. Specimen was sent for cytology pathology flow cytometry and microbiology studies. The patient experienced severe pain during the procedure. Planned 18-gauge core biopsies were not performed at this time due to significant patient discomfort. FINDINGS: There is a oval-shaped slightly lobulated avascular 6.1 x 3.5 x 5.8 cm slightly hypoechoic soft tissue mass that was targeted for ultrasound-guided fine-needle aspiration. US/US guided fine needle asp IMPRESSION: Ultrasound-guided left groin mass and fine needle aspiration. 25 mL of thick driver-colored complex fluid with multiple solid components was aspirated and sent for studies described above. Core biopsy was not performed as planned at this time due to severe patient discomfort. This could be performed at a later date with conscious sedation for better pain control if clinically warranted. This was explained to the patient at the completion of the procedure. Electronically signed by: Rashida Wilkerson MD 04/26/2025 08:51 AM [facility]
[2025-04-25] MEDS: Lidocaine HCl 1 % MPF 5 ML VIAL SUBCUT (14:12)
--- OUTSIDE RECORDS SUMMARY | 2025-04-25 16:18 | XMS_ITS | Clinical Summary ---
Author Organization [address] [facility] Address [address] [place] [address] Phone Care Team Providers [facility] Location Manager Name Role Phone Eunice Worthington NP Primary Care Provider [phone] Allergies No known active allergies Medications acetaminophen [...] (diabetes mellitus), type 2 with neurological complications 03/28/2024 Hyperlipidemia 03/28/2024 Hypertension 03/28/2024 GUME (obstructive sleep apnea) 03/28/2024 Class 1 obesity due to exces s calories with serious comorbidity and body mass index (BMI) of 34.0 to 34.9 in adult 03/28/2024 Intestinal malabsorption following gastrectomy 1 05/03/2018 Diabetic polyneuropathy 10/21/2018 GERD (gastroesophageal reflux disease) 9 Osteoarthritis [...] mellitus), type 2 with neurological complications ([facility] V24, [facility] V28) DX:DM (diabetes mellitus), t ype 2 with neurological complications (HCC) Class 3 severe obesity due t o excess calories with serious comorbidity and body mass index (BMI) of 40.0 to 44.9 in adult (CMS/HCC V24, [facility] V28) 03/11/2018 DX:Class 3 severe obesity due to excess calories with serious comorbidity and body mass index (BMI) of 40.0 to 44.9 in adult ([facility]) Diabetic polyneuropathy (CMS /HCC V24, CMS/[facility] V28) 10/21/2018 DX:Diabetic polyneuropathy ( HCC) Social [...] on file Sexual Orientation Not on file Plan of Treatment Health Maintenance Due Date Last Done Comments Colorectal Cancer Screening: Colonoscopy 1972 Drug Screen 1972 Non-Opioid Controlled Substa nce Agreement 1972 Diabetes: Annual Foot Exam 1982 Diabetes: [...] * Annual BMP Blood Test (06/08/2019) Pathologist [facility] Annual BMP Blood Test Abstracted [facility] Provider HEALTH MAINTENANCE Final Result * (ABNORMAL) Hemoglobin A1c (04/07/2018) [facility] Hemoglobin A1C 7.4(A) <=6.5 % Blood Venous blood specimen / Unknown [facility] Provider LAB BLOOD ORDERABLES Zoey l Result * (ABNORMAL) Lipid panel (04/07/2018) [facility] LDL/HDL Ratio 3 0 - 4 Triglycerides 146 0 - 150 mg/dL Cholesterol 113 0 - 200 mg/dL HDL 33(A) >=40 mg/dL LDL Cholesterol 51 0 - 100 mg/dL Blood Venous blood specimen / Unknown [facility] Provider LAB BLOOD ORDERABLES Zoey l Result from Last 3 Months or Most Recently Relevant to Health Maintenance Insurance [id number] [place] [id number] [facility] Care Teams [facility] Location Manager Relationship Specialty Start Date End Date Eunice Worthington NP [address] [place] [address] PCP - General 09/23/18
== END 2025-04-25 12:20 | disposition home or self-care (01) ==
LOC: HO.US 12:19
PROVIDERS: PCP Internal Medicine; Visit Provider Surgery
DX: R19.04 Left lower quadrant abdominal swelling, mass and lump (principal)
CPT/HCPCS: 10005; 87070; 87073; 87205; 88304; J2003

== ENCOUNTER → 2025-04-25 12:21 | Outpatient (BNV) | payer OTHER, SELFPAY | PROVIDERS: PCP Internal Medicine; Visit Provider Radiology Diagnostic Radiology | DX: R19.04 Left lower quadrant abdominal swelling, mass and lump (principal) | CPT/HCPCS: 10005 ==